=== PATIENT | female | born 1950 | race Caucasian/White ===

== ENCOUNTER → 2018-06-03 10:04 | Outpatient (CLI) | payer OTHER, SELFPAY ==
--- NOTE | 2018-06-03 10:11 | XR_ITS ---
DEXA SCAN.-BONE DENSITY STUDY HIPS AND LUMBAR SPINE HISTORY: Postmenopausal female 68-year-old female. HISTORY of fracture as an adult. Hypothyroidism. Low calcium intake. Smoker. Takes levothyroxine. TECHNIQUE: DEXA scan hip and lumbar spine The most complete data summary and color graphic presentation of the today's ( and any prior ) DEXA findings are available in PACS. Definition and treatment guidelines included. COMPARISON: None listed LUMBAR SPINE: Normal bone density overall and at all vertebral body levels L2 vertebral body demonstrates the lowest T score 0.0 with BMD1.195 g/cm sq Overall mean lumbar L1-L4 T score 0.8 with BMD1.28 g/cm sq . . HIPS: Femoral neck density is best predictor of hip fracture risk . Left femoral neck demonstrates the lowest T score = -0.6 with BMD0.961 g/cm sq . Normal bone density Right femoral neck T score = -0.9 Averaging all regions yields today's today's Hip Mean T score 0.1 with BMD1.02 g/cm sq . . IMPRESSION 1. LUMBAR SPINE: Normal bone density overall , as well as at each all vertebral body levels 2. HIPS: Normal bone density at hips overall. Overall hip T score = -0.1. Also normal density at right and left femoral neck WHO criteria for post-menopausal, Women: Normal: T-score at or above -1 SD Osteopenia: T-score between -1 and -2.5 SD Osteoporosis: T-score at or below -2.5 SD
--- NOTE | 2018-06-03 10:11 | MM_ITS ---
MM Dig screening mamm BI w/CAD ORDERING PHYSICIAN : Malvin Blackman PATIENT AGE: 68 years GENDER: Female COMPARISON: August 2013, July 2012 screening mammogram digital INDICATION: ITS.REASON: SCREENING no hormones. No new complaints. Noncontributory family history. TECHNIQUE: Standard CC and MLO images were obtained. R2 CAD reviewed. FINDINGS: Low-density breast. Generalized fatty replacement. No dominant mass nor suspicious calcifications in either breast. No significant new areas of concern in either breast. Bilateral follow-up in one year adequate CAD computer review highlights no areas of concern either. IMPRESSION: Stable bilateral mammogram. Low-density breast with no areas of concern. Bilateral follow-up in one year recommended BI-RADS Category: 1 Negative RECOMMENDED FOLLOW-UP: 1YR 1 YEAR FOLLOW-UP (A letter has been sent to the patient regarding results of the study.)
== END ==
PROVIDERS: Family Provider Internal Medicine; PCP Internal Medicine; Visit Provider Internal Medicine
DX: Z12.31 Encounter for screening mammogram for malignant neoplasm of breast (principal); Z13.820 Encounter for screening for osteoporosis; Z78.0 Asymptomatic menopausal state
CPT/HCPCS: 77067; 77080

== ENCOUNTER → 2018-06-20 14:03 | Outpatient (POV) | payer OTHER, SELFPAY | PROVIDERS: Family Provider Internal Medicine; PCP Internal Medicine; Visit Provider Dermatology | DX: Z00.00 Encounter for general adult medical examination without abnormal findings (principal) ==

== ENCOUNTER 2020-08-06 13:31 | Emergency (ER) | payer OTHER, MEDICARE, SELFPAY ==
[2020-08-06 13:32] VITALS: BP 142/63; PULSE 97; RESP 18; TEMP 38.2; O2SAT 99; BMI 30.9
--- NOTE | 2020-08-06 13:51 | XR_ITS ---
PROCEDURE: XR CHEST PORTABLE CLINICAL HISTORY: cough cough with fever and chills COMPARISON: CR CXR CHEST(2 VIEWS-NOT PORTABLE) from 04/15/2017 FINDINGS: The cardiomediastinal silhouette and pulmonary vascularity are within normal limits. There is patchy density overlying the left lower lobe suspicious for an area of atelectasis or infiltrate. The remaining lungs are clear. No acute bony abnormalities. IMPRESSION: Left lower lobe atelectasis or infiltrate Dictated by: Jason Duran MD 08/06/2020 14:34 Jason Duran MD in [place] 08/06/2020 14:34
[2020-08-06 13:59] VITALS: BP 142/63; PULSE 93; O2SAT 98
--- NOTE | 2020-08-06 14:06 | HMH.EDGENADL ---
ED Disposition Clinical Impression: Gastroenteritis Left lower lobe pneumonia Qualifiers: Pneumonia type: due to unspecified organism Qualified Code(s): J18.9 - Pneumonia, unspecified organism Disposition: Home, Self-Care Condition on Discharge: Good Instructions: DI for Diarrhea and Traveler's Diarrhea -- Adult, DI for Pneumonia -- Adult Prescriptions: Doxycycline Hyclate [Doxycycline 100mg Capsule] 100 mg PO Q12 #20 cap [id number] Ondansetron [Zofran 4mg ODT] 4 mg PO BIDP PRN #6 tab PRN Reason: Nausea And Vomiting Transmission Status[facility] Referrals: Malvin Blackman [Primary Care Provider] - - Critical Care Critical Care Time: No Attestation: On 08/06/20, the high probability of a clinically significant, sudden or life threatening deterioration of the following system(s) required my full and direct attention, intervention and personal management. The time I documented below is in addition to time spent performing reported procedures but includes the following listed in this critical care notation. Medical Decision Making - Medical Records Medical records reviewed: Yes: I reviewed the patient's medical records. - Terrance Inquiry Pt receiving controlled substance: No Vital Signs: 08/06/20 13:32 08/06/20 13:59 08/06/20 14:33 Temperature 100.8 F H Temperature Source Oral Pulse Rate [Right] 97 H 93 H 90 Respiratory Rate 18 20 Blood Pressure [Right Arm] 142/63 H 142/63 H 142/64 H Blood Pressure Mean [Right Arm] 89 89 90 Blood Pressure Source [Right Arm] Automatic Cuff Automatic Cuff Automatic Cuff Blood Pressure Position [Right Arm] Sitting Sitting Sitting 02 Sat by Pulse Oximetry 99 98 92 L Oxygen Delivery Method Room Air Nasal Cannula Room Air Oxygen Flow Rate (LPM) 2 08/06/20 15:20 Temperature Temperature Source Pulse Rate [Right] 101 H Respiratory Rate 20 Blood Pressure [Right Arm] 149/59 H Blood Pressure Mean [Right Arm] 89 Blood Pressure Source [Right Arm] Automatic Cuff Blood Pressure Position [Right Arm] Sitting 02 Sat by Pulse Oximetry 98 Oxygen Delivery Method Room Air Oxygen Flow Rate (LPM) - Lab Data Lab Results 08/06/20 13:55: WBC 12.0 H, RBC 5.18, Hgb 15.9, Hct 47.6 H, MCV 91.9, MCH 30.7, MCHC 33.4, RDW 13.7, Plt Count 263, MPV 9.3, Neut % (Auto) 77.9, Lymph % (Auto) 17.7, [place] % (Auto) 1.5 L, Eos % (Auto) 2.3, Baso % (Auto) 0.7, Neut # (Auto) 9.3 H, Lymph # (Auto) 2.1, [place] # (Auto) 0.2, Eos # (Auto) 0.3, Baso # (Auto) 0.1 08/06/20 13:55: Sodium 143, Potassium 3.8, Chloride 106, Carbon Dioxide 28, Anion Gap 12.8, BUN 19 H, Creatinine 0.60, Estimated Creat Clear 69, Estimated GFR 99, Est GFR ( Amer) 120, Glucose 95, Calcium 9.5, Total Bilirubin 0.6, AST 28, ALT 25, Alkaline Phosphatase 75, Troponin I < 0.01, Total Protein 7.0, Albumin 4.3, Globulin 2.7, Albumin/Globulin Ratio 1.6, Lipase 97 08/06/20 13:55: Lactate 1.8 08/06/20 14:30: Influenza Type A Ag Negative, Influenza Type B Ag Negative Result diagrams: 08/06/20 13:55 08/06/20 13:55 Orders (Tests/Meds): ED MEDICATIONS Generic Name Dose Route Start Last Admin Trade Name Freq PRN Reason Stop Dose Admin Sodium Chloride 8 ml 08/06/20 13:51 Sodium Chloride 0.9% 10ml Vial IV 09/05/20 13:50 NEEDED PRN dilute pepcid Discontinued Medications Generic Name Dose Route Start Last Admin Trade Name Freq PRN Reason Stop Dose Admin Acetaminophen 1,000 mg 08/06/20 14:26 08/06/20 15:26 Acetaminophen 500mg Tab PO 08/06/20 14:27 1,000 mg ONCE ONE Administration Famotidine 20 mg 08/06/20 13:51 08/06/20 14:32 Famotidine 20mg/2ml Vial IV 08/06/20 13:52 20 mg ONCE ONE Administration Sodium Chloride 1,000 mls @ 999 mls/hr 08/06/20 14:00 08/06/20 14:05 Sod Chlor 0.9% 1000ml Bag IV 08/06/20 15:00 999 mls/hr .Q1H1M CYNTHIA Administration Ondansetron HCl 4 mg 08/06/20 13:51 08/06/20 14:07
[2020-08-06 14:08] LABS: Basophils # 0.1 K/mm3 (0-0.2); Basophils % 0.7 % (0.1-2.0); Eosinophils # 0.3 K/mm3 (0.0-0.4); Eosinophils % 2.3 % (0.1-12.0); Hematocrit 47.6 % (37.0-47.0); Hemoglobin 15.9 g/dL (12.2-16.2); Lymphocytes # 2.1 K/mm3 (0.7-4.5); Lymphocytes % 17.7 % (10-50); Mean Corpuscular HGB Conc 33.4 g/dL (31.8-35.4); Mean Corpuscular Hemoglobin 30.7 pg (27.0-31.2); Mean Corpuscular Volume 91.9 fl (81-99); Mean Platelet Volume 9.3 fl (7.4-10.4); Monocytes # 0.2 K/mm3 (0.1-1.0); Monocytes % 1.5 % (1.7-9.3); Neutrophils # 9.3 K/mm3 (1.8-7.8); Neutrophils % 77.9 % (37.0-80.0); Platelet Count 263 K/mm3 (142-424); Red Blood Count 5.18 M/mm3 (4.20-5.40); Red Cell Distribution Width 13.7 % (11.5-17.5)
[2020-08-06 14:12] LABS: Chloride 106 mmol/L (98-107); Potassium 3.8 mmoL/L (3.5-5.1); Sodium 143 mmol/L (136-145)
[2020-08-06 14:14] LABS: Alanine Aminotransferase 25 U/L (12-78); Blood Urea Nitrogen 19 mg/dl (7-17); Creatinine Clearance Estimated 69 mL/min (50-200); Estimated Glomerular Filt Rate 99 ml/min (>60); GFR (African American) 120 ML/MIN (>60)
[2020-08-06 14:15] LABS: Albumin Level 4.3 g/dl (3.5-5.0); Albumin/Globulin Ratio 1.6 (1.1-1.8); Alkaline Phosphatase 75 U/L (38-126); Anion Gap 12.8 mEq/L (5-15); Aspartate Amino Transferase 28 U/L (14-36); Bilirubin,Total 0.6 mg/dl (0.2-1.3); Calcium 9.5 mg/dl (8.4-10.2); Carbon Dioxide 28 mmol/L (22.0-30.0); Globulin 2.7 g/dL (1.3-3.2); Glucose 95 mg/dl (74-100); Lipase 97 U/L (23-300)
[2020-08-06 14:16] LABS: Lactic Acid 1.8 mmol/L (0.7-2.1)
[2020-08-06 14:30] LABS: Troponin I < 0.01 ng/ml (0.00-0.034)
[2020-08-06 14:33] VITALS: BP 142/64; PULSE 90; RESP 20; O2SAT 92
--- NOTE | 2020-08-06 14:33 | PC.NURSE ---
Pt states that she is unable to urinate at this time
[2020-08-06 15:20] VITALS: BP 149/59; PULSE 101; RESP 20; O2SAT 98
[2020-08-06 15:49] VITALS: BP 146/65; PULSE 97; RESP 20; TEMP 38.2; O2SAT 100
== END 2020-08-06 15:51 | disposition home or self-care (01) ==
PROVIDERS: Emergency Provider Emergency Medicine; PCP Internal Medicine
DX: K52.9 Noninfective gastroenteritis and colitis, unspecified (principal); J18.9 Pneumonia, unspecified organism; Z20.828 Contact with and (suspected) exposure to other viral communicable diseases; E03.9 Hypothyroidism, unspecified; F17.210 Nicotine dependence, cigarettes, uncomplicated; Z79.899 Other long term (current) drug therapy
CPT/HCPCS: 71045; 80053; 83605; 83690; 84484; 85025; 87275; 87276; 96365; 96375; 99284; J2405; U0003

== ENCOUNTER 2021-02-10 10:02 | Emergency (ER) | payer BC, MEDICARE, SELFPAY ==
[2021-02-10 10:11] VITALS: BP 123/87; PULSE 83; RESP 18; TEMP 37; O2SAT 98; BMI 34.3
--- NOTE | 2021-02-10 10:29 | HMH.EDUTC ---
[facility] [place]ression: Diverticulitis Disposition: Home, Self-Care Condition on Discharge: Good Instructions: Diverticulitis Additional Instructions: Turn to the emergency department for worsening abdominal pain nausea vomiting or any other concerns within the next 8 hours otherwise take antibiotics head was instructed and follow-up with primary care physician Prescriptions: Ciprofloxacin [Ciprofloxacin 500mg/5ml Oral Susp] 500 mg PO BID 10 Days ml Prescription Printed Ciprofloxacin HCl 500 mg PO BID 10 Days #20 tab [facility]: [email or web address] metroNIDAZOLE [metroNIDAZOLE 500mg Tablet] 500 mg PO TID 10 Days #30 tab Transmission Status: Re[facility] by [email or web address] Ondansetron [Zofran 4mg ODT] 4 mg PO TIDP PRN #15 tab PRN Reason: Nausea Transmission Status: [email or web address] Referrals: Malvin Blackman [Primary Care Provider] - Medical Decision Making - Medical Records Medical records reviewed: No: I reviewed the patient's medical records. - Terrance Inquiry Pt receiving controlled substance: No Vital Signs: 02/10/21 10:11 02/10/21 11:04 02/10/21 11:34 Temperature 98.6 F 98.6 F Temperature Source Oral Oral Pulse Rate Pulse Rate [Right] 83 81 94 H Respiratory Rate 18 16 20 Blood Pressure Blood Pressure [Right Arm] 123/87 133/71 107/44 L Blood Pressure Mean [Right Arm] 99 91 65 Blood Pressure Source [Right Arm] Automatic Cuff 02 Sat by Pulse Oximetry 98 97 98 Oxygen Delivery Method Room Air Room Air 02/10/21 12:52 Temperature 98.2 F Temperature Source Oral Pulse Rate 91 H Pulse Rate [Right] Respiratory Rate 16 Blood Pressure 123/54 L Blood Pressure [Right Arm] Blood Pressure Mean [Right Arm] Blood Pressure Source [Right Arm] 02 Sat by Pulse Oximetry Oxygen Delivery Method - Lab Data Lab results reviewed: Yes: I reviewed the patient's lab results. Lab Results 02/10/21 10:50: WBC 12.4 H, RBC 5.21, Hgb 15.9, Hct 49.2 H, MCV 94.3, MCH 30.5, MCHC 32.4, RDW 13.6, Plt Count 192, MPV 8.4, Neut % (Auto) 82.5 H, Lymph % (Auto) 14.6, [facility] % (Auto) 1.7, Eos % (Auto) 0.7, Baso % (Auto) 0.5, Neut # (Auto) 10.2 H, Lymph # (Auto) 1.8, [facility] # (Auto) 0.2, Eos # (Auto) 0.1, Baso # (Auto) 0.1 02/10/21 10:50: Sodium 141, Potassium 3.9, Chloride 101, Carbon Dioxide 24, Anion Gap 19.9 H, BUN 27 H, Creatinine 0.90, Estimated Creat Clear 77, Estimated GFR 62, Est GFR ( Amer) 75, Glucose 129 H, Calcium 9.6, Total Bilirubin 1.5 H, AST 41 H, ALT 33, Alkaline Phosphatase 84, Total Protein 7.7, Albumin 4.8, Globulin 2.9, Albumin/Globulin Ratio 1.7 02/10/21 10:50: Magnesium 1.8, Lipase 47 02/10/21 10:59: Stl Aeromonas (PCR) Not detected, Stl C. cayetanensis PCR Not detected, Stool Rotavirus (PCR) Not detected, Stl Adenov F 40/41 PCR Not detected, Stool Astrovirus (PCR) Not detected, Stool Campylobacter PCR Not detected, Stl C.difficile Tox PCR Not detected, Stool Cryptosporidium PCR Not detected, Stl E.coli Shiga Tox PCR Not detected, Stool E coli O157 PCR Not detected, Stl Enterotoxigenic E PCR Not detected, Stool EPEC (PCR) Not detected, Stool EAEC (PCR) Not detected, Stl E. histolytica PCR Not detected, Stool Giardia Lamblia PCR Not detected, Stool Salmonella PCR Not detected, Stool Sapovirus (PCR) Not detected, Stl P. shigelloides PCR Not detected, Stl Shigella/EIEC PCR Not detected, St Y.enterocolitica PCR Not detected, Stool Vibrio (PCR) Not detected, Stl Vibrio cholerae PCR Not detected, Stl Norovirus GI/GII PCR Not detected 02/10/21 11:15: Lactate 3.6 H Result diagrams: 02/10/21 10:50 02/10/21 10:50 Orders (Tests/Meds): ED MEDICATIONS Discontinued Medications Generic Name Dose Route Start Last Admin Trade Name Freq PRN Reason Stop Dose Admin Acetaminophen 650 mg 02/10/21 10:31 02/10/21 11:09 Acetaminophen 325mg Tab PO 02/10/21 10:32 650 mg ONCE ONE Administration Sodium Chloride 1,000 mls @ 999 mls/hr
--- NOTE | 2021-02-10 10:54 | PC.NURSE ---
SPOKE WITH LIBRA CHINO GIVING REPORT. PT TAKEN TO ROOM EIGHT BY WHEELCHAIR.
[2021-02-10 10:56] LABS: Basophils # 0.1 K/mm3 (0-0.2); Basophils % 0.5 % (0.1-2.0); Eosinophils # 0.1 K/mm3 (0.0-0.4); Eosinophils % 0.7 % (0.1-12.0); Hematocrit 49.2 % (37.0-47.0); Hemoglobin 15.9 g/dL (12.2-16.2); Lymphocytes # 1.8 K/mm3 (0.7-4.5); Lymphocytes % 14.6 % (10-50); Mean Corpuscular HGB Conc 32.4 g/dL (31.8-35.4); Mean Corpuscular Hemoglobin 30.5 pg (27.0-31.2); Mean Corpuscular Volume 94.3 fl (81-99); Mean Platelet Volume 8.4 fl (7.4-10.4); Monocytes # 0.2 K/mm3 (0.1-1.0); Monocytes % 1.7 % (1.7-9.3); Neutrophils # 10.2 K/mm3 (1.8-7.8); Neutrophils % 82.5 % (37.0-80.0); Platelet Count 192 K/mm3 (142-424); Red Blood Count 5.21 M/mm3 (4.20-5.40); Red Cell Distribution Width 13.6 % (11.5-17.5); White Blood Count 12.4 K/mm3 (4.8-10.8)
--- NOTE | 2021-02-10 11:01 | CT_ITS ---
PROCEDURE: CT ABDOMEN PELVIS W CON CLINICAL INDICATION: abdominal pain COMPARISON: No exams were available for comparison TECHNIQUE: IV Contrast: 75ML Isovue 370 Oral Contrast None Axial images obtained with sagittal and coronal reformats. All CT scans at the facility use one or more dose reduction, viz: automated exposure control, ma/kV adjustment per patient size (including targeted exams where dose is matched to indication, i.e. head), or iterative reconstruction technique. FINDINGS: LOWER THORAX: Mild atelectatic or fibrotic changes are present in the lingula ABDOMEN & PELVIS: Hepatic steatosis. No focal liver lesion is evident. The spleen, adrenal glands, and pancreas have an unremarkable appearance. No renal calculi or renal mass or hydronephrosis. There is mild somewhat diffuse thickening of the sigmoid colon with some minimal stranding of the pericolic fat suspicious for diverticulitis. No abscess or free air is apparent. There is mild diffuse thickening of the cecum ascending colon transverse and descending colon with multiple colonic diverticula noted. There is mild diffuse thickening also of the sigmoid colon. There are some some air-fluid levels in the sigmoid colon and ascending colon. The small bowel has an unremarkable appearance. Status post hysterectomy. Small amount fluid is present in the pelvis and adjacent to the left aspect of the sigmoid colon No acute bony anomalies. IMPRESSION: 1. Mild diffuse thickening of the colon with a few scattered air-fluid levels consistent with colitis. 2. There is colonic diverticulosis with slight increase in thickening of the sigmoid colon compared to the remaining colon with some stranding of the pericolic fat and a small amount of fluid along the left aspect of the sigmoid colon suggesting associated diverticulitis. No abscess or free air. Dictated by: Jason Duran MD 02/10/2021 11:58 Jason Duran MD in [place] 02/10/2021 11:58
[2021-02-10 11:04] VITALS: BP 133/71; PULSE 81; RESP 16; TEMP 37; O2SAT 97; BMI 34.3
[2021-02-10 11:05] LABS: Chloride 101 mmol/L (98-107); Potassium 3.9 mmoL/L (3.5-5.1); Sodium 141 mmol/L (136-145)
[2021-02-10 11:08] LABS: Alanine Aminotransferase 33 U/L (12-78); Albumin Level 4.8 g/dl (3.5-5.0); Albumin/Globulin Ratio 1.7 (1.1-1.8); Alkaline Phosphatase 84 U/L (38-126); Anion Gap 19.9 mEq/L (5-15); Aspartate Amino Transferase 41 U/L (14-36); Bilirubin,Total 1.5 mg/dl (0.2-1.3); Blood Urea Nitrogen 27 mg/dl (7-17); Calcium 9.6 mg/dl (8.4-10.2); Carbon Dioxide 24 mmol/L (22.0-30.0); Creatinine Clearance Estimated 77 mL/min (50-200); Estimated Glomerular Filt Rate 62 ml/min (>60); GFR (African American) 75 ML/MIN (>60); Globulin 2.9 g/dL (1.3-3.2); Glucose 129 mg/dl (74-100); Total Protein,Serum 7.7 g/dl (6.3-8.2)
--- NOTE | 2021-02-10 11:13 | HMH.EDABDPAI ---
ED Disposition Clinical Impression: Diverticulitis Disposition: Home, Self-Care Condition on Discharge: Good Instructions: Diverticulitis Additional Instructions: Turn to the emergency department for worsening abdominal pain nausea vomiting or any other concerns within the next 8 hours otherwise take antibiotics head was instructed and follow-up with primary care physician Prescriptions: Ciprofloxacin [Ciprofloxacin 500mg/5ml Oral Susp] 500 mg PO BID 10 Days ml Prescription Printed Ciprofloxacin HCl 500 mg PO BID 10 Days #20 tab Transmission Status: Pending to [facility] metroNIDAZOLE [metroNIDAZOLE 500mg Tablet] 500 mg PO TID 10 Days #30 tab Transmission Status: Pending to [facility] Ondansetron [Zofran 4mg ODT] 4 mg PO TIDP PRN #15 tab PRN Reason: Nausea Transmission Status: Pending to [facility] Referrals: Malvin Blackman [Primary Care Provider] - - Critical Care Critical Care Time: No Attestation: On 02/10/21, the high probability of a clinically significant, sudden or life threatening deterioration of the following system(s) required my full and direct attention, intervention and personal management. The time I documented below is in addition to time spent performing reported procedures but includes the following listed in this critical care notation. Medical Decision Making - Medical Records Medical records reviewed: Yes: I reviewed the patient's medical records. - Terrance Inquiry Pt receiving controlled substance: No Vital Signs: 02/10/21 10:11 02/10/21 11:04 02/10/21 11:34 Temperature 98.6 F 98.6 F Temperature Source Oral Oral Pulse Rate [Right] 83 81 94 H Respiratory Rate 18 16 20 Blood Pressure [Right Arm] 123/87 133/71 107/44 L Blood Pressure Mean [Right Arm] 99 91 65 Blood Pressure Source [Right Arm] Automatic Cuff 02 Sat by Pulse Oximetry 98 97 98 Oxygen Delivery Method Room Air Room Air - Lab Data Lab Results 02/10/21 10:50: WBC 12.4 H, RBC 5.21, Hgb 15.9, Hct 49.2 H, MCV 94.3, MCH 30.5, MCHC 32.4, RDW 13.6, Plt Count 192, MPV 8.4, Neut % (Auto) 82.5 H, Lymph % (Auto) 14.6, [place] % (Auto) 1.7, Eos % (Auto) 0.7, Baso % (Auto) 0.5, Neut # (Auto) 10.2 H, Lymph # (Auto) 1.8, [place] # (Auto) 0.2, Eos # (Auto) 0.1, Baso # (Auto) 0.1 02/10/21 10:50: Sodium 141, Potassium 3.9, Chloride 101, Carbon Dioxide 24, Anion Gap 19.9 H, BUN 27 H, Creatinine 0.90, Estimated Creat Clear 77, Estimated GFR 62, Est GFR ( Amer) 75, Glucose 129 H, Calcium 9.6, Total Bilirubin 1.5 H, AST 41 H, ALT 33, Alkaline Phosphatase 84, Total Protein 7.7, Albumin 4.8, Globulin 2.9, Albumin/Globulin Ratio 1.7 02/10/21 10:50: Magnesium 1.8, Lipase 47 02/10/21 11:15: Lactate 3.6 H Result diagrams: 02/10/21 10:50 02/10/21 10:50 Orders (Tests/Meds): ED MEDICATIONS Discontinued Medications Generic Name Dose Route Start Last Admin Trade Name Ajitq PRN Reason Stop Dose Admin Acetaminophen 650 mg 02/10/21 10:31 02/10/21 11:09 Acetaminophen 325mg Tab PO 02/10/21 10:32 650 mg ONCE ONE Administration Sodium Chloride 1,000 mls @ 999 mls/hr 02/10/21 11:15 02/10/21 11:19 Sod Chlor 0.9% 1000ml Bag IV 02/10/21 12:15 999 mls/hr .Q1H1M CYNTHIA Administration Iopamidol 75 ml 02/10/21 11:42 02/10/21 11:44 Iopamidol-370 (76%);100ml Bottle IV 02/10/21 11:43 75 ml ONCE ONE Administration Morphine Sulfate 4 mg 02/10/21 11:02 02/10/21 11:18 Morphine 4mg/Ml Syringe IV 02/10/21 11:03 4 mg ONCE ONE Administration Ondansetron HCl 4 mg 02/10/21 11:02 02/10/21 11:18 Ondansetron 4mg Odt SL 02/10/21 11:03 4 mg ONCE ONE Administration Sodium Chloride 10 ml 02/10/21 11:42 02/10/21 11:44 Sodium Chloride 0.9% 10ml Syr (Rad Only) IV 02/10/21 11:43 10 ml ONCE ONE Administration ORDERS Category Date Time Status Diarrhea 23 Panel, PCR Stat Lab 02/10/21 10:59 Received Urinalysis and Microscopic Stat Lab 02/10/21 11:01 Ord
[2021-02-10 11:23] LABS: Lipase 47 U/L (23-300)
[2021-02-10 11:24] LABS: Magnesium 1.8 mg/dl (1.6-2.3)
[2021-02-10 11:34] VITALS: BP 107/44; PULSE 94; RESP 20; O2SAT 98
--- NOTE | 2021-02-10 11:34 | PC.NURSE ---
PT going for CT
[2021-02-10 11:49] LABS: Lactic Acid 3.6 mmol/L (0.7-2.1)
[2021-02-10 12:00] LABS: Adenovirus F 40/41, stool Not Detected (NotDetected); Astrovirus Not Detected (NotDetected); Campylobacter Not Detected (NotDetected); Clostridium Difficile A/B, PCR Not Detected (NotDetected); Cryptosporidium Not Detected (NotDetected); Cyclospora Cayetanesis Not Detected (NotDetected); Entamoeba histolytica Not Detected (NotDetected); Enteroaggregative E coli Not Detected (NotDetected); Enteropathogenic E coli Not Detected (NotDetected); Enterotoxigenic E coli Not Detected (NotDetected); Giardia lamblia Not Detected (NotDetected); Norovirus Not Detected (NotDetected); Plesimonas Shigalloides, PCR Not Detected (NotDetected); Rotavirus A Not Detected (NotDetected); Salmonella, PCR Not Detected (NotDetected); Sapovirus Not Detected (NotDetected); Shiga-like toxin E coli Not Detected (NotDetected); Shigella Enterovasive E coli Not Detected (NotDetected); Vibrio Cholerae Not Detected (NotDetected); Vibrio, PCR Not Detected (NotDetected); Yersinia Entercolitica, PCR Not Detected (NotDetected)
[2021-02-10 12:52] VITALS: BP 123/54; PULSE 91; RESP 16; TEMP 36.8; O2SAT 97
[2021-02-10 15:20] LABS: Reflex Lactic Add Lactic Reflex
== END 2021-02-10 12:50 | disposition home or self-care (01) ==
LOC: UTC 10:08 → ER 10:52
PROVIDERS: Nurse Practitioner Family; Emergency Provider Emergency Medicine; PCP Internal Medicine
DX: K57.92 Diverticulitis of intestine, part unspecified, without perforation or abscess without bleeding (principal); E03.9 Hypothyroidism, unspecified; F17.210 Nicotine dependence, cigarettes, uncomplicated
CPT/HCPCS: 74177; 80053; 83605; 83690; 83735; 85025; 87507; 99283; Q9967

== ENCOUNTER 2021-02-12 09:39 | Inpatient (IN) | payer BC, MEDICARE, SELFPAY ==
[2021-02-12] VITALS (15 sets, daily range): BP systolic 102–132; BP diastolic 51–69; PULSE 67–84; RESP 16–18; TEMP 36.5–36.7; O2SAT 91–98; BMI 34.3; BMI 33.1
--- NOTE | 2021-02-12 09:47 | HMH.EDGENADL ---
ED Disposition Clinical Impression: Diverticulitis, Colitis, Hypokalemia Disposition: Admitted as Observation Condition on Discharge: Fair Referrals: Malvin Blackman [Primary Care Provider] - - Critical Care Critical Care Time: No Attestation: On 02/12/21, the high probability of a clinically significant, sudden or life threatening deterioration of the following system(s) required my full and direct attention, intervention and personal management. The time I documented below is in addition to time spent performing reported procedures but includes the following listed in this critical care notation. Medical Decision Making - Medical Records Medical records reviewed: Yes: I reviewed the patient's medical records. MR Comment: See department visit 02/10/2021. See CT scan result below. Diarrhea panel negative. - Terrance Inquiry Pt receiving controlled substance: Yes Terrance was queried for this patient: Yes Risks and benefits of using a controlled substance: were not discussed with pt by me Vital Signs: 02/12/21 09:40 02/12/21 09:48 02/12/21 10:00 Temperature 97.7 F Temperature Source Oral Pulse Rate Pulse Rate [Left Radial] 74 Respiratory Rate 18 Blood Pressure 111/51 L 120/58 L Blood Pressure [Right Arm] 111/51 L Blood Pressure Mean 66 76 Blood Pressure Mean [Right Arm] 71 Blood Pressure Source [Right Arm] Automatic Cuff Blood Pressure Position [Right Arm] Sitting 02 Sat by Pulse Oximetry 95 95 94 L Oxygen Delivery Method Room Air 02/12/21 10:15 02/12/21 10:19 02/12/21 10:53 Temperature Temperature Source Pulse Rate 78 78 84 Pulse Rate [Left Radial] Respiratory Rate Blood Pressure 120/58 L 102/51 L 119/59 L Blood Pressure [Right Arm] Blood Pressure Mean Blood Pressure Mean [Right Arm] Blood Pressure Source [Right Arm] Blood Pressure Position [Right Arm] 02 Sat by Pulse Oximetry 95 94 L 96 Oxygen Delivery Method Room Air 02/12/21 11:01 Temperature Temperature Source Pulse Rate 78 Pulse Rate [Left Radial] Respiratory Rate Blood Pressure 130/52 L Blood Pressure [Right Arm] Blood Pressure Mean Blood Pressure Mean [Right Arm] Blood Pressure Source [Right Arm] Blood Pressure Position [Right Arm] 02 Sat by Pulse Oximetry 96 Oxygen Delivery Method - Lab Data Lab Results 02/12/21 10:01: WBC 12.8 H, RBC 4.78, Hgb 14.5, Hct 42.0, MCV 87.8, MCH 30.4, MCHC 34.6, RDW 13.5, Plt Count 153, MPV 9.5, Neut % (Auto) 80.0, Lymph % (Auto) 14.7, [place] % (Auto) 4.6, Eos % (Auto) 0.2, Baso % (Auto) 0.4, Neut # (Auto) 10.2 H, Lymph # (Auto) 1.9, [place] # (Auto) 0.6, Eos # (Auto) 0.0, Baso # (Auto) 0.1, ESR 8 02/12/21 10:01: Sodium 137, Potassium 3.2 L, Chloride 103, Carbon Dioxide 23, Anion Gap 14.2, BUN 27 H, Creatinine 0.80, Estimated Creat Clear 77, Estimated GFR 71, Est GFR ( Amer) 86, Glucose 123 H, Calcium 9.2, Total Bilirubin 1.0, AST 42 H, ALT 26, Alkaline Phosphatase 86, C-Reactive Protein 247.3 H, Total Protein 7.1, Albumin 4.2, Globulin 2.9, Albumin/Globulin Ratio 1.4 02/12/21 10:01: Lactate 1.2 02/12/21 10:01: Procalcitonin 10.7 H Result diagrams: 02/12/21 10:01 02/12/21 10:01 Orders (Tests/Meds): ED MEDICATIONS Generic Name Dose Route Start Last Admin Trade Name Freq PRN Reason Stop Dose Admin Metronidazole 500 mg in 100 mls @ 100 mls/hr 02/12/21 11:45 Flagyl 500mg/100ml Ivpb IV 02/26/21 11:44 Q8H CYNTHIA Protocol Levofloxacin/Dextrose 750 mg in 150 mls @ 100 mls/hr 02/12/21 11:45 Levofloxacin 750mg/150ml Premix IV 02/26/21 11:44 Q24H CYNTHIA Protocol Discontinued Medications Generic Name Dose Route Start Last Admin Trade Name Freq PRN Reason Stop Dose Admin Iopamidol 75 ml 02/12/21 10:55 02/12/21 10:56 Iopamidol-370 (76%);100ml Bottle IV 02/12/21 10:56 75 ml ONCE ONE Administration Morphine Sulfate 4 mg 02/12/21 10:00 02/12/21 10:10 Morphine 4mg/Ml Syringe IV 02/12/21 10:0
--- NOTE | 2021-02-12 09:52 | CT_ITS ---
PROCEDURE INFORMATION: Exam: CT Abdomen And Pelvis With Contrast Exam date and time: 02/12/2021 9:52 AM Age: 70 years old Clinical indication: Abdominal pain TECHNIQUE: Imaging protocol: Computed tomography of the abdomen and pelvis with contrast. Radiation optimization: All CT scans at this facility use at least one of these dose optimization techniques: automated exposure control; mA and/or kV adjustment per patient size (includes targeted exams where dose is matched to clinical indication); or iterative reconstruction. Contrast material: ISOVUE; Contrast volume: 75 ml; Contrast route: IV; COMPARISON: CT ABDOMEN PELVIS W CON 02/10/2021 11:38 AM FINDINGS: Liver: Normal. No mass. Gallbladder and bile ducts: Normal. No calcified stones. No ductal dilation. Pancreas: Normal. No ductal dilation. Spleen: Normal. No splenomegaly. Adrenal glands: Normal. No mass. Kidneys and ureters: Normal. No hydronephrosis. Stomach and bowel: Diverticulosis and Bowel wall thickening along the rectosigmoid colon. Mild pericolonic inflammatory changes. No evidence of perforation or abscess formation or bleeding. Findings consistent with acute diverticulitis. Bowel wall thickening in descending colon may represent colitis versus decompressed bowel. A few loops of dilated small bowel may represent ileus. No aurelia obstruction.. Appendix: No evidence of appendicitis. Intraperitoneal space: Unremarkable. No free air. No significant fluid collection. Vasculature: Unremarkable. No abdominal aortic aneurysm. Lymph nodes: Small retroperitoneal nodes. Small nodes nodes anterior to the left common iliac artery and vein. Peripancreatic and periportal nodes. Largest node 18 x 11 mm Urinary bladder: Unremarkable as visualized. Reproductive: Surgical resection of the uterus Bones/joints: Unremarkable. No acute fracture. Soft tissues: Unremarkable. IMPRESSION: 1. Diverticulosis and Bowel wall thickening along the rectosigmoid colon. Mild pericolonic inflammatory changes. No evidence of perforation or abscess formation or bleeding. Findings consistent with acute diverticulitis. 2. As an underlying malignancy cannot be entirely excluded, a follow-up examination after a course of treatment is recommended if clinically warranted. 3. Bowel wall thickening in descending colon may represent colitis versus decompressed bowel. 4. A few loops of dilated small bowel may represent ileus. No aurelia obstruction..
[2021-02-12 10:19] LABS: Basophils # 0.1 K/mm3 (0-0.2); Basophils % 0.4 % (0.1-2.0); Eosinophils % 0.2 % (0.1-12.0); Hemoglobin 14.5 g/dL (12.2-16.2); Lymphocytes # 1.9 K/mm3 (0.7-4.5); Lymphocytes % 14.7 % (10-50); Mean Corpuscular HGB Conc 34.6 g/dL (31.8-35.4); Mean Corpuscular Hemoglobin 30.4 pg (27.0-31.2); Mean Corpuscular Volume 87.8 fl (81-99); Mean Platelet Volume 9.5 fl (7.4-10.4); Monocytes # 0.6 K/mm3 (0.1-1.0); Monocytes % 4.6 % (1.7-9.3); Neutrophils # 10.2 K/mm3 (1.8-7.8); Platelet Count 153 K/mm3 (142-424); Red Blood Count 4.78 M/mm3 (4.20-5.40); Red Cell Distribution Width 13.5 % (11.5-17.5); White Blood Count 12.8 K/mm3 (4.8-10.8)
[2021-02-12 10:27] LABS: Alanine Aminotransferase 26 U/L (12-78); Albumin Level 4.2 g/dl (3.5-5.0); Albumin/Globulin Ratio 1.4 (1.1-1.8); Alkaline Phosphatase 86 U/L (38-126); Anion Gap 14.2 mEq/L (5-15); Aspartate Amino Transferase 42 U/L (14-36); Blood Urea Nitrogen 27 mg/dl (7-17); Calcium 9.2 mg/dl (8.4-10.2); Carbon Dioxide 23 mmol/L (22.0-30.0); Chloride 103 mmol/L (98-107); Creatinine Clearance Estimated 77 mL/min (50-200); Estimated Glomerular Filt Rate 71 ml/min (>60); GFR (African American) 86 ML/MIN (>60); Globulin 2.9 g/dL (1.3-3.2); Glucose 123 mg/dl (74-100); Lactic Acid 1.2 mmol/L (0.7-2.1); Potassium 3.2 mmoL/L (3.5-5.1); Sodium 137 mmol/L (136-145); Total Protein,Serum 7.1 g/dl (6.3-8.2)
[2021-02-12 10:32] LABS: C-Reactive Protein 247.3 mg/L (0-4)
--- NOTE | 2021-02-12 10:38 | PC.NURSE ---
pt to rad.
[2021-02-12 10:39] LABS: Erythrocyte Sedimentation Rate 8 mm/hr (0-30)
[2021-02-12 10:46] LABS: Procalcitonin 10.7 ng/mL (0.0-2.0)
[2021-02-12 11:03] LABS: Adenovirus,PCR Not Detected (NotDetected); Bordetella Pertussis Not Detected (NotDetected); Chlamydophila Pneumoniae, PCR Not Detected (NotDetected); Coronavirus 19, PCR Not Detected (NotDetected); Coronavirus 229E Not Detected (NotDetected); Coronavirus NL63 Not Detected (NotDetected); Coronavirus OC43 Not Detected (NotDetected); Coronovirus HKU1,PCR Not Detected (NotDetected); Human Metapneumovirus Not Detected (NotDetected); Influenza A, PCR Not Detected (NotDetected); Influenza AH1, 2009 Not Detected (NotDetected); Influenza AH1, PCR Not Detected (NotDetected); Influenza AH3,PCR Not Detected (NotDetected); Influenza B, PCR Not Detected (NotDetected); Mycoplasma Pneumoniae, PCR Not Detected (NotDetected); Parainfluenza 1, PCR Not Detected (NotDetected); Parainfluenza 2, PCR Not Detected (NotDetected); Parainfluenza 3, PCR Not Detected (NotDetected); Parainfluenza 4, PCR Not Detected (NotDetected); Respiratory Syncytial Virus Not Detected (NotDetected); Rhinovirus/Enterovirus Not Detected (NotDetected)
--- NOTE | 2021-02-12 11:05 | PC.NURSE ---
Pt returned from rad
--- NOTE | 2021-02-12 12:41 | PC.NURSE ---
Report given to Chloé CHINO
--- NOTE | 2021-02-12 12:55 | PC.NURSE ---
Pt transporting to her room on the floor
--- NOTE | 2021-02-12 13:05 | P.CONPHA_ITS ---
[facility] Pharmacy VTE Monitoring - Patient Demographics Admission date: 02/12/21 Report Date: 02/12/21 Time: 13:05 Allergies/Adverse Reactions: Patient Allergies No Known Allergies Allergy (Verified 02/10/21 10:21) Height: 1.63 m Weight: 90.718 kg Patient Problems: Current Active Problems Diverticulitis (Acute) Colitis (Acute) Hypokalemia (Acute) - VTE Risk Labs: VTE Related Lab Results Hgb 14.5 g/dL (12.2-16.2) 02/12/21 10:01 Hct 42.0 % (37.0-47.0) 02/12/21 10:01 Plt Count 153 K/mm3 (142-424) 02/12/21 10:01 BUN 27 mg/dl (7-17) H 02/12/21 10:01 Creatinine 0.80 mg/dl (0.52-1.04) 02/12/21 10:01 Estimated Creat Clear 77 mL/min (50-200) 02/12/21 10:01 - Prophylaxis VTE Prophylaxis Ordered?: Yes Types of VTE Prophylaxis: TEDS Knee High Location of Applied Device: Bilateral Lower Extremeties
--- NOTE | 2021-02-12 13:05 | HMH.PHAINT ---
MEDICATION RECONCILIATION COMPLETED ON PATIENT USING EXTERNAL FILL HISTORY FROM PHARMACY. -MILLICENT RANDOLPH, DONTED
[2021-02-12 15:10] LABS: Microscopic, Urine URINE MICROSCOPIC (MICROSCOPIC)
[2021-02-12 15:17] LABS: Appearance,Urine CLEAR (Clear); Blood, Urine Negative (Negative); Color,Urine DK YELLOW (Yellow); Glucose,Urine (UA) TRACE (Negative); Ketones,Urine 1+ (Negative); Leukocyte Esterase,Urine TRACE (Negative); Nitrate,Urine POSITIVE (Negative); PH,Urine 6.5 (5.0-8.5); Protein,Urine 1+ (Negative); Specific Gravity, Urine >= 1.030 (1.005-1.030)
[2021-02-12 15:21] LABS: Bilirubin,Urine 1+ (Negative)
[2021-02-12 15:23] LABS: WBC,Urine Occasional #/hpf (0-3)
[2021-02-12 15:24] LABS: Amorphous Sediment,Urine 1+ /lpf; Mucus,Urine 1+ /lpf
--- NOTE | 2021-02-12 20:08 | HMH.HP ---
*Admission Date: 02/12/21 *Chief complaint: abd pain *History of present illness: this patient presented to the ed with progressive abd pain and chills - pt with recent dx of diverticulitis and on po abx but has continued to have sx - dec po intake -With a history of abdominal pain, vomiting, dry heaves, diarrhea, fever, chills. Seen in this emergency department on , 2 days ago. Diagnosed with diverticulitis. She has been on Cipro and Flagyl. Fever and chills have resolved, but other symptoms have not improved. Not eating well.pt had ct of abd -Mild diffuse thickening of the colon with a few scattered air-fluid levels consistent with colitis. 2. There is colonic diverticulosis with slight increase in thickening of the sigmoid colon compared to the remaining colon with some stranding of the pericolic fat and a small amount of fluid along the left aspect of the sigmoid colon suggesting associated diverticulitis. No abscess or free air. pt was admitted for ivf and abx with pain meds [facility] History I have reviewed the patient's past medical history: Yes Medical History: Denies:: Cancer, Diabetes Mellitus Type 1, Diabetes Mellitus Type 2 *Have you ever received a pneumonia vaccine?: Yes *Have you received a flu vaccine this season?: Yes Other Medical History: Reports: Hypothyroidism Laterality Cases: Left: Arthroscopy Knee Other Surgeries: Yes: Hysterectomy-Total Amputation: No Fractures: No - *Social History Smoking Status: Current every day smoker Tobacco Type: cigarettes # Packs/Day (cigarettes): 1 #Yrs smoked (if former smoker): 40 Alcohol Intake: current Alcohol Intake Frequency:: holidays/special occasions only Substance Use Type: denies use *Occupational Status:: employed Housing: house Household Members: family *Travel in the last 8 weeks: None Family Hx:: Coronary Artery Disease, Diabetes, Hyperlipidemia, Hypertension, Thyroid Disorder, Substance abuse, Alcoholism Review of Systems - Review of Systems Review of systems:: pertinent systems reviewed and negative unless documented below - Constitutional Reports chills, Reports fever(s) - Eyes Denies change in vision - ENT Denies sore throat - *Cardiovascular Denies chest pain - *Respiratory Denies cough - *Gastrointestinal Reports abdominal pain, Reports cramping, Reports nausea - *Genitourinary Denies blood in urine - *Musculoskeletal Denies joint pain - Integumentary/Breasts Denies rash - *Neurologic Denies localized weakness, Denies headache(s), Denies seizure-like activity - Psychiatric Denies anxiety Meds Home Medications Medication Instructions Recorded Confirmed Type levothyroxine 100 mcg tablet 100 mcg PO DAILY 90 Days #90 tab 12/28/17 02/12/21 History Ondansetron [Zofran 4mg ODT] 4 mg PO TIDP PRN #15 tab 02/10/21 02/12/21 Rx Ciprofloxacin HCl 500 mg PO BID 02/12/21 02/12/21 History metroNIDAZOLE [metroNIDAZOLE 500mg 500 mg PO TID 02/12/21 02/12/21 History Tablet] Allergies Allergy/AdvReac Type Severity Reaction Status Date / Time No Known Allergies Allergy Verified 02/10/21 10:21 Exam Vital signs and Labs for Last 24 Hours: Temp Pulse Resp BP Pulse Ox 98.1 F 77 16 122/62 97 02/12/21 16:00 02/12/21 16:00 02/12/21 16:00 02/12/21 16:00 02/12/21 16:00 Laboratory Results - last 24 hr 02/12/21 09:42: Urine Color Dk yellow, Urine Appearance Clear, Urine pH 6.5, Ur Specific [place] >= 1.030, Urine Protein 1+, Urine Glucose (UA) Trace, Urine Ketones 1+, Urine Blood Negative, Urine Nitrate Positive, Urine Bilirubin 1+ A, Urine Urobilinogen 1.0, Ur Leukocyte Esterase Trace, Urine RBC None, Urine WBC Occasional, Ur Squamous Epith Cells 10-20, Amorphous Sediment 1+, Urine Bacteria None, Urine Mucus 1+ 02/12/21 10:01: WBC 12.8 H, RBC 4.78, Hgb 14.5, Hct 42.0, MCV 87.8, MCH 30.4, MCHC 34.6, RDW 13.5, Plt Count 153, MPV 9.5, Neut % (Auto) 80.0, Lymph % (Auto) 14.7, [place] % (Auto) 4.6,
--- NOTE | 2021-02-13 03:55 | PC.NURSE ---
Patient admitted for Diverticultis/Colitis. Patient currently on Abx, adminstered Flagyl 500 mg IV X 2 this shift. Patient required Pain Rx X1 and was effective. Patient incontinent of bowel X 1, which patient stated was very unusual. Patient oriented X 4 and ambulates to bathroom with no assistance. Will continue to monitor for any acute changes.
[2021-02-13 03:59] VITALS: BP 94/59; PULSE 74; RESP 17; TEMP 36.6; O2SAT 92
[2021-02-13 05:33] VITALS: BMI 33.3
[2021-02-13 08:00] VITALS: BP 115/55; PULSE 73; RESP 16; TEMP 36.9; O2SAT 97
--- NOTE | 2021-02-13 09:43 | HMH.ACPN2 ---
Internal Medicine - PN: Subj *Date: 02/13/21 *Time: 09:43 Interval history: Patient relays a fairly uneventful night. She does have a nagging discomfort in her left lower quadrant. Was diagnosed with diverticulitis as an outpatient in the [facility], placed on appropriate antibiotics but continued to clinically worsen. On IV Levaquin and Flagyl. Has been having some stool, loose and mucousy but not melanotic. Exam Vital signs and Labs for Last 24 Hours: Temp Pulse Resp BP Pulse Ox 98.4 F 73 16 115/55 L 97 02/13/21 08:00 02/13/21 08:00 02/13/21 08:00 02/13/21 08:00 02/13/21 08:00 Laboratory Results - last 24 hr 02/12/21 09:42: Urine Color Dk yellow, Urine Appearance Clear, Urine pH 6.5, Ur Specific [place] >= 1.030, Urine Protein 1+, Urine Glucose (UA) Trace, Urine Ketones 1+, Urine Blood Negative, Urine Nitrate Positive, Urine Bilirubin 1+ A, Urine Urobilinogen 1.0, Ur Leukocyte Esterase Trace, Urine RBC None, Urine WBC Occasional, Ur Squamous Epith Cells 10-20, Amorphous Sediment 1+, Urine Bacteria None, Urine Mucus 1+ 02/12/21 10:01: WBC 12.8 H, RBC 4.78, Hgb 14.5, Hct 42.0, MCV 87.8, MCH 30.4, MCHC 34.6, RDW 13.5, Plt Count 153, MPV 9.5, Neut % (Auto) 80.0, Lymph % (Auto) 14.7, [place] % (Auto) 4.6, Eos % (Auto) 0.2, Baso % (Auto) 0.4, Neut # (Auto) 10.2 H, Lymph # (Auto) 1.9, [place] # (Auto) 0.6, Eos # (Auto) 0.0, Baso # (Auto) 0.1, ESR 8 02/12/21 10:01: Sodium 137, Potassium 3.2 L, Chloride 103, Carbon Dioxide 23, Anion Gap 14.2, BUN 27 H, Creatinine 0.80, Estimated Creat Clear 77, Estimated GFR 71, Est GFR ( Amer) 86, Glucose 123 H, Calcium 9.2, Total Bilirubin 1.0, AST 42 H, ALT 26, Alkaline Phosphatase 86, C-Reactive Protein 247.3 H, Total Protein 7.1, Albumin 4.2, Globulin 2.9, Albumin/Globulin Ratio 1.4 02/12/21 10:01: Lactate 1.2 02/12/21 10:01: Procalcitonin 10.7 H 02/12/21 11:00: Chlamy pneumoniae PCR Not detected, Adenovirus (PCR) Not detected, B. pertussis DNA (PCR) Not detected, Coronavirus OC43 (PCR) Not detected, Coronavirus HKU1 (PCR) Not detected, Coronavirus 229E (PCR) Not detected, SARS-CoV-2 (PCR) Not detected, Coronavirus NL63 (PCR) Not detected, Human Metapneumovir PCR Not detected, Influenza A (H1) PCR Not detected, Influ A (H1N1/09) PCR Not detected, Influenza A (H3) PCR Not detected, Influenza Type A (PCR) Not detected, Influenza Type B (PCR) Not detected, M. pneumoniae (PCR) Not detected, Parainfluenza 1 (PCR) Not detected, Parainfluenza 2 (PCR) Not detected, Parainfluenza 3 (PCR) Not detected, Parainfluenza 4 (PCR) Not detected, RSV (PCR) Not detected, Entero/Rhino (PCR) Not detected I & O for Last 24 hours: Intake & Output 02/10/21 02/11/21 02/12/21 02/13/21 23:59 23:59 23:59 23:59 Intake Total 1340 / 1340 480 / 480 Balance 1340 / 1340 480 / 480 Weight 193 lb 1 oz 195 lb 9 oz - Constitutional no acute distress - *Routine HEENT Exam Head: Present: normocephalic Eye: Present: EOMI, PERRL ENT: Present: mucous membranes moist - *Routine Neck Exam Present: supple. Absent: lymphadenopathy - *Routine Respiratory Exam Present: CTA bilaterally - *Routine Cardiovascular Exam Present: RRR - *Routine Abdominal Exam Present: soft, tenderness, obese. Absent: distended, rebound, wound - *Routine Extremities Exam Absent: cyanosis, clubbing, edema - *Routine Skin Exam Present: warm. Absent: rash - *Routine Neurological Exam Present: alert, oriented X3 Assessment and Plan (1) Obesity (BMI 30.0-34.9) Status: Acute Category: Medical Code(s): E66.9 - Obesity, unspecified (2) Colitis Status: Acute Category: Medical Code(s): K52.9 - Noninfective gastroenteritis and colitis, unspecified (3) Diverticulitis Status: Acute Category: Medical Code(s): K57.92 - Diverticulitis of intestine, part unspecified, without perforation or abscess without bleeding (4) Hypothyroidism (acquired) Status: Acute Category: Medical Code(s): E03.9 - Hypothyroidism, unspeci
[2021-02-13 16:00] VITALS: BP 109/54; PULSE 77; RESP 18; TEMP 36.8; O2SAT 96
--- NOTE | 2021-02-13 16:21 | PC.NURSE ---
PT IS RESTING IN BED. TOLERATING CLEAR LIQUIDS WELL. MEDICATED FOR PAIN/NAUSEA NEEDED. AMBULATES TO THE BATHROOM INDEPENDENTLY. LUNG SOUNDS CLEAR. ABDOMEN SOFT/TENDER WITH ACTIVE BOWEL SOUNDS. VSS. NO SWELLING NOTED TO BLE. SHOWER AND BED CHANGE THIS SHIFT. WILL CONTINUE TO MONITOR.
[2021-02-13 20:00] VITALS: BP 113/49; PULSE 73; RESP 16; TEMP 36.9; O2SAT 97
--- NOTE | 2021-02-14 03:33 | PC.NURSE ---
No acute changes overnight. Pt slept well through the night. C/o pain in abd x1, pain meds given per dec wiht desired effects. Pt ambulating independently to the BR. Tolerating clear liquid diet well. IV patent, NS @ 100. VSS, call light in reach, no concerns at this time.
[2021-02-14 03:39] VITALS: BP 141/48; PULSE 91; RESP 19; TEMP 36.4; O2SAT 93
[2021-02-14 05:11] VITALS: BMI 34.0
[2021-02-14 07:52] LABS: Alanine Aminotransferase 16 U/L (12-78); Albumin Level 2.9 g/dl (3.5-5.0); Albumin/Globulin Ratio 1.1 (1.1-1.8); Alkaline Phosphatase 58 U/L (38-126); Anion Gap 7.4 mEq/L (5-15); Aspartate Amino Transferase 28 U/L (14-36); Basophils # 0.1 K/mm3 (0-0.2); Basophils % 0.7 % (0.1-2.0); Bilirubin,Total 0.5 mg/dl (0.2-1.3); Blood Urea Nitrogen 14 mg/dl (7-17); Calcium 8.3 mg/dl (8.4-10.2); Carbon Dioxide 24 mmol/L (22.0-30.0); Chloride 110 mmol/L (98-107); Creatinine Clearance Estimated 77 mL/min (50-200); Eosinophils # 0.1 K/mm3 (0.0-0.4); Eosinophils % 0.9 % (0.1-12.0); Estimated Glomerular Filt Rate 123 ml/min (>60); GFR (African American) 148 ML/MIN (>60); Globulin 2.6 g/dL (1.3-3.2); Glucose 96 mg/dl (74-100); Hemoglobin 11.7 g/dL (12.2-16.2); Lymphocytes # 2.5 K/mm3 (0.7-4.5); Mean Corpuscular HGB Conc 34.3 g/dL (31.8-35.4); Mean Corpuscular Hemoglobin 30.1 pg (27.0-31.2); Mean Corpuscular Volume 87.9 fl (81-99); Mean Platelet Volume 10.7 fl (7.4-10.4); Monocytes # 0.8 K/mm3 (0.1-1.0); Monocytes % 7.5 % (1.7-9.3); Neutrophils # 7.2 K/mm3 (1.8-7.8); Neutrophils % 67.8 % (37.0-80.0); Platelet Count 199 K/mm3 (142-424); Potassium 3.4 mmoL/L (3.5-5.1); Red Blood Count 3.87 M/mm3 (4.20-5.40); Red Cell Distribution Width 13.7 % (11.5-17.5); Sodium 138 mmol/L (136-145); Total Protein,Serum 5.5 g/dl (6.3-8.2); White Blood Count 10.7 K/mm3 (4.8-10.8)
[2021-02-14 08:00] VITALS: BP 146/63; PULSE 84; RESP 18; TEMP 37.2; O2SAT 96
[2021-02-14 08:23] LABS: Thyroid Stimulating Hormone 4.78 uIU/mL (0.465-4.68)
--- NOTE | 2021-02-14 11:43 | P.PN_ITS ---
Internal Medicine - PN: Subj *Date: 02/14/21 *Time: 08:10 Interval history: pt sitting up in bed, states pain has let up a small amount but still does not think she will be able to eat anything. pt states she still is having cramping and tenderness with occ pain in left lower quad. Exam Vital signs and Labs for Last 24 Hours: Temp Pulse Resp BP Pulse Ox 99.0 F 84 18 146/63 H 96 02/14/21 08:00 02/14/21 08:00 02/14/21 08:00 02/14/21 08:00 02/14/21 08:00 Laboratory Results - last 24 hr 02/14/21 07:04: WBC 10.7, RBC 3.87 L, Hgb 11.7 L, Hct 34.0 L, MCV 87.9, MCH 30.1, MCHC 34.3, RDW 13.7, Plt Count 199 D, MPV 10.7 H, Neut % (Auto) 67.8, Lymph % (Auto) 23.0, [place] % (Auto) 7.5, Eos % (Auto) 0.9, Baso % (Auto) 0.7, Neut # (Auto) 7.2, Lymph # (Auto) 2.5, [place] # (Auto) 0.8, Eos # (Auto) 0.1, Baso # (Auto) 0.1 02/14/21 07:04: Sodium 138, Potassium 3.4 L, Chloride 110 H, Carbon Dioxide 24, Anion Gap 7.4, BUN 14 D, Creatinine 0.50 L D, Estimated Creat Clear 77, Estimated GFR 123, Est GFR ( Amer) 148 D, Glucose 96, Calcium 8.3 L, Total Bilirubin 0.5, AST 28 D, ALT 16 D, Alkaline Phosphatase 58, Total Protein 5.5 L, Albumin 2.9 L, Globulin 2.6, Albumin/Globulin Ratio 1.1, TSH 4.78 H I & O for Last 24 hours: Intake & Output 02/11/21 02/12/21 02/13/21 02/14/21 11:59 11:59 11:59 11:59 Intake Total 1820 / 1820 2617 / 2617 Balance 1820 / 1820 2617 / 2617 Weight 200 lb 195 lb 9 oz 199 lb 4 oz Microbiology Reports for the Last 24 Hours: Microbiology 02/12/21 10:16 Blood Blood Culture - Preliminary NO GROWTH AFTER 48 HOURS 02/12/21 10:01 Blood Blood Culture - Preliminary NO GROWTH AFTER 48 HOURS - Constitutional no acute distress, obese - *Routine HEENT Exam Head: Present: normocephalic Eye: Present: PERRL ENT: Present: mucous membranes moist - *Routine Neck Exam Present: supple. Absent: lymphadenopathy - *Routine Respiratory Exam Present: CTA bilaterally - *Routine Cardiovascular Exam Present: RRR - *Routine Abdominal Exam Present: soft, normoactive bowel sounds, tenderness - *Routine Extremities Exam Present: normal capillary refill. Absent: cyanosis, clubbing, edema - *Routine Skin Exam Present: warm. Absent: rash - *Routine Neurological Exam Present: alert, oriented X3 - Routine Psychiatric Exam Present: normal affect Assessment and Plan (1) Obesity (BMI 30.0-34.9) Status: Acute Category: Medical Code(s): E66.9 - Obesity, unspecified (2) Colitis Status: Acute Category: Medical Code(s): K52.9 - Noninfective gastroente ritis and colitis, unspecified (3) Diverticulitis Status: Acute Category: Medical Code(s): K57.92 - Diverticulitis of intestine, part unspecified, without perforation or abscess without bleeding (4) Hypothyroidism (acquired) Status: Acute Category: Medical Code(s): E03.9 - Hypothyroidism, unspecified - Assessment and plan all Dx Assessment and Plan for all problems:: rounded with dr singleton all orders per dr singleton
[2021-02-14 16:00] VITALS: BP 126/92; PULSE 59; RESP 18; TEMP 36.5; O2SAT 100
[2021-02-14 16:59] VITALS: BMI 33.8
[2021-02-14 20:00] VITALS: BP 116/58; PULSE 70; RESP 18; TEMP 36.6; O2SAT 95
--- NOTE | 2021-02-14 20:08 | PC.NURSE ---
PT IS RESTING IN BED. PT STATES SHE HAS FELT BETTER TODAY THAN SHE HAS IN OVER A WEEK. PT STATES SHE REALLY THINKS THE IV STEROIDS HAS HELPED WITH THE DISCOMFORT SHE WAS HAVING IN HER ABDOMEN. DIET HAS BEEN ADVANCED TO LOW FIBER AND PT HAS TOLERATED DIET WELL. LUNG SOUNDS CLEAR. ABDOMEN SOFT/TENDER WITH ACTIVE BOWEL SOUNDS. VSS. AMBULATES TO THE BATHROOM. WILL CONTINUE TO MONITOR.
[2021-02-15 04:00] VITALS: BP 145/70; PULSE 56; RESP 18; TEMP 36.3; O2SAT 97
[2021-02-15 05:00] VITALS: BMI 34.7
[2021-02-15 07:41] LABS: Basophils % 0.2 % (0.1-2.0); Eosinophils % 0.1 % (0.1-12.0); Hematocrit 35.5 % (37.0-47.0); Hemoglobin 12.1 g/dL (12.2-16.2); Lymphocytes # 1.7 K/mm3 (0.7-4.5); Lymphocytes % 13.4 % (10-50); Mean Corpuscular HGB Conc 33.9 g/dL (31.8-35.4); Mean Corpuscular Hemoglobin 30.4 pg (27.0-31.2); Mean Corpuscular Volume 89.6 fl (81-99); Mean Platelet Volume 8.8 fl (7.4-10.4); Monocytes # 0.4 K/mm3 (0.1-1.0); Monocytes % 3.3 % (1.7-9.3); Neutrophils # 10.4 K/mm3 (1.8-7.8); Platelet Count 260 K/mm3 (142-424); Red Blood Count 3.97 M/mm3 (4.20-5.40); Red Cell Distribution Width 13.7 % (11.5-17.5); White Blood Count 12.6 K/mm3 (4.8-10.8)
[2021-02-15 07:55] LABS: Anion Gap 8.5 mEq/L (5-15); Blood Urea Nitrogen 15 mg/dl (7-17); Calcium 8.6 mg/dl (8.4-10.2); Carbon Dioxide 24 mmol/L (22.0-30.0); Chloride 111 mmol/L (98-107); Creatinine Clearance Estimated 78 mL/min (50-200); Estimated Glomerular Filt Rate 123 ml/min (>60); GFR (African American) 148 ML/MIN (>60); Glucose 164 mg/dl (74-100); Potassium 3.5 mmoL/L (3.5-5.1); Sodium 140 mmol/L (136-145)
[2021-02-15 08:00] VITALS: BP 126/89; PULSE 92; RESP 22; TEMP 36.9; O2SAT 96
--- NOTE | 2021-02-15 09:21 | HMH.DCSUM ---
General - General Admission date:: 02/12/21 Discharge date: 02/15/21 HPI HPI: this patient presented to the ed with progressive abd pain and chills - pt with recent dx of diverticulitis and on po abx but has continued to have sx - dec po intake -With a history of abdominal pain, vomiting, dry heaves, diarrhea, fever, chills. Seen in this emergency department on , 2 days ago. Diagnosed with diverticulitis. She has been on Cipro and Flagyl. Fever and chills have resolved, but other symptoms have not improved. Not eating well.pt had ct of abd -Mild diffuse thickening of the colon with a few scattered air-fluid levels consistent with colitis. 2. There is colonic diverticulosis with slight increase in thickening of the sigmoid colon compared to the remaining colon with some stranding of the pericolic fat and a small amount of fluid along the left aspect of the sigmoid colon suggesting associated diverticulitis. No abscess or free air. pt was admitted for ivf and abx with pain meds Hospital Course Hospital Course: 70-year-old female patient presented to the ed with progressive abd pain and chills - pt with recent dx of diverticulitis and on po abx but has continued to have sx - dec po intake -With a history of abdominal pain, vomiting, dry heaves, diarrhea, fever, chills. Seen in this emergency department on , 2 days ago. Diagnosed with diverticulitis. She has been on Cipro and Flagyl. Fever and chills have resolved, but other symptoms have not improved. Not eating well.pt had ct of abd -Mild diffuse thickening of the colon with a few scattered air-fluid levels consistent with colitis. 02/12/2021 abdomen/pelvis CT: FINDINGS: Liver: Normal. No mass. Gallbladder and bile ducts: Normal. No calcified stones. No ductal dilation. Pancreas: Normal. No ductal dilation. Spleen: Normal. No splenomegaly. Adrenal glands: Normal. No mass. Kidneys and ureters: Normal. No hydronephrosis. Stomach and bowel: Diverticulosis and Bowel wall thickening along the rectosigmoid colon. Mild pericolonic inflammatory changes. No evidence of perforation or abscess formation or bleeding. Findings consistent with acute diverticulitis. Bowel wall thickening in descending colon may represent colitis versus decompressed bowel. A few loops of dilated small bowel may represent ileus. No aurelia obstruction.. Appendix: No evidence of appendicitis. Intraperitoneal space: Unremarkable. No free air. No significant fluid collection. Vasculature: Unremarkable. No abdominal aortic aneurysm. Lymph nodes: Small retroperitoneal nodes. Small nodes nodes anterior to the left common iliac artery and vein. Peripancreatic and periportal nodes. Largest node 18 x 11 mm Urinary bladder: Unremarkable as visualized. Reproductive: Surgical resection of the uterus Bones/joints: Unremarkable. No acute fracture. Soft tissues: Unremarkable. IMPRESSION: 1. Diverticulosis and Bowel wall thickening along the rectosigmoid colon. Mild pericolonic inflammatory changes. No evidence of perforation or abscess formation or bleeding. Findings consistent with acute diverticulitis. 2. As an underlying malignancy cannot be entirely excluded, a follow-up examination after a course of treatment is recommended if clinically warranted. 3. Bowel wall thickening in descending colon may represent colitis versus decompressed bowel. 4. A few loops of dilated small bowel may represent ileus. No aurelia obstruction.. Electronically signed by Claudine Strickland MD White blood cell count 12.6, H/H 12.1/35.5 Chemistries unremarkable Urine culture no growth at 24 hours Blood cultures no growth at 48 hours 70-year-old female patient sitting up in bed, reports she is feeling better, denies any abdominal pain, nausea, vomiting and is tolerating a regular diet. Discussed discharge home today she is agreeable to this she
== END 2021-02-15 11:01 | disposition home or self-care (01) | DRG 392 ==
LOC: ER 11:45 → 2ND 02-13 07:24
PROVIDERS: Family Medicine; Nurse Practitioner Family; Admitting Provider Emergency Medicine; Emergency Provider Emergency Medicine; PCP Internal Medicine; Visit Provider Emergency Medicine
DX: K57.32 Diverticulitis of large intestine without perforation or abscess without bleeding (principal); F17.210 Nicotine dependence, cigarettes, uncomplicated; E03.9 Hypothyroidism, unspecified; Z20.822 Contact with and (suspected) exposure to COVID-19; E66.9 Obesity, unspecified; K52.9 Noninfective gastroenteritis and colitis, unspecified; Z68.34 Body mass index [BMI] 34.0-34.9, adult
CPT/HCPCS: 74177; 80048; 80053; 81001; 83605; 84145; 84443; 85025; 85651; 86140; 87040; 87086; 87581; 87633; 87798; 96365; 96367; 96375; 99284; J1956; J2405; Q9967

== ENCOUNTER → 2021-02-24 10:30 | Outpatient (CLI) | payer BC, SELFPAY | PROVIDERS: Visit Provider Internal Medicine Gastroenterology | DX: Z01.812 Encounter for preprocedural laboratory examination (principal); Z20.822 Contact with and (suspected) exposure to COVID-19; Z13.810 Encounter for screening for upper gastrointestinal disorder; Z12.11 Encounter for screening for malignant neoplasm of colon | CPT/HCPCS: U0003 ==

== ENCOUNTER 2021-02-25 10:54 | Day surgery (SDC) | payer BC, SELFPAY ==
[2021-02-24 09:38] VITALS: BMI 34.1
[2021-02-25 11:32] VITALS: BP 132/70; PULSE 78; RESP 18; TEMP 36.3; O2SAT 97
--- NOTE | 2021-02-25 12:25 | HMH.ANESCL ---
[facility] Anesthesia Checklist - Structural Data Admitted From: Home Planned Operative Procedure/s: egd,colonoscopy Consent for Planned Operative Procedure(s) Verified: Yes - Airway Assessment C-Spine Mobility Assessed: Yes TMJ Mobility Assessed: Yes Dentition: Good Dentition - Neurological Assessment Level of Consciousness: Awake, Alert, Appropriate - Anesthesia Plan Anesthesia Risk discussed: Yes Anesthesia Plan: Verified ASA Class: II Anesthesia Type: MAC [facility] History I have reviewed the patient's past medical history: Yes Medical History: Denies:: Cancer, Diabetes Mellitus Type 1, Diabetes Mellitus Type 2, Internal Pacemaker, MRSA, Seizures *Have you ever received a pneumonia vaccine?: Yes *Have you received a flu vaccine this season?: No Other Medical History: Reports: Hypothyroidism Anesthesia experience/problems:: none Laterality Cases: Left: Arthroscopy Knee, Bilateral: Tonsillectomy Other Surgeries: Yes: Cardiac Catheterization, Colonoscopy, Hysterectomy-Total. No: Pacemaker Amputation: No Fractures: No - *Social History Last grade of school completed: Some college Smoking Status: Current every day smoker Tobacco Type: cigarettes # Packs/Day (cigarettes): 1 #Yrs smoked (if former smoker): 40 Alcohol Intake: current Alcohol Intake Frequency:: holidays/special occasions only Substance Use Type: denies use *Occupational Status:: employed Housing: house Household Members: family *Travel in the last 8 weeks: None Family Hx:: Coronary Artery Disease, Diabetes, Hyperlipidemia, Hypertension, Thyroid Disorder, Substance abuse, Alcoholism
[2021-02-25 12:47] VITALS: O2SAT 98
--- NOTE | 2021-02-25 12:55 | P.PCN_ITS ---
[facility] Procedure Note Procedure Note:: Upper Endoscopy Procedure Report: Esophagogastroduodenoscopy with cold biopsies Endoscopost: Pk Stark II, MD Referring Physician: CARLOS Davis Date of Procedure: February 25, 2021 Equipment: Olympus GIF 190 standard upper endoscope Sedation: MAC sedation Indications: Mrs. Pugh is a 70-year-old female with abdominal pain especially in the lower abdomen. She was recently admitted on February 12, 2021. She did have fever and chills. Her white blood cell count was 12.6. She did have a CT scan of the abdomen and pelvis on February 12, 2021 showing diverticulosis with bowel wall thickening along the rectosigmoid with mild pericolonic inflammatory change. She was placed on antibiotics (Cipro and Flagyl). The patient does have loose bowel movements and has had some dark stools ( black chocolate ). The patient does report some bloating, nausea and belching. She has had some early satiety. Her abdominal pain is improved. Procedure: Prior to the procedure, a history and physical exam was performed, and patient's medications and allergies were reviewed. The risks, benefits and alternatives of the sedation and procedure were discussed with the patient. All questions were answered and informed consent was obtained. The patient was brought to the procedure room. Patient identification and proposed procedure were verified by the physician and the nurse. The patient was placed in a left lateral decubitus position and the scope was passed under direct vision. Throughout the procedur e, the patient's blood pressure, pulse, and oxygen saturations were monitored continuously. The upper GI endoscopy was accomplished without difficulty. The patient tolerated the procedure well. Findings: The scope was passed directly into the upper esophagus and advanced to the third portion of the duodenum. The post bulbar duodenum and duodenal bulb were normal with normal mucosa and conniventes. Cold biopsies were taken from the post bulbar duodenum to rule out celiac disease. The scope was withdrawn through a normal duodenal bulb and pylorus into the stomach. There was moderate bile reflux with linear reactive gastropathy of the antrum and body of the stomach. The remainder of the fundus of the stomach was grossly normal. Upon retroflexion there was no hiatal hernia. 2 biopsies were taken in the antrum and along the lesser curvature for histology to rule out gastritis and/or H pylori. The scope was then withdrawn into the esophagus. There was no evidence of reflux esophagitis or Bradshaw's. The remainder of the esophageal mucosa was normal. Impression: 1. Nonerosive GERD 2. Mild to moderate linear reactive gastropathy Plan: I will follow-up the biopsies. I will proceed with diagnostic colonoscopy.
--- NOTE | 2021-02-25 13:14 | P.PCN_ITS ---
[facility] Procedure Note Procedure Note:: Colonoscopy Procedure Report: Colonoscopy with cold snare polypectomy and cold biopsies Endoscopist: Pk Stark II, MD Referring physician: CARLOS Davis Date of Procedure: February 25, 2021 Equipment: Olympus 190 variable stiffness pediatric colonoscope Sedation: MAC sedation Indication: Mrs. Pugh is a 70-year-old female who is here for diagnostic evaluation of her lower abdominal pain and diverticulitis. She was admitted on February 12, 2021 with fever, chills and leukocytosis. Her CAT scan showed bowel wall thickening of the rectosigmoid with pericolonic inflammatory changes. She was placed on antibiotics with Cipro and Flagyl. She was borderline anemic with hemoglobin 12.1 and hematocrit 35.5. She does have loose bowel movements. She reports no rectal bleeding or weight loss. The patient does have bloating and some nausea. She does state that her aunt and first cousin had colon cancer. The patient's last colonoscopy was 20 to 30 years ago (Dr. Tony Peck/colorectal surgery). Procedure: Prior to the procedure, a history and physical exam was performed, and patient's medications and allergies were reviewed. The risks, benefits and alternatives of the sedation and procedure were discussed with the patient. All questions were answered and informed consent was obtained. The patient was brought to the procedure room. Patient identification and proposed procedure were verified by the physician and the nurse. The patient was placed in a left lateral decubitus position and the scope was passed under direct vision. Throughout the procedure, the patient's blood pressure, pulse, and oxygen saturations were monitored continuously. The colonoscopy was accomplished without difficulty. The patient tolerated the procedure well. Findings: On digital rectal examination there was normal rectal tone. There were no external hemorrhoids. The colonoscope was introduced through the anal canal to the rectum and advanced to the cecum. The ileocecal valve and appendiceal orifice were identified. The scope was advanced a short distance into the ileum which appeared grossly normal. The scope was then withdrawn into the colon. There were a total of 10 colon polyps (ascending x4 (4,5,5 and 7 mm), transverse x3 (3, 5 and 8 mm) and sigmoid x3 (4, 4 and 5 mm)) which were all removed via cold snare polypectomy. The remaining cecum, ascending and transverse colon and mucosa were grossly normal and cold biopsies were taken x4 from the right colon to rule out microscopic colitis. There were scattered extensive diverticuli throughout the descending and sigmoid colon (LEFT colon). There was also marked haustral edema and inflammatory change within the sigmoid colon consistent with resolving acute sigmoid diverticulitis. The rectum itself was normal. Upon retroflexion within the rectum there were grade 1-2 internal hemorrhoids. The preparation was excellent throughout with [place] Preparation Score of nine. The cecal time was 17 minutes. Impression: 1. Colonic polyps x10 2. Extensive left-sided diverticulosis with evidence of acute resolving sigmoid diverticulitis 3. Grade 1-2 internal hemorrhoids Plan: I will discuss dietary measures and bulk fiber supplementation on a long-term daily maintenance basis. I will follow up the polyp pathology and recommend repeat screening/surveillance colonoscopy again in 1 to 2 years based upon the number, size and adenomatous polyp histology.
[2021-02-25 13:16] VITALS: BP 101/54; PULSE 75; RESP 18; TEMP 36.1; O2SAT 94
[2021-02-25 13:26] VITALS: BP 104/57; PULSE 63; RESP 18; O2SAT 98
[2021-02-25 13:36] VITALS: BP 132/52; PULSE 63; RESP 18; O2SAT 98
[2021-02-25 13:55] VITALS: BP 142/65; PULSE 63; RESP 18; O2SAT 98
== END 2021-02-25 14:00 | disposition home or self-care (01) ==
PROVIDERS: PCP Nurse Practitioner Family; Visit Provider Internal Medicine Gastroenterology
PROC: 0DJ08ZZ Inspection of Upper Intestinal Tract, Via Natural or Artificial Opening Endoscopic (ICD-10-PCS; CPT 43235; principal; 2021-02-25 12:00)
DX: K63.5 Polyp of colon (principal); K21.9 Gastro-esophageal reflux disease without esophagitis; K31.9 Disease of stomach and duodenum, unspecified; K57.30 Diverticulosis of large intestine without perforation or abscess without bleeding; K57.32 Diverticulitis of large intestine without perforation or abscess without bleeding; K64.0 First degree hemorrhoids; E03.9 Hypothyroidism, unspecified; Z72.0 Tobacco use; Z83.3 Family history of diabetes mellitus; Z82.49 Family history of ischemic heart disease and other diseases of the circulatory system; Z83.438 Family history of other disorder of lipoprotein metabolism and other lipidemia; Z81.1 Family history of alcohol abuse and dependence
CPT/HCPCS: 43239; 45385; 45380

== ENCOUNTER → 2021-03-01 09:51 | Outpatient (CLI) | payer BC, SELFPAY ==
--- NOTE | 2021-03-01 09:51 | MM_ITS ---
PROCEDURE INFORMATION: Exam: MG Screening 3D Mammography Exam date and time: 03/01/2021 9:51 AM Age: 71 years old Clinical indication: screening mammogram TECHNIQUE: Imaging protocol: Screening tomosynthesis and 2D mammography including computer-aided detection (CAD) when performed. COMPARISON: [facility] MM Dig screening mamm BI w/CAD 06/03/2018 10:32 AM FINDINGS: MAMMOGRAPHY: Breast composition: There are scattered areas of fibroglandular density. Mass: None. Architectural distortion: No new or suspicious architectural distortion. Calcifications: No new or suspicious calcifications are present Asymmetric density: No new or suspicious asymmetric density is present Skin thickening: None. Axillary adenopathy: None. IMPRESSION: No mammographic evidence of malignancy. Recommend annual screening mammography unless otherwise clinically indicated. ASSESSMENT: BI-RADS category 1: Negative
== END ==
PROVIDERS: PCP Nurse Practitioner Family; Visit Provider Nurse Practitioner Family
DX: Z12.31 Encounter for screening mammogram for malignant neoplasm of breast (principal)
CPT/HCPCS: 77063; 77067

== ENCOUNTER → 2021-09-15 19:56 | Outpatient (CLI) | payer BC, SELFPAY ==
[2021-09-15 19:57] LABS: Adenovirus,PCR Not Detected (NotDetected); Bordetella Pertussis Not Detected (NotDetected); Chlamydophila Pneumoniae, PCR Not Detected (NotDetected); Coronavirus 19, PCR Not Detected (NotDetected); Coronavirus 229E Not Detected (NotDetected); Coronavirus NL63 Not Detected (NotDetected); Coronavirus OC43 Not Detected (NotDetected); Coronovirus HKU1,PCR Not Detected (NotDetected); Human Metapneumovirus Not Detected (NotDetected); Influenza A, PCR Not Detected (NotDetected); Influenza AH1, 2009 Not Detected (NotDetected); Influenza AH1, PCR Not Detected (NotDetected); Influenza AH3,PCR Not Detected (NotDetected); Influenza B, PCR Not Detected (NotDetected); Mycoplasma Pneumoniae, PCR Not Detected (NotDetected); Parainfluenza 1, PCR Not Detected (NotDetected); Parainfluenza 2, PCR Not Detected (NotDetected); Parainfluenza 3, PCR Not Detected (NotDetected); Respiratory Syncytial Virus Not Detected (NotDetected); Rhinovirus/Enterovirus Not Detected (NotDetected)
[2021-09-15 22:51] LABS: Parainfluenza 4, PCR Detected (NotDetected)
== END ==
LOC: LAB.DROPOF 19:56
PROVIDERS: Visit Provider Nurse Practitioner Family
DX: Z20.822 Contact with and (suspected) exposure to COVID-19 (principal); J11.1 Influenza due to unidentified influenza virus with other respiratory manifestations
CPT/HCPCS: 87581; 87632; 87798; C9803; U0003; U0005

== ENCOUNTER → 2022-01-09 16:00 | Outpatient (CLI) | payer BC, SELFPAY ==
[2022-01-09 18:42] LABS: Basophils # 0.2 K/mm3 (0-0.2); Chloride 107 mmol/L (98-107); Eosinophils # 0.1 K/mm3 (0.0-0.4); Eosinophils % 1.4 % (0.1-12.0); Hematocrit 49.3 % (37.0-47.0); Hemoglobin 16.5 g/dL (12.2-16.2); Lymphocytes # 3.4 K/mm3 (0.7-4.5); Lymphocytes % 41.6 % (10-50); Mean Corpuscular HGB Conc 33.5 g/dL (31.8-35.4); Mean Corpuscular Hemoglobin 31.7 pg (27.0-31.2); Mean Corpuscular Volume 94.5 fl (81-99); Mean Platelet Volume 10.2 fl (7.4-10.4); Monocytes # 0.4 K/mm3 (0.1-1.0); Neutrophils # 4.1 K/mm3 (1.8-7.8); Neutrophils % 50.1 % (37.0-80.0); Platelet Count 301 K/mm3 (142-424); Potassium 4.1 mmoL/L (3.5-5.1); Red Blood Count 5.21 M/mm3 (4.20-5.40); Red Cell Distribution Width 13.6 % (11.5-17.5); Sodium 139 mmol/L (136-145); White Blood Count 8.3 K/mm3 (4.8-10.8)
[2022-01-09 18:45] LABS: Alanine Aminotransferase 28 U/L (12-78); Albumin Level 4.2 g/dl (3.5-5.0); Albumin/Globulin Ratio 1.9 (1.1-1.8); Alkaline Phosphatase 94 U/L (38-126); Anion Gap 11.1 mEq/L (5-15); Aspartate Amino Transferase 32 U/L (14-36); Bilirubin,Total 0.7 mg/dl (0.2-1.3); Blood Urea Nitrogen 18 mg/dl (7-17); Carbon Dioxide 25 mmol/L (22.0-30.0); Cholesterol 198 mg/dl (140-200); Estimated Glomerular Filt Rate 122 ml/min (>60); GFR (African American) 148 ML/MIN (>60); Globulin 2.2 g/dL (1.3-3.2); Total Protein,Serum 6.4 g/dl (6.3-8.2); Triglycerides 145 mg/dl (30-150); VLDL Cholesterol 29 mg/dL (0-40)
[2022-01-09 18:46] LABS: Calcium 9.1 mg/dl (8.4-10.2); Chol/HDL Ratio 4.3 (1-3.5); Glucose 105 mg/dl (74-100); HDL Cholesterol 46 mg/dl (40-60)
[2022-01-09 18:57] LABS: Direct LDL Cholesterol 131.63 mg/dL (100-129)
[2022-01-09 19:04] LABS: T4 (Thyroxine) 17.8 ug/dl (5.53-11.0)
[2022-01-09 19:13] LABS: 25-OH Vitamin D, Total < 12.8 ng/mL (30-100)
[2022-01-09 19:17] LABS: Thyroid Stimulating Hormone 2.07 uIU/mL (0.465-4.68)
== END ==
LOC: LAB.DROPOF 01-10 23:53
PROVIDERS: Visit Provider Nurse Practitioner Family
DX: Z00.00 Encounter for general adult medical examination without abnormal findings (principal); E55.9 Vitamin D deficiency, unspecified; Z79.899 Other long term (current) drug therapy
CPT/HCPCS: 80053; 80061; 82306; 84436; 84443; 85025

== ENCOUNTER → 2022-01-13 09:39 | Outpatient (CLI) | payer BC, SELFPAY ==
--- NOTE | 2022-01-13 10:30 | PC.NURSE ---
PFT and 6 Minute walk test completed without incident. Albuterol 0.083% given HHN, per written protocol, Pt tolerated well.
== END ==
LOC: RT 09:40
PROVIDERS: PCP Nurse Practitioner Family; Visit Provider Nurse Practitioner Family
DX: R06.02 Shortness of breath (principal)
CPT/HCPCS: 94060; 94618; 94726; 94729

== ENCOUNTER → 2022-04-21 09:57 | Outpatient (CLI) | payer BC, SELFPAY ==
--- NOTE | 2022-04-21 09:57 | CT_ITS ---
FINAL REPORT TECHNIQUE: Axial images were obtained from the lung apex to the mid abdomen by computed tomography. Low-dose protocol was utilized. CLINICAL HISTORY: CURRENT SMOKER, LUNG CANCER SCREENING FINDINGS: CHEST CT LOW DOSE CTDI vol (mGy): 2.90 DLP (mGy-cm): 108.90 There is no axillary adenopathy. There is no hilar or mediastinal adenopathy. The heart is normal in size. There is no pericardial or pleural effusion. There is mild scarring and mild emphysema. There are several calcified granulomas. There is a 3 mm nodule in the lateral left lower lobe both seen on image 58. Limited images of the upper abdomen are unremarkable. IMPRESSION: Lower lobe nodule measures 3 mm. Lung RADS category 2. Recommend 12 month follow-up low-dose chest CT. Reviewed, Interpreted and Dictated by Manoj Mesa III, MD Transcribed by Nydia Ramirez Authenticated and [facility]
== END ==
PROVIDERS: PCP Nurse Practitioner Family; Visit Provider Internal Medicine Pulmonary Disease
DX: Z87.891 Personal history of nicotine dependence (principal); Z12.2 Encounter for screening for malignant neoplasm of respiratory organs
CPT/HCPCS: 71271

== ENCOUNTER 2022-07-13 12:51 | Emergency (ER) | payer BC, SELFPAY ==
[2022-07-13 12:52] VITALS: BP 130/53; PULSE 86; RESP 18; TEMP 37.2; O2SAT 95; BMI 34.7
--- NOTE | 2022-07-13 14:03 | EXP.UTC ---
Discharge Plan Disposition Patient Disposition: Home, Self-Care Condition: Good Prescriptions Prescriptions: New azithromycin [Zithromax] 250 mg tablet 250 mg PO UD DOSE PK Qty: 6 0RF Rx Instructions: Take two (2) tablets today, then one (1) tablet days #2 thru #5 benzonatate [benzonatate] 100 mg capsule 100 mg PO TIDP PRN (Reason: Cough) Qty: 30 0RF methylprednisolone 4 mg Tablets,Dose Pack 4 mg PO DIRECTED Qty: 21 0RF ondansetron 4 mg Tablet,Disintegrating 4 mg PO Q8H PRN (Reason: Nausea) Qty: 20 0RF No Action Anoro Ellipta 62.5-25 mcg/actuation blister with device 1 inh IH DAILY 90 Days Qty: 180 3RF fluticasone propionate 50 mcg/actuation spray,suspension 1 spray INTRANASAL DAILY 90 Days Qty: 15.8 3RF Rx Instructions: administer into each nostril albuterol sulfate 90 mcg/actuation HFA aerosol inhaler 2 inh INHALATION Q6H PRN (Reason: shortness of breath or wheezing) 90 Days Qty: 8.5 3RF levothyroxine 125 mcg tablet See Rx Instructions .ROUTE .COMPLEX Qty: 90 0RF Dose Instruction: Take 1 tablet by mouth once daily Rx Instructions: Take 1 tablet by mouth once daily Referrals Follow up/Referrals: Mich Dodge MD [Primary Care Provider] - See instructions Clinical Impressions Clinical Impression: COPD with acute exacerbation, Viral syndrome Instructions Patient Instructions: DI for Chronic Obstructive Pulmonary Disease, COPD: When to Call for Help, Coronavirus Disease 2019, Preventing the Spread of Coronavirus Discharge Instructions Discharge ED Provider: Jose Carlos Otriz [facility] General Stated complaint: SOA, Cough, vomitting, chills Mode of Arrival: Ambulatory Source of Information: Patient Limitations: No Limitations Time Seen by Provider: 07/13/22 14:03 Description of Symptoms (Recalled from Triage Doc. by RN): HEADACHE, CHILLS, VOMITING HEENT Symptoms (Recalled from RN notes): Yes Resp Symptoms (Recalled from RN notes): Yes Skin Symptoms (Recalled from RN notes): No MS Symptoms (Recalled from RN notes): No Functional Status (Recalled from RN notes): NA History of Present Illness Provider Complaint: She states that for the past 3 days she has had a worsening cough and chest congestion. Related Data Previous Rx's Medication Instructions Recorded albuterol sulfate 90 mcg/actuation 2 inh inhalation Q6H PRN shortness 04/24/22 aerosol inhaler of breath or wheezing 90 days #8.5 grams fluticasone propionate 50 1 spray intranasal DAILY 90 days 04/24/22 mcg/actuation nasal #15.8 mL spray,suspension umeclidinium 62.5 mcg-vilanterol 1 inh inhalation DAILY 90 days 04/24/22 25 mcg/actuation powdr for #180 ea inhalation (Anoro Ellipta) levothyroxine 125 mcg tablet See Rx Instructions .Route 05/11/22 .COMPLEX #90 tabs azithromycin 250 mg tablet 250 mg PO UD DOSE PK #6 tabs 07/13/22 (Zithromax) benzonatate 100 mg capsule 100 mg PO TIDP PRN Cough #30 caps 07/13/22 methylprednisolone 4 mg tablets in 4 mg PO DIRECTED #21 tabs 07/13/22 a dose pack ondansetron 4 mg disintegrating 4 mg PO Q8H PRN Nausea #20 tabs 07/13/22 tablet Allergies Allergy/AdvReac Type Severity Reaction Status Date / Time No Known Allergies Allergy Verified 04/24/22 13:35 Worker's Comp Is this a Worker's Comp case?: No [facility] Medical History Hypothyroidism (acquired) Social History Smoking Status: Current every day smoker tobacco type: cigarettes packs per day: 1 second hand exposure: Yes alcohol intake: current substance use type: denies use current occupational status: employed Travel in the last 8 weeks: None household members: family housing: house 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
[2022-07-13 14:26] VITALS: BP 130/53; PULSE 86; RESP 20; TEMP 37.2; O2SAT 95
== END 2022-07-13 14:28 | disposition home or self-care (01) ==
PROVIDERS: Emergency Provider Nurse Practitioner Family; PCP Emergency Medicine
DX: J44.1 Chronic obstructive pulmonary disease with (acute) exacerbation (principal); B34.9 Viral infection, unspecified
CPT/HCPCS: 99212; C9803; G0463; U0003; U0005

== ENCOUNTER 2022-08-29 16:26 | Emergency (ER) | payer BC, SELFPAY ==
--- NOTE | 2022-08-29 17:05 | XR_ITS ---
PROCEDURE INFORMATION: Exam: XR Chest Exam date and time: 08/29/2022 5:08 PM Age: 72 years old Clinical indication: Cough TECHNIQUE: Imaging protocol: Radiologic exam of the chest. Views: 2 views. COMPARISON: CR XR CHEST PORTABLE 08/06/2020 2:00 PM FINDINGS: Lungs: There is a small discoid shaped density left mid lung zone that has developed likely secondary to subsegmental atelectasis. There is hazy granular opacification lower lung zones with peribronchial cuffing difficult to assess due to prominent breast attenuation artifact. Findings may indicate ongoing airway disease (bronchitis/bronchiolitis). Upper lung zones are clear. Pleural spaces: Unremarkable. No pleural effusion. No pneumothorax. Heart/Mediastinum: Unremarkable. No cardiomegaly. Bones/joints: Unremarkable. IMPRESSION: 1. Interval development oasis subsegmental atelectasis left mid lung zone. 2. Findings inconclusive for active airway disease lower lobes as discussed above. If further evaluation is felt clinically warranted CT chest recommended.
--- NOTE | 2022-08-29 17:05 | EXP.UTC ---
Discharge Plan Disposition Patient Disposition: Home, Self-Care Condition: Good Prescriptions Prescriptions: New prednisone 10 mg tablet 10 mg PO DIRECTED 9 Days Qty: 21 0RF Rx Instructions: Take 4 tablets daily for 3 days, then take 2 tablets daily for 3 days, then take 1 tablet daily for 3 days, then stop. benzonatate [benzonatate] 100 mg capsule 100 mg PO TIDP PRN (Reason: Cough) Qty: 30 0RF amoxicillin-pot clavulanate 500-125 mg tablet 1 tab PO BID Qty: 20 0RF promethazine-DM 6.25-15 mg/5 mL Syrup 5 ml PO Q6H PRN (Reason: Cough) Qty: 240 0RF No Action fluticasone propionate 50 mcg/actuation spray,suspension 1 spray INTRANASAL DAILY 90 Days Qty: 15.8 3RF Rx Instructions: administer into each nostril albuterol sulfate 90 mcg/actuation HFA aerosol inhaler 2 inh INHALATION Q6H PRN (Reason: shortness of breath or wheezing) 90 Days Qty: 8.5 3RF levothyroxine 125 mcg tablet See Rx Instructions .ROUTE .COMPLEX Qty: 90 0RF Dose Instruction: Take 1 tablet by mouth once daily Rx Instructions: Take 1 tablet by mouth once daily Stiolto Respimat 2.5-2.5 mcg/actuation mist 2 puff inhalation DAILY 90 Days Qty: 4 3RF azithromycin [Zithromax] 250 mg tablet 250 mg PO UD DOSE PK Qty: 6 0RF Rx Instructions: Take two (2) tablets today, then one (1) tablet days #2 thru #5 benzonatate [benzonatate] 100 mg capsule 100 mg PO TIDP PRN (Reason: Cough) Qty: 30 0RF methylprednisolone 4 mg Tablets,Dose Pack 4 mg PO DIRECTED Qty: 21 0RF ondansetron 4 mg Tablet,Disintegrating 4 mg PO Q8H PRN (Reason: Nausea) Qty: 20 0RF Referrals Follow up/Referrals: Mich Dodge MD [Primary Care Provider] - See instructions Activity Restrictions/Add. Instructions Additional Instructions/Restrictions: Drink plenty of fluids. Take tylenol or ibuprofen for pain or fever. Take the medications as directed. Follow up with your regular doctor. GO TO THE ER FOR ANY WORSENING SYMPTOMS Don't start the oral steroids until tomorrow, since you had the shot here today. The cough medication (promethazine dm) will make you drowsy, so don't drive or operate heavy machinery after taking it. Clinical Impressions Clinical Impression: Acute bronchitis Instructions Patient Instructions: Acute Bronchitis, DI for Acute Bronchitis Discharge ED Provider: Jose Carlos Ortiz [facility] HPI General Stated complaint: soa, cough, congestion, fever/chills, sore throat Time Seen by Provider: 08/29/22 17:05 History of Present Illness Provider Complaint: She states that for the past 3 weeks she has been having worsening chest and sinus congestion. She denies fever. Related Data Previous Rx's Medication Instructions Recorded albuterol sulfate 90 mcg/actuation 2 inh inhalation Q6H PRN shortness 04/24/22 aerosol inhaler of breath or wheezing 90 days #8.5 grams fluticasone propionate 50 1 spray intranasal DAILY 90 days 04/24/22 mcg/actuation nasal #15.8 mL spray,suspension levothyroxine 125 mcg tablet See Rx Instructions .Route 05/11/22 .COMPLEX #90 tabs azithromycin 250 mg tablet 250 mg PO UD DOSE PK #6 tabs 07/13/22 (Zithromax) benzonatate 100 mg capsule 100 mg PO TIDP PRN Cough #30 caps 07/13/22 methylprednisolone 4 mg tablets in 4 mg PO DIRECTED #21 tabs 07/13/22 a dose pack ondansetron 4 mg disintegrating 4 mg PO Q8H PRN Nausea #20 tabs 07/13/22 tablet tiotropium 2.5 mcg-olodaterol 2.5 2 puff inhalation DAILY 90 days #4 08/09/22 mcg/actuation mist for inhalation grams (Stiolto Respimat) amoxicillin 500 mg-potassium 1 tab PO BID #20 tabs 08/29/22 clavulanate 125 mg tablet benzonatate 100 mg capsule 100 mg PO TIDP PRN Cough #30 caps 08/29/22 prednisone 10 mg tablet 10 mg PO DIRECTED 9 days #21 08/29/22 tabs promethazine-DM 6.25 mg-15 mg/5 mL 5 ml PO Q6H PRN Cough #240 mL 08/29/22 oral syrup Allergies Allergy/AdvReac Typ
[2022-08-29 17:10] VITALS: BP 133/88; PULSE 86; RESP 18; TEMP 36.8; O2SAT 99; BMI 34.7
[2022-08-29 18:00] VITALS: BP 133/88; PULSE 86; RESP 18; TEMP 36.8
[2022-08-29 18:10] LABS: Adenovirus,PCR Not Detected (NotDetected); Bordetella Pertussis Not Detected (NotDetected); Chlamydophila Pneumoniae, PCR Not Detected (NotDetected); Coronavirus 19, PCR Not Detected (NotDetected); Coronavirus 229E Not Detected (NotDetected); Coronavirus NL63 Not Detected (NotDetected); Coronavirus OC43 Not Detected (NotDetected); Coronovirus HKU1,PCR Not Detected (NotDetected); Human Metapneumovirus Not Detected (NotDetected); Influenza A, PCR Not Detected (NotDetected); Influenza AH1, 2009 Not Detected (NotDetected); Influenza AH1, PCR Not Detected (NotDetected); Influenza AH3,PCR Not Detected (NotDetected); Influenza B, PCR Not Detected (NotDetected); Mycoplasma Pneumoniae, PCR Not Detected (NotDetected); Parainfluenza 1, PCR Not Detected (NotDetected); Parainfluenza 2, PCR Not Detected (NotDetected); Parainfluenza 3, PCR Not Detected (NotDetected); Parainfluenza 4, PCR Not Detected (NotDetected); Respiratory Syncytial Virus Not Detected (NotDetected); Rhinovirus/Enterovirus Not Detected (NotDetected)
== END 2022-08-29 18:07 | disposition home or self-care (01) ==
PROVIDERS: Emergency Provider Nurse Practitioner Family; PCP Emergency Medicine
DX: J20.9 Acute bronchitis, unspecified (principal)
CPT/HCPCS: 71046; 87581; 87632; 87798; 99212; C9803; G0463; J0696; U0003; U0005

== ENCOUNTER 2022-08-30 14:34 | Emergency (ER) | payer BC, SELFPAY ==
--- NOTE | 2022-08-30 14:26 | ECG_ITS ---
APPROVED REPORT Exam: Resting ECG HR:99 bpm ECG Measurements Heart Rate 99 AXES WV 156 P 72 QRSd 104 QRS 81 QT 350 T 74 QTc 407 Conclusion SINUS RHYTHM MODERATE ST DEPRESSION [0.05+ mV ST DEPRESSION] ABNORMAL ECG UNCONFIRMED REPORT Electronically signed by : Amilcar Tripathi MD 08/31/2022 21:17:12
[2022-08-30 14:34] VITALS: BP 133/64; PULSE 100; RESP 18; TEMP 36.7; O2SAT 96; BMI 34.7
--- NOTE | 2022-08-30 14:41 | HMH.EDGENADL ---
Discharge Plan Disposition Patient Disposition: Home, Self-Care Condition: Good Prescriptions Prescriptions: New doxycycline hyclate [Vibramycin] 100 mg capsule 100 mg PO BID Qty: 20 0RF No Action fluticasone propionate 50 mcg/actuation spray,suspension 1 spray INTRANASAL DAILY 90 Days Qty: 15.8 3RF Rx Instructions: administer into each nostril albuterol sulfate 90 mcg/actuation HFA aerosol inhaler 2 inh INHALATION Q6H PRN (Reason: shortness of breath or wheezing) 90 Days Qty: 8.5 3RF levothyroxine 125 mcg tablet See Rx Instructions .ROUTE .COMPLEX Qty: 90 0RF Dose Instruction: Take 1 tablet by mouth once daily Rx Instructions: Take 1 tablet by mouth once daily Stiolto Respimat 2.5-2.5 mcg/actuation mist 2 puff inhalation DAILY 90 Days Qty: 4 3RF azithromycin [Zithromax] 250 mg tablet 250 mg PO UD DOSE PK Qty: 6 0RF Rx Instructions: Take two (2) tablets today, then one (1) tablet days #2 thru #5 benzonatate [benzonatate] 100 mg capsule 100 mg PO TIDP PRN (Reason: Cough) Qty: 30 0RF methylprednisolone 4 mg Tablets,Dose Pack 4 mg PO DIRECTED Qty: 21 0RF ondansetron 4 mg Tablet,Disintegrating 4 mg PO Q8H PRN (Reason: Nausea) Qty: 20 0RF prednisone 10 mg tablet 10 mg PO DIRECTED 9 Days Qty: 21 0RF Rx Instructions: Take 4 tablets daily for 3 days, then take 2 tablets daily for 3 days, then take 1 tablet daily for 3 days, then stop. benzonatate [benzonatate] 100 mg capsule 100 mg PO TIDP PRN (Reason: Cough) Qty: 30 0RF amoxicillin-pot clavulanate 500-125 mg tablet 1 tab PO BID Qty: 20 0RF promethazine-DM 6.25-15 mg/5 mL Syrup 5 ml PO Q6H PRN (Reason: Cough) Qty: 240 0RF Referrals Follow up/Referrals: Mich Dodge MD [Primary Care Provider] - See instructions Activity Restrictions/Add. Instructions Additional Instructions/Restrictions: Stop taking Augmentin. Do not take Augmentin, amoxicillin, or any other penicillins in the future. Start taking doxycycline. You may continue taking prednisone. Follow-up with your primary care provider, call for appointment. Clinical Impressions Clinical Impression: Acute allergic reaction Discharge ED Provider: Mansoor Romero General Adult HPI General Chief complaint: Shortness of Breath/Dyspnea Stated complaint: allergic reation Time Seen by Provider: 08/30/22 15:15 Mode of Arrival: EMS Limitations: No Limitations Description of Symptoms (Recalled from ER Triage Doc. by RN): PT REPORTS SHORTNESS OF BREATH AND CHEST HEAVINESS AFTER TAKING AUGMENTIN AND PREDNISONE. PT BROUGHTIN VIA EMS History of Present Illness HPI narrative: Patient is brought in by ambulance. She says that she took new prescriptions for Augmentin and prednisone and afterwards began feeling like she was having some sort of allergic reaction. She got a headache first. Then her body felt like it was burning up all over. She did not see any specific rash or hives. She had shortness of breath and heaviness in her chest. She was given Benadryl during transport. States that she feels 100% better now than she did. She says that she was seen in the urgent treatment center yesterday for respiratory infection symptoms. She had a chest x-ray done. She says that they did a nasal swab as well but does not know any test results from that. No prior history of allergic reactions. She has had penicillin in the past. Related Data Previous Rx's Medication Instructions Recorded albuterol sulfate 90 mcg/actuation 2 inh inhalation Q6H PRN shortness 04/24/22 aerosol inhaler of breath or wheezing 90 days #8.5 grams fluticasone propionate 50 1 spray intranasal DAILY 90 days 04/24/22 mcg/actuation nasal #15.8 mL spray,suspension levothyroxine 125 mcg tablet See Rx Instructions .Route 05/11/22 .COMPLEX #90 tabs azithromycin 250 mg tablet 250 mg PO UD DOSE PK #6 tabs 07/13/22 (Zithromax) benzonatate
[2022-08-30 15:00] VITALS: BP 141/70; PULSE 89; O2SAT 94
--- NOTE | 2022-08-30 15:03 | XR_ITS ---
FINAL REPORT CLINICAL HISTORY: SHORTNESS OF BREATH FINDINGS: PORTABLE CHEST The heart is normal in size. The mediastinum is unremarkable. There are some mild chronic changes at the lung bases. There is no pneumothorax. IMPRESSION: No acute process. Reviewed, Interpreted and Dictated by Joaquim Peres MD Transcribed by Tatum Saravia Authenticated and . [facility]
--- NOTE | 2022-08-30 15:09 | PC.NURSE ---
XR AT BEDSIDE
[2022-08-30 15:16] LABS: Chloride 104 mmol/L (98-107); Potassium 3.7 mmoL/L (3.5-5.1); Sodium 145 mmol/L (136-145)
--- NOTE | 2022-08-30 15:17 | PC.NURSE ---
DR. BOLIVAR AT BEDSIDE
[2022-08-30 15:19] LABS: Anion Gap 15.7 mEq/L (5-15); Blood Urea Nitrogen 20 mg/dl (7-17); Calcium 10.1 mg/dl (8.4-10.2); Carbon Dioxide 29 mmol/L (22.0-30.0); Creatinine Clearance Estimated 76 mL/min (50-200); Estimated Glomerular Filt Rate 99 ml/min (>60); GFR (African American) 120 ML/MIN (>60); Glucose 209 mg/dl (74-100)
[2022-08-30 15:27] LABS: Basophils % 0.2 % (0.1-2.0); Eosinophils # 0.1 K/mm3 (0.0-0.4); Eosinophils % 0.4 % (0.1-12.0); Hematocrit 45.8 % (37.0-47.0); Hemoglobin 14.9 g/dL (12.2-16.2); Lymphocytes # 1.8 K/mm3 (0.7-4.5); Lymphocytes % 11.6 % (10-50); Mean Corpuscular HGB Conc 32.6 g/dL (31.8-35.4); Mean Corpuscular Hemoglobin 30.5 pg (27.0-31.2); Mean Corpuscular Volume 93.4 fl (81-99); Mean Platelet Volume 10.8 fl (7.4-10.4); Monocytes # 0.6 K/mm3 (0.1-1.0); Monocytes % 3.8 % (1.7-9.3); Neutrophils # 12.7 K/mm3 (1.8-7.8); Neutrophils % 83.9 % (37.0-80.0); Platelet Count 423 K/mm3 (142-424); Red Cell Distribution Width 14.1 % (11.5-17.5); White Blood Count 15.1 K/mm3 (4.8-10.8)
[2022-08-30 15:29] LABS: MANUAL DIFFERENTIAL MANUAL DIFFERENTIAL (MANUAL DIFF)
[2022-08-30 15:38] LABS: Troponin I 0.01 ng/ml (0.00-0.034)
[2022-08-30 15:45] VITALS: BP 141/70; PULSE 86; O2SAT 92
[2022-08-30 15:52] LABS: Lymphocytes % 16 % (10-50); Monocytes % 1 % (2-9); Neutrophils % 83 % (42-76); Platelet Estimate Normal; RBC Morphology Normal; Total Cells Counted 100
--- NOTE | 2022-08-30 16:25 | PC.NURSE ---
rounded on pt at this time, at bedside. no needs voiced
[2022-08-30 16:30] VITALS: BP 135/72; PULSE 78; O2SAT 93
[2022-08-30 16:58] VITALS: BP 110/55; PULSE 72; O2SAT 96
--- NOTE | 2022-08-30 17:15 | PC.NURSE ---
Pt came to door asking to have his IV taken out and he wants to go home, states that he feels better and that he s just sleepy. Pt thanks us and states he is fine at this time. Pt is A&O x4 at this time. Denies any issues at this time. at for reassessment. PT wanting to sit in the chair and able to get out of bed without assistance into the chair. Pt is on the phone with his sister to let her know he is ready to go home.
[2022-08-30 19:31] LABS: Troponin I 0.02 ng/ml (0.00-0.034)
--- NOTE | 2022-08-30 19:56 | PC.NURSE ---
MD speaking with pt at this time
[2022-08-30 20:19] VITALS: BP 135/79; PULSE 76; RESP 17; TEMP 36.8; O2SAT 97
== END 2022-08-30 20:28 | disposition home or self-care (01) ==
PROVIDERS: Emergency Provider Emergency Medicine; PCP Emergency Medicine
DX: T78.40XA Allergy, unspecified, initial encounter (principal); R07.9 Chest pain, unspecified; J06.9 Acute upper respiratory infection, unspecified; R05.9 Cough, unspecified; R11.0 Nausea; R51.9 Headache, unspecified; E03.9 Hypothyroidism, unspecified; F17.210 Nicotine dependence, cigarettes, uncomplicated; Z79.51 Long term (current) use of inhaled steroids; Z79.52 Long term (current) use of systemic steroids; Z79.899 Other long term (current) drug therapy
CPT/HCPCS: 36415; 71045; 80048; 84484; 85007; 85025; 93005; 99284

== ENCOUNTER → 2022-12-19 09:05 | Outpatient (CLI) | payer BC, SELFPAY ==
[2022-12-19 10:26] LABS: Free T4 (Free Thyroxine) 1.97 ng/dl (0.78-2.19)
== END ==
LOC: LAB 09:06
PROVIDERS: PCP Emergency Medicine; Visit Provider Emergency Medicine
DX: E03.9 Hypothyroidism, unspecified (principal)
CPT/HCPCS: 36415; 84439; 84443

== ENCOUNTER 2023-01-12 15:53 | Emergency (ER) | payer BC, SELFPAY ==
[2023-01-12 15:55] VITALS: BP 121/70; PULSE 93; RESP 21; TEMP 36.9; O2SAT 96; BMI 28.6
--- NOTE | 2023-01-12 16:13 | EXP.UTC ---
Discharge Plan Disposition Patient Disposition: Home, Self-Care Condition: Good Prescriptions Prescriptions: New prednisone 10 mg tablet 10 mg PO BID 5 Days Qty: 10 0RF azithromycin [Zithromax Z-José] 250 mg tablet See Rx Instructions .ROUTE .COMPLEX 5 Days Qty: 6 0RF Rx Instructions: For 250 mg dose pack: take 500 mg today (day 1), then 250 mg for 4 days (days 2-5) benzonatate 100 mg capsule 100 mg PO TID PRN (Reason: cough) Qty: 30 0RF No Action levothyroxine 125 mcg tablet 125 mcg PO DAILY Referrals Follow up/Referrals: Mich Dodge MD [Primary Care Provider] - See instructions Activity Restrictions/Add. Instructions Additional Instructions/Restrictions: *Monitor Temp, Over the counter Motrin or Tylenol as directed/as needed Tylenol every 4 hours and Motrin every 6 hours (as long as your family doctor has told you that you can take it) for fever or pain. and straight to ER if unable to lower temp less than 101.0 after medication given *Warm salt water gargles may help to soothe the throat *Throat Lozenges? *Warm fluids like tea with honey may help to soothe the throat? *Sleep elevated *Humidifier/Vaporizer Take medication as prescribed Your throat swab was sent for culture. Those results are typically sent to your primary care. Be sure to follow up in 2-3 days with your family doctor/primary care physician if no improvement so they can review those result and treat if necessary. If you don?t have a primary care doctor, I recommend you get one but in the mean time, you will have to return to a walk in clinic Follow up IMMEDIATELY for new or worsening symptoms or no Noticeable improvement over the next 48-72 hours. 911 for difficulty breathing or swallowing Clinical Impressions Clinical Impression: URI (upper respiratory infection) Qualifiers: URI type: unspecified URI Qualified Code(s): J06.9 - Acute upper respiratory infection, unspecified Instructions Patient Instructions: Sore Throat, Cough, DI for Strep Throat Discharge ED Provider: Kath Rosen [facility] HPI General Stated complaint: chills,SOB,ORTIZ Congestion cough Mode of Arrival: Ambulatory Source of Information: Patient Limitations: No Limitations Time Seen by Provider: 01/12/23 16:13 Description of Symptoms (Recalled from Triage Doc. by RN): PATIENT C/O COUGH, SOA, BODY ACHES, CHILLS, CONGESTION, AND RUNNY NOSE THAT STARTED LAST NIGHT HEENT Symptoms (Recalled from RN notes): Yes Resp Symptoms (Recalled from RN notes): Yes Skin Symptoms (Recalled from RN notes): No MS Symptoms (Recalled from RN notes): No Functional Status (Recalled from RN notes): WNL History of Present Illness Provider Complaint: Patient states that last night she started feeling bad States that she started with bad cough that at times made a whooping sound , cough, body aches, chills, nasal congestion and runny nose States that she has continued to feel worse today and cough was getting worse so she came in Related Data Home Medications Medication Instructions Recorded Confirmed levothyroxine 125 mcg tablet 125 mcg PO DAILY THYROID 01/12/23 01/12/23 Previous Rx's Medication Instructions Recorded azithromycin 250 mg tablet See Rx Instructions PO .COMPLEX 5 01/12/23 (Zithromax Z-José) days #6 tabs benzonatate 100 mg capsule 100 mg PO TID PRN cough #30 caps 01/12/23 prednisone 10 mg tablet 10 mg PO BID 5 days #10 tabs 01/12/23 Allergies Allergy/AdvReac Type Severity Reaction Status Date / Time Penicillins Allergy Verified 01/12/23 16:14 Worker's Comp Is this a Worker's Comp case?: No [facility] Disclaimer: The information contained in this section may have been updated after the patient was seen, as this information can be updated by other users. Medical History (Updated 01/12/23 @ 16:29 by Kath Rosen APRN) COPD (chronic obstructive pulmonary disease) Dyspnea on exertion Family history of asth
[2023-01-12 16:37] VITALS: BP 121/70; PULSE 93; RESP 21; TEMP 36.9; O2SAT 96
[2023-01-12 16:39] LABS: UTC Strep Screen (Rapid) Negative (Negative)
[2023-01-12 16:40] LABS: UTC Influenza A Antigen Negative (Negative); UTC Influenza B Antigen Negative (Negative)
[2023-01-12 16:40] LABS: Adenovirus,PCR Not Detected (NotDetected); Bordetella Pertussis Not Detected (NotDetected); Chlamydophila Pneumoniae, PCR Not Detected (NotDetected); Coronavirus 229E Not Detected (NotDetected); Coronavirus NL63 Not Detected (NotDetected); Coronavirus OC43 Not Detected (NotDetected); Coronovirus HKU1,PCR Not Detected (NotDetected); Human Metapneumovirus Not Detected (NotDetected); Influenza A, PCR Not Detected (NotDetected); Influenza AH1, 2009 Not Detected (NotDetected); Influenza AH1, PCR Not Detected (NotDetected); Influenza AH3,PCR Not Detected (NotDetected); Influenza B, PCR Not Detected (NotDetected); Mycoplasma Pneumoniae, PCR Not Detected (NotDetected); Parainfluenza 1, PCR Not Detected (NotDetected); Parainfluenza 2, PCR Not Detected (NotDetected); Parainfluenza 3, PCR Not Detected (NotDetected); Parainfluenza 4, PCR Not Detected (NotDetected); Respiratory Syncytial Virus Not Detected (NotDetected); Rhinovirus/Enterovirus Not Detected (NotDetected)
[2023-01-12 18:50] LABS: Coronavirus 19, PCR Detected (NotDetected)
== END 2023-01-12 16:43 | disposition home or self-care (01) ==
PROVIDERS: Emergency Provider Nurse Practitioner; PCP Emergency Medicine
DX: J06.9 Acute upper respiratory infection, unspecified; R51.9 Headache, unspecified; R50.9 Fever, unspecified; U07.1 COVID-19; F17.210 Nicotine dependence, cigarettes, uncomplicated
CPT/HCPCS: 87581; 87632; 87798; 87804; 87880; 99212; 99214; C9803; G0463; U0003; U0005

== ENCOUNTER 2023-01-25 15:30 | Emergency (ER) | payer BC, SELFPAY ==
[2023-01-25 15:44] VITALS: BP 115/73; PULSE 91; RESP 18; TEMP 36.6; O2SAT 97; BMI 34.3
--- NOTE | 2023-01-25 16:29 | CT_ITS ---
PROCEDURE INFORMATION: Exam: CT Head Without Contrast Exam date and time: 01/25/2023 4:39 PM Age: 72 years old Clinical indication: Pain; Headache; Additional info: Right sided headache TECHNIQUE: Imaging protocol: Computed tomography of the head without contrast. Radiation optimization: All CT scans at this facility use at least one of these dose optimization techniques: automated exposure control; mA and/or kV adjustment per patient size (includes targeted exams where dose is matched to clinical indication); or iterative reconstruction. REPORTING DATA: Count of CT and Cardiac NM exams in prior 12 months: This patient has received [address] and 0 known cardiac nuclear medicine studies in the 12 months prior to the current study. COMPARISON: HDWO CT HEAD W/O CONTRAST 06/12/2017 3:04 PM FINDINGS: Brain: No evidence of acute parenchymal hemorrhage, extra-axial collection or local regional mass effect. Cerebral ventricles: The ventricles, sulci and cisterns are normal in size and configuration. No hydrocephalus or midline structure shift Pituitary gland and sella: Sellar/parasellar structures, orbits and craniocervical junction are unremarkable Paranasal sinuses: Visualized sinuses are unremarkable. No fluid levels. Mastoid air cells: Visualized mastoid air cells are well aerated. Bones/joints: No calvarial fracture Soft tissues: Unremarkable. IMPRESSION: No acute intracranial abnormality. No calvarial fracture.
--- NOTE | 2023-01-25 16:32 | HMH.EDGENADL ---
Discharge Plan Disposition Patient Disposition: Home, Self-Care Condition: Fair Prescriptions Prescriptions: No Action levothyroxine 125 mcg tablet 125 mcg PO DAILY benzonatate 100 mg capsule 100 mg PO TID PRN (Reason: cough) Qty: 30 0RF Referrals Follow up/Referrals: Mich Dodge MD [Primary Care Provider] - See instructions Activity Restrictions/Add. Instructions Additional Instructions/Restrictions: Follow-up with your family doctor regarding this visit to the emergency department for neuralgia. Discuss the use of gabapentin versus neuralgia medications (such as carbamazepine, among others) to control the shooting pains on the side of your scalp. Clinical Impressions Clinical Impression: Neuralgia involving scalp Discharge ED Provider: Sebastian Estrella General Adult HPI General Chief complaint: Headache Stated complaint: ORTIZ Time Seen by Provider: 01/25/23 15:39 Mode of Arrival: Ambulatory Source of Information: Patient Limitations: No Limitations Description of Symptoms (Recalled from ER Triage Doc. by RN): Presents from PCP d/t severe r-sided h/a with intermitten vision changes to right eye. Pt reports intermittent H/A x 2 mon, however while at work today, the pain had progressed. Pt saw PCP, who then referred to ED for further evaluation. +nausea. Denies blood thinners. History of Present Illness HPI narrative: This is a 72-year-old female with history of hypertension, COPD presenting with headache. Patient states that she has had headache for about 2 months. Is gotten worse over the past couple of weeks. She saw her primary care doctor a couple of times, but no resolution was found. Because of this, patient was told to come to the ER. Patient states that her pain is constantly like a toothache in the side of my head. Intermittently, it shoots up to an 8 out of 10, feels like stabbing in the side of my head. Nothing in particular makes it worse, nothing in particular makes it better. She has no jaw claudication, tenderness of scalp, fevers, nausea, vomiting, vision changes, or any other neurologic complaints. She has tried ibuprofen with mild relief, but would like to further investigate. Related Data Home Medications Medication Instructions Recorded Confirmed levothyroxine 125 mcg tablet 125 mcg PO DAILY THYROID 01/12/23 01/25/23 Previous Rx's Medication Instructions Recorded benzonatate 100 mg capsule 100 mg PO TID PRN cough #30 caps 01/12/23 Allergies Allergy/AdvReac Type Severity Reaction Status Date / Time Penicillins Allergy Verified 01/25/23 14:39 [facility] Disclaimer: The information contained in this section may have been updated after the patient was seen, as this information can be updated by other users. Medical History COPD (chronic obstructive pulmonary disease) Dyspnea on exertion Family history of asthma Hypothyroidism (acquired) Pulmonary emphysema Screening for lung cancer Seasonal allergic rhinitis Smoking greater than 30 pack years Tobacco abuse counseling Tobacco abuse disorder Surgical History History of arthroscopic knee surgery History of tonsillectomy Family History Other Alcoholism Coronary artery disease Diabetes Hyperlipidemia Hypertension Substance abuse Thyroid disorder Social History Smoking Status: Unknown if ever smoked second hand exposure: Yes alcohol intake: current substance use type: denies use current occupational status: employed Travel in the last 8 weeks: None household members: family housing: house 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
[2023-01-25 16:40] LABS: Basophils # 0.1 K/mm3 (0-0.2); Basophils % 1.1 % (0.1-2.0); Eosinophils # 0.2 K/mm3 (0.0-0.4); Eosinophils % 1.7 % (0.1-12.0); Hematocrit 47.9 % (37.0-47.0); Lymphocytes # 3.5 K/mm3 (0.7-4.5); Lymphocytes % 30.5 % (10-50); Mean Corpuscular HGB Conc 33.3 g/dL (31.8-35.4); Mean Platelet Volume 9.2 fl (7.4-10.4); Monocytes # 0.6 K/mm3 (0.1-1.0); Monocytes % 5.3 % (1.7-9.3); Neutrophils # 6.9 K/mm3 (1.8-7.8); Neutrophils % 61.3 % (37.0-80.0); Platelet Count 283 K/mm3 (142-424); Red Blood Count 5.33 M/mm3 (4.20-5.40); Red Cell Distribution Width 14.1 % (11.5-17.5); White Blood Count 11.3 K/mm3 (4.8-10.8)
[2023-01-25 16:41] LABS: Chloride 105 mmol/L (98-107); Sodium 140 mmol/L (136-145)
[2023-01-25 16:42] LABS: Potassium 3.8 mmoL/L (3.5-5.1)
[2023-01-25 16:45] LABS: Anion Gap 12.8 mEq/L (5-15); Blood Urea Nitrogen 20 mg/dl (7-17); Calcium 9.2 mg/dl (8.4-10.2); Carbon Dioxide 26 mmol/L (22.0-30.0); Creatinine Clearance Estimated 75 mL/min (50-200); Estimated Glomerular Filt Rate 122 ml/min (>60); GFR (African American) 148 ML/MIN (>60); Glucose 148 mg/dl (74-100)
[2023-01-25 16:50] LABS: C-Reactive Protein 4.5 mg/L (0-4)
[2023-01-25 17:01] VITALS: BP 133/59; PULSE 68; O2SAT 95
--- NOTE | 2023-01-25 17:11 | PC.NURSE ---
Meds given. Pt updated on plan of care.
[2023-01-25 17:28] LABS: Erythrocyte Sedimentation Rate 15 mm/hr (0-30)
--- NOTE | 2023-01-25 17:28 | PC.NURSE ---
Pt updated on plan of care. Warm blanket provided. improvement noted with medications.
[2023-01-25 17:31] VITALS: BP 107/46; PULSE 78; O2SAT 94
[2023-01-25 18:01] VITALS: BP 109/60; PULSE 75; O2SAT 94
[2023-01-25 18:14] VITALS: BP 109/60; PULSE 75; RESP 18; TEMP 36.6; O2SAT 95
== END 2023-01-25 18:18 | disposition home or self-care (01) ==
PROVIDERS: Emergency Provider Emergency Medicine; PCP Emergency Medicine
DX: R51.9 Headache, unspecified (principal); H53.8 Other visual disturbances
CPT/HCPCS: 70450; 80048; 85025; 85651; 86140; 96360; 96365; 96374; 96375; 99285; J3475

== ENCOUNTER → 2023-01-31 06:52 | Outpatient (CLI) | payer BC, SELFPAY ==
[2023-01-31 09:18] LABS: Hemoglobin A1C 5.4 % (4.0-6.0)
[2023-01-31 09:19] LABS: Chloride 106 mmol/L (98-107); Potassium 4.5 mmoL/L (3.5-5.1); Sodium 140 mmol/L (136-145)
[2023-01-31 09:21] LABS: Blood Urea Nitrogen 16 mg/dl (7-17); Estimated Glomerular Filt Rate 99 ml/min (>60); GFR (African American) 120 ML/MIN (>60)
[2023-01-31 09:22] LABS: Alanine Aminotransferase 20 U/L (12-78); Albumin Level 3.9 g/dl (3.5-5.0); Albumin/Globulin Ratio 1.8 (1.1-1.8); Alkaline Phosphatase 83 U/L (38-126); Anion Gap 9.5 mEq/L (5-15); Aspartate Amino Transferase 22 U/L (14-36); Bilirubin,Total 0.6 mg/dl (0.2-1.3); Calcium 9.4 mg/dl (8.4-10.2); Carbon Dioxide 29 mmol/L (22.0-30.0); Chol/HDL Ratio 3.1 (1-3.5); Cholesterol 159 mg/dl (140-200); Globulin 2.2 g/dL (1.3-3.2); Glucose 104 mg/dl (74-100); HDL Cholesterol 51 mg/dl (40-60); Total Protein,Serum 6.1 g/dl (6.3-8.2); Triglycerides 102 mg/dl (30-150); VLDL Cholesterol 20 mg/dL (0-40)
[2023-01-31 09:33] LABS: Direct LDL Cholesterol 88.54 mg/dL (100-129)
== END ==
LOC: LAB 06:52
PROVIDERS: PCP Emergency Medicine; Visit Provider Nurse Practitioner Family
DX: E03.9 Hypothyroidism, unspecified (principal); E78.5 Hyperlipidemia, unspecified; R73.09 Other abnormal glucose; N28.9 Disorder of kidney and ureter, unspecified
CPT/HCPCS: 36415; 80053; 80061; 83036

== ENCOUNTER 2023-03-09 22:36 | Inpatient (IN) | payer BC, MEDICARE, SELFPAY ==
[2023-03-09 22:37] VITALS: BP 123/71; PULSE 89; RESP 26; TEMP 36.9; O2SAT 92; BMI 34.3
--- NOTE | 2023-03-09 23:54 | PC.NURSE ---
RT at to obtain ABG
--- NOTE | 2023-03-09 23:57 | ECG_ITS ---
APPROVED REPORT Exam: Resting ECG HR:93 bpm ECG Measurements Heart Rate 93 AXES AK 162 P 79 QRSd 92 QRS 83 QT 351 T 84 QTc 402 Conclusion SINUS RHYTHM MODERATE ST DEPRESSION [0.05+ mV ST DEPRESSION] ABNORMAL ECG UNCONFIRMED REPORT Electronically signed by : Amilcar Tripathi MD 03/10/2023 07:10:58
[2023-03-10] VITALS (19 sets, daily range): BP systolic 117–179; BP diastolic 63–98; PULSE 73–109; RESP 14–24; TEMP 36.6–36.9; O2SAT 90–96; BMI 34.9
--- NOTE | 2023-03-10 | XR_ITS ---
PROCEDURE INFORMATION: Exam: XR Chest Exam date and time: 03/10/2023 12:03 AM Age: 73 years old Clinical indication: Shortness of breath; Additional info: SOA TECHNIQUE: Imaging protocol: Radiologic exam of the chest. Views: 2 views. COMPARISON: CR XR CHEST PORTABLE 08/30/2022 3:20 PM FINDINGS: Lungs: Chronic underlying interstitial lung markings. Chronic hyperinflation of lungs. Pleural spaces: Unremarkable. No pleural effusion. No pneumothorax. Heart/Mediastinum: Unremarkable. No cardiomegaly. Bones/joints: Unremarkable. IMPRESSION: No acute findings.
[2023-03-10 00:01] LABS: ABG Base Excess -0.7 mmol/L (-2.4-2.3); ABG HCO3 24.2 mmhg (22.0-26.0); ABG Oxygen Saturation 92 % (90-100); ABG PCO2 40.2 mmhg (35.0-45.0); ABG PO2 57.9 mmhg (80-100); ABG TCO2 25.4 mmhg (23-27)
[2023-03-10 00:03] LABS: Allen's Test Acceptable; Oxygen ROOM AIR %; Source Right Radial
[2023-03-10 00:08] LABS: Basophils # 0.1 K/mm3 (0-0.2); Basophils % 0.9 % (0.1-2.0); Eosinophils # 0.7 K/mm3 (0.0-0.4); Eosinophils % 6.6 % (0.1-12.0); Hematocrit 44.5 % (37.0-47.0); Hemoglobin 14.6 g/dL (12.2-16.2); Lymphocytes # 3.6 K/mm3 (0.7-4.5); Lymphocytes % 32.5 % (10-50); Mean Corpuscular HGB Conc 32.8 g/dL (31.8-35.4); Mean Corpuscular Hemoglobin 29.8 pg (27.0-31.2); Mean Corpuscular Volume 90.6 fl (81-99); Mean Platelet Volume 9.6 fl (7.4-10.4); Monocytes # 0.5 K/mm3 (0.1-1.0); Monocytes % 4.6 % (1.7-9.3); Neutrophils # 6.2 K/mm3 (1.8-7.8); Neutrophils % 55.5 % (37.0-80.0); Platelet Count 272 K/mm3 (142-424); Red Blood Count 4.91 M/mm3 (4.20-5.40); Red Cell Distribution Width 14.1 % (11.5-17.5); White Blood Count 11.2 K/mm3 (4.8-10.8)
[2023-03-10 00:11] LABS: Chloride 104 mmol/L (98-107); Potassium 3.8 mmoL/L (3.5-5.1); Sodium 140 mmol/L (136-145)
[2023-03-10 00:13] LABS: Alanine Aminotransferase 32 U/L (12-78); Aspartate Amino Transferase 37 U/L (14-36); Blood Urea Nitrogen 19 mg/dl (7-17); Creatinine Clearance Estimated 74 mL/min (50-200); Estimated Glomerular Filt Rate 99 ml/min (>60); GFR (African American) 119 ML/MIN (>60)
[2023-03-10 00:14] LABS: Albumin Level 4.3 g/dl (3.5-5.0); Albumin/Globulin Ratio 1.5 (1.1-1.8); Alkaline Phosphatase 88 U/L (38-126); Anion Gap 11.8 mEq/L (5-15); Bilirubin,Total 0.5 mg/dl (0.2-1.3); Calcium 9.2 mg/dl (8.4-10.2); Carbon Dioxide 28 mmol/L (22.0-30.0); Globulin 2.8 g/dL (1.3-3.2); Glucose 110 mg/dl (74-100); Total Protein,Serum 7.1 g/dl (6.3-8.2)
[2023-03-10 00:23] LABS: NT Pro Brain Natriuretic Pep. < 20.0 pg/mL (0-125)
[2023-03-10 00:29] LABS: Troponin I < 0.01 ng/ml (0.00-0.034)
--- NOTE | 2023-03-10 01:02 | HMH.EDSOB ---
Discharge Plan Disposition Patient Disposition: Admitted Chief Complaint: Shortness of Breath/Dyspnea Prescriptions Prescriptions: No Action gabapentin 100 mg capsule 100 mg PO BID Qty: 60 0RF albuterol sulfate 0.63 mg/3 mL solution for nebulization 0.63 mg inhalation Q6H Qty: 90 2RF levothyroxine 125 mcg tablet 125 mcg PO DAILY Discharge ED Provider: Dar (ED)Mich Resp/SOB HPI General Chief Complaint: Shortness of Breath/Dyspnea Stated Complaint: SOB,Cough.Weakness, Cant walk long distian Time Seen by Provider: 03/10/23 01:02 Mode of Arrival: Ambulatory Source of Information: Patient Limitations: No Limitations Description of Symptoms (Recalled from ER Triage Doc. by RN): Pt from home with recent dx of COPD from her pulmonary dr. Pt states she has had a cough for 2 months and started to feel SOA yesterday which got worse tonight. Pt takes Albuterol nebulizer tx at home, does not wear O2 at home. Pt denies any pain at this besides soreness in ribs from coughing. History of Present Illness hx of copd and has increased sob - no home o2 - MD Complaint: shortness of breath and cough Onset (ago): hour(s) Severity: moderate Consistency/Duration: constant Known history of: COPD Treatment prior to arrival: bronchodilator Related Data Home oxygen amount: none Home Medications Medication Instructions Recorded Confirmed levothyroxine 125 mcg tablet 125 mcg PO DAILY THYROID 01/12/23 01/30/23 Previous Rx's Medication Instructions Recorded gabapentin 100 mg capsule 100 mg PO BID #60 caps 01/30/23 albuterol sulfate 0.63 mg/3 mL 0.63 mg (3 mL) inhalation Q6H 02/27/23 solution for nebulization shortness of breath #90 mL Allergies Allergy/AdvReac Type Severity Reaction Status Date / Time Penicillins Allergy Verified 01/30/23 14:55 [facility] Disclaimer: The information contained in this section may have been updated after the patient was seen, as this information can be updated by other users. Medical History COPD (chronic obstructive pulmonary disease) Dyspnea on exertion Family history of asthma Hypothyroidism (acquired) Pulmonary emphysema Screening for lung cancer Seasonal allergic rhinitis Smoking greater than 30 pack years Tobacco abuse counseling Tobacco abuse disorder Surgical History History of arthroscopic knee surgery History of tonsillectomy Family History Other Alcoholism Coronary artery disease Diabetes Hyperlipidemia Hypertension Substance abuse Thyroid disorder Social History Smoking Status: Current every day smoker tobacco type: cigarettes packs per day: 1 second hand exposure: Yes alcohol intake: current substance use type: denies use current occupational status: employed Travel in the last 8 weeks: None household members: family housing: house 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 ROS Obtained: Yes All systems reviewed & no additional complaints except as documented Physical Exam General General appearance: alert, obese and other (tripod position ) Head Head exam: normocephalic Eye Eye exam: Present PERRL and EOMI ENT ENT exam: Present mucous membranes moist Neck Neck exam: Absent trachea midline Respiratory Respiratory exam: Present wheezes and other Cardiovascular Cardiovascular exam: Present regular rate, systolic murmur and +S4 Abdominal Exam Abdominal exam: Present soft Extremities Exam Extremities exam: Absent calf tenderness Neurological Exam Neurological exam: Present alert, oriented X3 and CN II-XII intact; Absent motor sensory deficit Psychiatric Psychiatric exam: Present anxious Skin Skin exam: Absent rash Medical Decision Making Medical Records Medical records reviewed: Yes I reviewed the pat
--- NOTE | 2023-03-10 02:01 | PC.NURSE ---
Hospitalist at bedside speaking with patient.
[2023-03-10 02:03] LABS: Coronavirus 19, PCR Not Detected (NotDetected); Influenza A, PCR Not Detected (NotDetected); Influenza B, PCR Not Detected (NotDetected)
--- NOTE | 2023-03-10 02:56 | PC.NURSE ---
Gave report to Adele Bolden RN
--- NOTE | 2023-03-10 03:30 | PC.NURSE ---
Patient arrived to the floor via wheelchair @ [phone]
[2023-03-10 04:31] LABS: Troponin I < 0.01 ng/ml (0.00-0.034)
--- NOTE | 2023-03-10 04:34 | EXP.HP ---
History of Present Illness *Admission Date: 03/10/23 *Reason for visit:: copd e PFSH [facility] Disclaimer: The information contained in this section may have been updated after the patient was seen, as this information can be updated by other users. Medical History COPD (chronic obstructive pulmonary disease) Dyspnea on exertion Family history of asthma Hypothyroidism (acquired) Pulmonary emphysema Screening for lung cancer Seasonal allergic rhinitis Smoking greater than 30 pack years Tobacco abuse counseling Tobacco abuse disorder Surgical History History of arthroscopic knee surgery History of tonsillectomy Family History Other Alcoholism Coronary artery disease Diabetes Hyperlipidemia Hypertension Substance abuse Thyroid disorder Social History (Updated 03/10/23 @ 03:56 by Lynda Tobias RN) Smoking Status: Current every day smoker tobacco type: cigarettes packs per day: 1 second hand exposure: Yes alcohol intake: current substance use type: denies use current occupational status: employed Travel in the last 8 weeks: None household members: family housing: house 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 Meds Home Medications and Allergies Home Medications Medication Instructions Recorded Confirmed Type levothyroxine 125 mcg tablet 125 mcg PO DAILY THYROID 01/12/23 03/10/23 History albuterol sulfate 0.63 mg/3 mL 0.63 mg (3 mL) inhalation Q6H 02/27/23 03/10/23 Rx solution for nebulization shortness of breath #90 mL New Prescriptions to Start Prescriptions: Allergies Allergy/AdvReac Type Severity Reaction Status Date / Time Penicillins Allergy Verified 01/30/23 14:55 Exam Data for Last 24 hours Vital signs and Labs for Last 24 Hours: Temp Pulse Resp BP Pulse Ox 98.0 F 80 22 148/80 H 93 L 03/10/23 04:00 03/10/23 04:00 03/10/23 04:03 03/10/23 04:00 03/10/23 04:03 Laboratory Results - last 24 hr 03/09/23 22:55: WBC 11.2 H, RBC 4.91, Hgb 14.6, Hct 44.5, MCV 90.6, MCH 29.8, MCHC 32.8, RDW 14.1, Plt Count 272, MPV 9.6, Neut % (Auto) 55.5, Lymph % (Auto) 32.5, Mccormick % (Auto) 4.6, Eos % (Auto) 6.6, Baso % (Auto) 0.9, Neut # (Auto) 6.2, Lymph # (Auto) 3.6, Mccormick # (Auto) 0.5, Eos # (Auto) 0.7 H, Baso # (Auto) 0.1 03/09/23 22:55: Sodium 140, Potassium 3.8, Chloride 104, Carbon Dioxide 28, Anion Gap 11.8, BUN 19 H, Creatinine 0.60, Estimated Creat Clear 74, Estimated GFR 99, Est GFR ( Amer) 119, Glucose 110 H, Calcium 9.2, Magnesium 2.0, Total Bilirubin 0.5, AST 37 H, ALT 32, Alkaline Phosphatase 88, Troponin I < 0.01, Total Protein 7.1, Albumin 4.3, Globulin 2.8, Albumin/Globulin Ratio 1.5 03/09/23 22:55: Lactate 2.0 03/09/23 23:56: Specimen Source Right radial, O2 % Room air, ABG pH 7.40, ABG pCO2 40.2, ABG pO2 57.9 L, ABG HCO3 24.2, ABG Total CO2 25.4, ABG O2 Saturation 92, ABG Base Excess -0.7, Jason Test Acceptable 03/10/23 00:01: NT-Pro-B Natriuret Pep < 20.0 03/10/23 01:58: SARS-CoV-2 (PCR) Not detected, Influenza A Untype (PCR) Not detected, Influenza Type B (PCR) Not detected 03/10/23 03:30: Troponin I < 0.01 I & O for Last 24 hours: Intake & Output 03/07/23 03/08/23 03/09/23 03/10/23 23:59 23:59 23:59 23:59 Intake Total 1300 / 1300 Balance 1300 / 1300 Weight 90.718 kg 92.85 kg
--- NOTE | 2023-03-10 04:35 | EXP.HP ---
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 not able to walk across the room this is a first time event for her [facility] Disclaimer: The information contained in this section may have been updated after the patient was seen, as this information can be updated by other users. Medical History COPD (chronic obstructive pulmonary disease) Dyspnea on exertion Family history of asthma Hypothyroidism (acquired) Pulmonary emphysema Screening for lung cancer Seasonal allergic rhinitis Smoking greater than 30 pack years Tobacco abuse counseling Tobacco abuse disorder Surgical History History of arthroscopic knee surgery History of tonsillectomy Family History Other Alcoholism Coronary artery disease Diabetes Hyperlipidemia Hypertension Substance abuse Thyroid disorder Social History Smoking Status: Current every day smoker tobacco type: cigarettes packs per day: 1 second hand exposure: Yes alcohol intake: current substance use type: denies use current occupational status: employed Travel in the last 8 weeks: None household members: family housing: house 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 Review of Systems Review of Systems Review of systems:: pertinent systems reviewed and negative unless documented below Constitutional Constitutional: Reports lethargy and Reports weakness ENT Ears, Nose, Mouth, and Throat: Reports sore throat (from cough ) *Cardiovascular Cardiovascular: Reports system reviewed and no additional complaints, except as documented, Reports dyspnea and Reports dyspnea on exertion Comments: denies chest pain *Respiratory Respiratory: Reports chest congestion, Reports cough, Reports dyspnea, Reports dyspnea on exertion, Reports pain with cough and Reports wheezing *Gastrointestinal Gastrointestinal: Reports system reviewed and no additional complaints, except as documented *Genitourinary Genitourinary: Reports system reviewed and no additional complaints, except as documented *Musculoskeletal Musculoskeletal: Reports system reviewed and no additional complaints, except as documented *Neurologic Neurologic: Reports system reviewed and no additional complaints, except as documented and Reports weakness Psychiatric Psychiatric: Reports system reviewed and no additional complaints, except as documented Endocrine Endocrine: Reports system reviewed and no additional complaints, except as documented Allergic/Immunologic Allergic/Immunologic: Reports wheezing Meds Home Medications and Allergies Home Medications Medication Instructions Recorded Confirmed Type levothyroxine 125 mcg tablet 125 mcg PO DAILY THYROID 01/12/23 03/10/23 History albuterol sulfate 0.63 mg/3 mL 0.63 mg (3 mL) inhalation Q6H 02/27/23 03/10/23 Rx solution for nebulization shortness of breath #90 mL tiotropium 2.5 mcg-olodaterol 2.5 2 puff inhalation DAILY COPD 03/10/23 03/10/23 History mcg/actuation mist for inhalation (Stiolto Respimat) New Prescriptions to Start Prescriptions: Allergies Allergy/AdvReac Type Severity Reaction Status Date / Time Penicillins Allergy Verified 01/30/23 14:55 Exam Data for Last 24 hours Vital signs and Labs for Last 24 Hours: Temp Pulse Resp BP Pulse Ox 98.0 F 80 22 148/80 H 93 L 03/10/23 04:00 03/10/23 04:00 03/10/23 04:03 03/10/23 04:00 03/10/23 04:03 Laboratory Results - last 24 hr 03/09/23 22:55: WBC 11.2 H, RBC 4.91, Hgb 14.6, Hct 44.5, MCV 90.6, MCH 29.8, MCHC 32.8, RDW 14.1, Plt Count 272, MP
[2023-03-10 07:54] LABS: Troponin I < 0.01 ng/ml (0.00-0.034)
--- NOTE | 2023-03-10 09:10 | HMH.PHAINT1 ---
Pharmacy Intervention Comments: MEDICATION RECONCILIATION COMPLETED ON PATIENT USING EXTERNAL FILL HISTORY FROM PHARMACY. -MILLICENT RANDOLPH, DONTED
--- NOTE | 2023-03-10 13:07 | PC.NURSE ---
late entry: per marek, order mucinex and prednisone.
--- NOTE | 2023-03-10 16:38 | PC.NURSE ---
PT REQUESTING SOMETHING TO HELP SLEEP TONIGHT. NOTIFIED
[2023-03-10 20:23] LABS: Procalcitonin < 0.030 ng/mL (0.0-2.0)
--- NOTE | 2023-03-10 21:42 | PC.NURSE ---
Administered TB skin test per order to patients L forearm on this date 03/10 at 2100, Lot number [id number] exp 07/08.
[2023-03-11] VITALS (10 sets, daily range): BP systolic 120–139; BP diastolic 61–80; PULSE 64–104; RESP 16–22; TEMP 36.4–36.9; O2SAT 95–98; BMI 34.8
--- NOTE | 2023-03-11 10:19 | PC.NURSE ---
per lorena, order chest PT and dc all abx
--- NOTE | 2023-03-11 10:22 | EXP.ACUTE.PN ---
Subjective *Date: 03/11/23 *Time: 10:34 Interval history: No concerns at this time. Not feeling too much better, still having severe cough. Mucinex is helping. Medical Exam Vital signs and Labs for Last 24 Hours: Vital Signs Temp Pulse Pulse Resp BP Pulse Ox FiO2 03/11/23 07:21 97.9 F 88 19 120/73 98 03/11/23 06:20 68 03/11/23 06:20 64 03/11/23 06:20 97 03/11/23 04:00 98.4 F 79 16 129/61 96 03/11/23 00:00 97.6 F 94 H 20 130/62 95 03/10/23 23:05 80 03/10/23 23:04 82 03/10/23 20:00 97.9 F 98 H 24 131/71 94 L 03/10/23 18:39 28 03/10/23 18:39 87 03/10/23 18:38 88 03/10/23 15:10 98.0 F 93 H 19 117/63 93 L 03/10/23 11:55 90 03/10/23 11:55 90 03/10/23 11:55 91 L 03/10/23 11:11 98.2 F 99 H 18 152/66 H 94 L Intake and Output 03/10/23 03/11/23 03/11/23 23:59 07:59 15:59 Intake Total 1562 / 4562 1460 / 1460 Output Total 200 / 200 100 / 100 Balance 1362 / 4362 1360 / 1360 Intake: Intake, Oral Amount 360 / 960 360 / 360 Intake, Total IV Amount 1202 / 2302 1100 / 1100 0.9 % Sodium Chloride 1000ML 1, 1202 / 2302 1100 / 1100 000 ml @ 100 mls/hr IV .Q10H [facility] Rx#:[id number] Output: Output, Urine Amount 200 / 200 100 / 100 Other: Number of Unmeasured Voids 0 1 Weight 92.487 kg Patient Weight 03/11/23 23:59 Weight 92.487 kg Laboratory Results - last 24 hr 03/10/23 07:14: Procalcitonin Cancelled 03/10/23 19:25: Procalcitonin < 0.030 I & O for Labs for Last 24 Hours: Intake & Output 03/08/23 03/09/23 03/10/23/28/23 23:59 23:59 23:59 23:59 Intake Total 3462 / 4562 1460 / 1460 Output Total 200 / 200 100 / 100 Balance 3262 / 4362 1360 / 1360 Weight 90.718 kg 92.85 kg 92.487 kg Microbiology Reports for the Last 24 Hours: Microbiology 03/09/23 03:20 Sputum - Expectorated Sputum Gram Stain - Final Constitutional: Present no acute distress Respiratory: Present normal respiratory effort Cardiac: Present Reg Rate and Rhythm GI: Present normal bowel sounds; Absent tenderness Extremities: Present normal inspection and full ROM Skin: Present intact; Absent erythema Neuro: Present Grossly Intact and moves all extremities Assessment and Plan *Assessment and plan (1) Acute exacerbation of chronic obstructive pulmonary disease (COPD): Status: Acute Category: Medical Code(s): J44.1 - Chronic obstructive pulmonary disease with (acute) exacerbation (2) URI (upper respiratory infection): Status: Acute Qualifiers: URI type: unspecified URI Qualified Code(s): J06.9 - Acute upper respiratory infection, unspecified Category: Medical Code(s): J06.9 - Acute upper respiratory infection, unspecified (3) Smoking greater than 30 pack years: Status: Chronic Category: Social Hx Code(s): F17.210 - Nicotine dependence, cigarettes, uncomplicated (4) Obesity (BMI 30.0-34.9): Status: Acute Category: Medical Code(s): E66.9 - Obesity, unspecified Plan COPD exacerbation procal negative. At this time I suspect it is likely due to a virus and less likely bacterial given her chest x-ray. Even less likely suspect CHF? especially given negative BNP.? Will monitor improvement and keep on differetial. Will doscontinue abx at this time. Conintue steroidsContinue DuoNebs and albuterol, will add Mucinex 1200, continue prednisone 40 daily.? Incentive spirometer.? Chest physiotherapy. Pulm consult. Home rx. Will repeat labs
[2023-03-11 10:37] LABS: Basophils % 0.3 % (0.1-2.0); Eosinophils # 0.2 K/mm3 (0.0-0.4); Eosinophils % 1.7 % (0.1-12.0); Hemoglobin 13.3 g/dL (12.2-16.2); Lymphocytes # 2.8 K/mm3 (0.7-4.5); Lymphocytes % 21.2 % (10-50); Mean Corpuscular HGB Conc 31.6 g/dL (31.8-35.4); Mean Corpuscular Hemoglobin 29.1 pg (27.0-31.2); Mean Platelet Volume 8.8 fl (7.4-10.4); Monocytes # 0.6 K/mm3 (0.1-1.0); Neutrophils # 9.3 K/mm3 (1.8-7.8); Neutrophils % 71.8 % (37.0-80.0); Platelet Count 227 K/mm3 (142-424); Red Blood Count 4.57 M/mm3 (4.20-5.40); Red Cell Distribution Width 14.4 % (11.5-17.5); White Blood Count 12.9 K/mm3 (4.8-10.8)
[2023-03-11 10:46] LABS: Alanine Aminotransferase 28 U/L (12-78); Albumin Level 3.6 g/dl (3.5-5.0); Albumin/Globulin Ratio 1.5 (1.1-1.8); Alkaline Phosphatase 71 U/L (38-126); Anion Gap 14.1 mEq/L (5-15); Aspartate Amino Transferase 33 U/L (14-36); Bilirubin,Total 0.4 mg/dl (0.2-1.3); Blood Urea Nitrogen 17 mg/dl (7-17); Calcium 8.5 mg/dl (8.4-10.2); Carbon Dioxide 22 mmol/L (22.0-30.0); Chloride 111 mmol/L (98-107); Creatinine Clearance Estimated 75 mL/min (50-200); Estimated Glomerular Filt Rate 99 ml/min (>60); GFR (African American) 119 ML/MIN (>60); Globulin 2.4 g/dL (1.3-3.2); Glucose 126 mg/dl (74-100); Potassium 4.1 mmoL/L (3.5-5.1); Sodium 143 mmol/L (136-145)
--- NOTE | 2023-03-11 17:45 | PC.NURSE ---
PT HAS TOLERATED RA WELL WITH SATS AT 97%. PT HAS BEEN UP TP CHAIR FOR A COUPLE OF HRS, PT HAS HAD A DRY HACKING COUGH BUT WITH SLIGHT IMPROVEMENT FROM YESTERDAY. CB ALESSANDRO JUAREZ. NO NEEDS AT THIS TIME. FAMILY AT BS
--- NOTE | 2023-03-11 23:48 | EXP.EVENT.NO ---
sever cough , now sore in rib cage. will try different cough syrups. per history cough for 2 months now worse
[2023-03-12] VITALS (11 sets, daily range): BP systolic 131–143; BP diastolic 62–73; PULSE 62–89; RESP 19–24; TEMP 36.3–36.8; O2SAT 4–98; BMI 37.8
[2023-03-12 07:06] LABS: Basophils % 0.3 % (0.1-2.0); Eosinophils # 0.1 K/mm3 (0.0-0.4); Eosinophils % 0.7 % (0.1-12.0); Hematocrit 41.3 % (37.0-47.0); Hemoglobin 13.1 g/dL (12.2-16.2); Lymphocytes % 30.2 % (10-50); Mean Corpuscular HGB Conc 31.6 g/dL (31.8-35.4); Mean Corpuscular Hemoglobin 29.7 pg (27.0-31.2); Mean Corpuscular Volume 93.9 fl (81-99); Mean Platelet Volume 9.6 fl (7.4-10.4); Monocytes # 0.6 K/mm3 (0.1-1.0); Monocytes % 4.9 % (1.7-9.3); Neutrophils # 8.3 K/mm3 (1.8-7.8); Neutrophils % 63.8 % (37.0-80.0); Platelet Count 232 K/mm3 (142-424); Red Blood Count 4.41 M/mm3 (4.20-5.40); Red Cell Distribution Width 14.4 % (11.5-17.5); White Blood Count 13.1 K/mm3 (4.8-10.8)
[2023-03-12 07:16] LABS: Alanine Aminotransferase 25 U/L (12-78); Albumin Level 3.5 g/dl (3.5-5.0); Albumin/Globulin Ratio 1.5 (1.1-1.8); Alkaline Phosphatase 73 U/L (38-126); Anion Gap 11.1 mEq/L (5-15); Aspartate Amino Transferase 30 U/L (14-36); Bilirubin,Total 0.2 mg/dl (0.2-1.3); Blood Urea Nitrogen 16 mg/dl (7-17); Calcium 8.4 mg/dl (8.4-10.2); Carbon Dioxide 25 mmol/L (22.0-30.0); Chloride 110 mmol/L (98-107); Creatinine Clearance Estimated 82 mL/min (50-200); Estimated Glomerular Filt Rate 122 ml/min (>60); GFR (African American) 147 ML/MIN (>60); Globulin 2.4 g/dL (1.3-3.2); Glucose 104 mg/dl (74-100); Potassium 4.1 mmoL/L (3.5-5.1); Sodium 142 mmol/L (136-145); Total Protein,Serum 5.9 g/dl (6.3-8.2)
--- NOTE | 2023-03-12 07:50 | XR_ITS ---
PROCEDURE INFORMATION: Exam: XR Chest Exam date and time: 03/12/2023 8:49 AM Age: 73 years old Clinical indication: Shortness of breath; Additional info: Increased o2 requirement TECHNIQUE: Imaging protocol: Radiologic exam of the chest. Views: 1 view. COMPARISON: CR XR CHEST 2V 03/10/2023 12:03 AM FINDINGS: Lungs: Opacity in the left base may represent atelectasis or pneumonia.. Pleural spaces: Small left pleural effusion.. Heart/Mediastinum: Unremarkable. No cardiomegaly. Bones/joints: Unremarkable. IMPRESSION: 1. Opacity in the left base may represent atelectasis or pneumonia.. 2. Small left pleural effusion..
[2023-03-12 08:23] LABS: Adenovirus,PCR Not Detected (NotDetected); Bordetella Pertussis Not Detected (NotDetected); Chlamydophila Pneumoniae, PCR Not Detected (NotDetected); Coronavirus 19, PCR Not Detected (NotDetected); Coronavirus 229E Not Detected (NotDetected); Coronavirus NL63 Not Detected (NotDetected); Coronavirus OC43 Not Detected (NotDetected); Coronovirus HKU1,PCR Not Detected (NotDetected); Human Metapneumovirus Not Detected (NotDetected); Influenza A, PCR Not Detected (NotDetected); Influenza AH1, 2009 Not Detected (NotDetected); Influenza AH1, PCR Not Detected (NotDetected); Influenza AH3,PCR Not Detected (NotDetected); Influenza B, PCR Not Detected (NotDetected); Mycoplasma Pneumoniae, PCR Not Detected (NotDetected); Parainfluenza 1, PCR Not Detected (NotDetected); Parainfluenza 2, PCR Not Detected (NotDetected); Parainfluenza 3, PCR Not Detected (NotDetected); Parainfluenza 4, PCR Not Detected (NotDetected); Respiratory Syncytial Virus Not Detected (NotDetected); Rhinovirus/Enterovirus Not Detected (NotDetected)
--- NOTE | 2023-03-12 10:40 | EXP.ACUTE.PN ---
Subjective *Date: 03/12/23 *Time: 12:47 Interval history: The patient is a 73 year old female who presented to the ED on 03/10 w/ c/o cough and SOA. Patient stated she was unable to ambulate due to SOA and this was the first time this occurred. Patient was admitted for medical management of COPD exacerbation. Today the patient states she is feeling the same and still c/o cough and SOA with ambulation. Was given lasix this A.M to reduce fluid overload and was started back on levofloxacin to complete treatment for COPD exacerbation. Medical Exam Vital signs and Labs for Last 24 Hours: Vital Signs Temp Pulse Pulse Resp BP Pulse Ox FiO2 03/12/23 08:00 4 L 03/12/23 06:45 62 03/12/23 06:45 68 03/12/23 06:45 98 03/12/23 07:17 98.2 F 83 19 133/62 96 03/12/23 04:00 97.6 F 74 22 143/66 H 95 03/12/23 00:00 97.7 F 76 24 138/72 96 03/11/23 20:00 97.7 F 104 H 22 139/80 97 03/11/23 18:17 28 03/11/23 18:17 83 03/11/23 18:16 82 03/11/23 15:38 98.0 F 72 19 130/63 97 03/11/23 11:30 97.9 F 74 20 137/63 96 03/11/23 11:18 82 03/11/23 11:18 85 03/11/23 11:18 96 Intake and Output 03/11/23 03/12/23 03/12/23 23:59 07:59 15:59 Intake Total 3858 / 5558 360 / 360 Output Total 100 / 300 400 / 2200 1800 / 2200 Balance 3758 / 5258 -40 / -1840 -1800 / -1840 Intake: Intake, Oral Amount 360 / 960 360 / 360 Intake, Total IV Amount 3498 / 4598 0.9 % Sodium Chloride 1000ML 1, 3498 / 4598 000 ml @ 100 mls/hr IV .Q10H [facility] Rx#:[id number] Output: Output, Urine Amount 100 / 300 400 / 2200 1800 / 2200 Other: Number of Unmeasured Voids 1 1 Weight 100.607 kg Patient Weight 03/12/23 23:59 Weight 100.607 kg Laboratory Results - last 24 hr 03/11/23 05:29: Chlamy pneumoniae PCR Not detected, Adenovirus (PCR) Not detected, B. pertussis DNA (PCR) Not detected, Coronavirus OC43 (PCR) Not detected, Coronavirus HKU1 (PCR) Not detected, Coronavirus 229E (PCR) Not detected, SARS-CoV-2 (PCR) Not detected, Coronavirus NL63 (PCR) Not detected, Human Metapneumovir PCR Not detected, Influenza A (H1) PCR Not detected, Influ A (H1N1/09) PCR Not detected, Influenza A (H3) PCR Not detected, Influenza Type A (PCR) Not detected, Influenza Type B (PCR) Not detected, M. pneumoniae (PCR) Not detected, Parainfluenza 1 (PCR) Not detected, Parainfluenza 2 (PCR) Not detected, Parainfluenza 3 (PCR) Not detected, Parainfluenza 4 (PCR) Not detected, RSV (PCR) Not detected, Entero/Rhino (PCR) Not detected 03/11/23 10:30: Sodium 143, Potassium 4.1, Chloride 111 H, Carbon Dioxide 22, Anion Gap 14.1, BUN 17, Creatinine 0.60, Estimated Creat Clear 75, Estimated GFR 99, Est GFR ( Amer) 119, Glucose 126 H, Calcium 8.5, Total Bilirubin 0.4, AST 33, ALT 28, Alkaline Phosphatase 71, Total Protein 6.0 L, Albumin 3.6 D, Globulin 2.4, Albumin/Globulin Ratio 1.5 03/11/23 10:30: WBC 12.9 H, RBC 4.57, Hgb 13.3, Hct 42.0, MCV 92.0, MCH 29.1, MCHC 31.6 L, RDW 14.4, Plt Count 227, MPV 8.8, Neut % (Auto) 71.8, Lymph % (Auto) 21.2, [place] % (Auto) 5.0, Eos % (Auto) 1.7, Baso % (Auto) 0.3, Neut # (Auto) 9.3 H, Lymph # (Auto) 2.8, [place] # (Auto) 0.6, Eos # (Auto) 0.2, Baso # (Auto) 0.0 03/12/23 06:21: WBC 13.1 H, RBC 4.41, Hgb 13.1, Hct 41.3, MCV 93.9, MCH 29.7, MCHC 31.6 L, RDW 14.4, Plt Count 232, MPV 9.6, Neut % (Auto) 63.8, Lymph % (Auto) 30.2, [place] % (Auto) 4.9, Eos % (Auto) 0.7, Baso % (Auto) 0.3, Neut # (Auto) 8.3 H, Lymph # (Auto) 4.0, [place] # (Auto) 0.6, Eos # (Auto) 0.1, Baso # (Auto) 0.0 03/12/23 06:21: Sodium 142, Potassium 4.1, Chloride 110 H, Carbon Dioxide 25, Anion Gap 11.1, BUN 16, Creatinine 0.50 L, Estimated Creat Clear 82, Estimated GFR 122, Est GFR ( Amer) 147 D, Glucose 104 H, Calcium 8.4, Total Bilirubin 0.2, AST 30, ALT 25, Alkaline Phosphatase 73, Total Protein 5.9 L, Albumin 3.5, Globulin 2.4, Albumin/Globulin Ratio 1.5 I &
[2023-03-12 12:31] LABS: Thyroid Stimulating Hormone 0.41 uIU/mL (0.465-4.68)
--- NOTE | 2023-03-12 16:52 | PC.NURSE ---
A&OX4. PT STARTED OUT SHIFT ON 4LNC, HAS BEEN WEANED TO RA, CURRENTLY 95%. PT DOES HAVE INTERMITTENT COUGHING SPELLS, DRY HACKING COUGH. RESPIRATORY PANEL SWAB COLLECTED THIS MORNING. PT UP TO BEDSIDE COMMODE INDEPENDENTLY IN ROOM, TOLERATES WELL. HAS HAD MORE THAN ADEQUATE U/O SINCE LASIX ADMINISTRATION. NO C/O OR NEEDS NOTED THUS FAR. PT HAS HAD VISITORS THIS SHIFT. VSS.
[2023-03-13] VITALS: BP 129/70; PULSE 79; RESP 20; TEMP 36.6; O2SAT 95
--- NOTE | 2023-03-13 02:00 | PC.NURSE ---
Pt's oxygen desating with sleep, down to 83-84% RA, 1L applied via nasal cannula for sleeping, saturations improved to 93%. Pt remains on continuous oxygen saturation monitoring.
[2023-03-13 04:00] VITALS: BP 136/82; PULSE 84; RESP 20; TEMP 36.3; O2SAT 96; BMI 36.6
[2023-03-13 06:11] VITALS: PULSE 70; PULSE 75; O2SAT 94
[2023-03-13 06:43] LABS: Basophils # 0.1 K/mm3 (0-0.2); Basophils % 0.4 % (0.1-2.0); Eosinophils # 0.1 K/mm3 (0.0-0.4); Eosinophils % 0.6 % (0.1-12.0); Hematocrit 41.4 % (37.0-47.0); Hemoglobin 13.1 g/dL (12.2-16.2); Lymphocytes # 4.6 K/mm3 (0.7-4.5); Lymphocytes % 39.2 % (10-50); Mean Corpuscular HGB Conc 31.6 g/dL (31.8-35.4); Mean Corpuscular Hemoglobin 29.3 pg (27.0-31.2); Mean Corpuscular Volume 92.8 fl (81-99); Monocytes # 0.7 K/mm3 (0.1-1.0); Monocytes % 6.3 % (1.7-9.3); Neutrophils # 6.3 K/mm3 (1.8-7.8); Neutrophils % 53.5 % (37.0-80.0); Platelet Count 218 K/mm3 (142-424); Red Blood Count 4.46 M/mm3 (4.20-5.40); Red Cell Distribution Width 14.4 % (11.5-17.5); White Blood Count 11.9 K/mm3 (4.8-10.8)
[2023-03-13 06:49] LABS: Alanine Aminotransferase 24 U/L (12-78); Albumin Level 3.4 g/dl (3.5-5.0); Albumin/Globulin Ratio 1.5 (1.1-1.8); Alkaline Phosphatase 69 U/L (38-126); Anion Gap 9.6 mEq/L (5-15); Aspartate Amino Transferase 28 U/L (14-36); Bilirubin,Total 0.4 mg/dl (0.2-1.3); Blood Urea Nitrogen 21 mg/dl (7-17); Calcium 8.3 mg/dl (8.4-10.2); Carbon Dioxide 31 mmol/L (22.0-30.0); Chloride 104 mmol/L (98-107); Creatinine Clearance Estimated 79 mL/min (50-200); Estimated Glomerular Filt Rate 122 ml/min (>60); GFR (African American) 147 ML/MIN (>60); Globulin 2.3 g/dL (1.3-3.2); Glucose 92 mg/dl (74-100); Potassium 3.6 mmoL/L (3.5-5.1); Sodium 141 mmol/L (136-145); Total Protein,Serum 5.7 g/dl (6.3-8.2)
[2023-03-13 08:00] VITALS: BP 138/67; PULSE 76; RESP 20; TEMP 36.6; O2SAT 94
--- NOTE | 2023-03-13 09:01 | EXP.DC.SUM ---
General Admission date:: 03/10/23 Discharge date: 03/13/23 HPI HPI HPI: The patient is a 73 year old female who presented to the ED on 03/10 w/ c/o cough and SOA. Patient stated she was unable to ambulate due to SOA and this was the first time this occurred. Patient was admitted for medical management of COPD exacerbation. Today the patient states she is feeling better, the cough has decreased, and is not using oxygen. Was given lasix again this A.M to reduce fluid overload and will continue levofloxacin to complete treatment for COPD exacerbation. Hospital Course Hospital Course Hospital Course: The patient presented to the ED on 03/10 with cough and SOA with ambulation. This was the first time the patient had this occur to her. She recently had COVID two months prior and has c/o cough since. She was admitted medically from the ED to the medical floor for an COPD exacerbation and started on antibiotics, DuoNebs, Mucinex 1200, and prednisone 40mg daily. On 03/11 antibotics were held due to concerns for virus vs. infections. Chest physiotherapy was started and patient was + over 5L. 03/12 Lasix given to decrease fluid overload. Chest Xray shows Opacity in left base and a small left pleural effusion. Levaquin restarted to complete total course of antibotic coverage for COPD exacerbation. Benzonatate 100mg added for assistance with coughing sensation. Lasix pulled off additional fluid overload. Pt's fluid balance now is -1L in the past 24hrs. Patient received an additional Lasix dose this A.M (03/13). The patient will be discharged home with antibiotics, steroids, and pulmonary follow up in two weeks. She will be provided 3 days of oral Levaquin, 1 day of prednisone 40mg once daily, and 3 days of oral Lasix 40mg daily. The patient is comfortable, able to use restroom without help or use of oxygen. Cough has decreased and patient lungs sounds have improved. She agrees with discharge plan and feels safe to leave the hospital. Rounded on patient with nurse practitioner. Personally examined and interviewed patient. Agree with exam findings and care plan as documented. Exam Data for Last 24 hours Vital signs and Labs for Last 24 Hours: Temp Pulse Resp BP Pulse Ox FiO2 97.9 F 76 20 138/67 94 L 28 03/13/23 08:00 03/13/23 08:00 03/13/23 08:00 03/13/23 08:00 03/13/23 08:00 03/11/23 18:17 Laboratory Results - last 24 hr 03/11/23 05:29: Chlamy pneumoniae PCR Not detected, Adenovirus (PCR) Not detected, B. pertussis DNA (PCR) Not detected, Coronavirus OC43 (PCR) Not detected, Coronavirus HKU1 (PCR) Not detected, Coronavirus 229E (PCR) Not detected, SARS-CoV-2 (PCR) Not detected, Coronavirus NL63 (PCR) Not detected, Human Metapneumovir PCR Not detected, Influenza A (H1) PCR Not detected, Influ A (H1N1/09) PCR Not detected, Influenza A (H3) PCR Not detected, Influenza Type A (PCR) Not detected, Influenza Type B (PCR) Not detected, M. pneumoniae (PCR) Not detected, Parainfluenza 1 (PCR) Not detected, Parainfluenza 2 (PCR) Not detected, Parainfluenza 3 (PCR) Not detected, Parainfluenza 4 (PCR) Not detected, RSV (PCR) Not detected, Entero/Rhino (PCR) Not detected 03/12/23 06:21: TSH 0.41 L 03/13/23 05:53: WBC 11.9 H, RBC 4.46, Hgb 13.1, Hct 41.4, MCV 92.8, MCH 29.3, MCHC 31.6 L, RDW 14.4, Plt Count 218, MPV 9.0, Neut % (Auto) 53.5, Lymph % (Auto) 39.2, [place] % (Auto) 6.3, Eos % (Auto) 0.6, Baso % (Auto) 0.4, Neut # (Auto) 6.3, Lymph # (Auto) 4.6 H, [place] # (Auto) 0.7, Eos # (Auto) 0.1, Baso # (Auto) 0.1 03/13/23 05:53: Sodium 141, Potassium 3.6, Chloride 104, Carbon Dioxide 31 H, Anion Gap 9.6, BUN 21 H D, Creatinine 0.50 L, Estimated Creat Clear 79, Estimated GFR 122, Est GFR ( Amer) 147, Glucose 92, Calcium 8.3 L, Total Bilirubin 0.4, AST 28, ALT 24, Alkaline Phosphatase 69, Total Protein 5.7 L, Albumin 3.4 L, Globulin 2.3, Albumin/Globulin Ratio 1.5 I & O for Last 24 hours: Intake & Output 03/10/23 03/11/23 03/12/23 03/13/23 23:59 23:59 23:
--- NOTE | 2023-03-13 09:50 | EXP.PULM.CON ---
History of Present Illness History of present illness: Ms. Pugh is a 73-year-old female greater than [id number] smoking history history of COPD presented to the hospital with worsening respiratory distress new oxygen requirement found to be in COPD exacerbation, Pneumonia with volume overload initiation of nebulization therapies, steroids and levofloxacin pulmonary was called for further evaluation. [facility] Disclaimer: The information contained in this section may have been updated after the patient was seen, as this information can be updated by other users. Medical History (Updated 03/13/23 @ 11:02 by [place] MD) COPD (chronic obstructive pulmonary disease) COPD exacerbation Dyspnea on exertion Family history of asthma Hypothyroidism (acquired) Pneumonia Pulmonary emphysema Screening for lung cancer Seasonal allergic rhinitis Smoking greater than 30 pack years Tobacco abuse counseling Tobacco abuse disorder Surgical History History of arthroscopic knee surgery History of tonsillectomy Family History Other Alcoholism Coronary artery disease Diabetes Hyperlipidemia Hypertension Substance abuse Thyroid disorder Social History Smoking Status: Current every day smoker tobacco type: cigarettes packs per day: 1 second hand exposure: Yes alcohol intake: current substance use type: denies use current occupational status: employed Travel in the last 8 weeks: None household members: family housing: house 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 Review of Systems Constitutional Constitutional: Reports fatigue Eyes Eyes: Denies eye discharge, Denies dry eyes, Denies irritation and Denies itchy eyes ENT Ears, Nose, Mouth, and Throat: Denies epistaxis, Denies facial pain, Denies lip swelling and Denies throat swelling *Cardiovascular Cardiovascular: Reports dyspnea and Reports dyspnea on exertion *Respiratory Respiratory: Reports chest congestion, Reports cough, Reports dyspnea, Reports dyspnea on exertion, Reports excessive phlegm production and Reports wheezing *Gastrointestinal Gastrointestinal: Denies abdominal pain, Denies belching and Denies cramping *Musculoskeletal Musculoskeletal: Reports back pain, Reports myalgias and Reports other (No small joint swelling or Pain) *Neurologic Neurologic: Reports system reviewed and no additional complaints, except as documented Psychiatric Psychiatric: Denies homicidal ideation and Denies suicidal ideation Endocrine Endocrine: Reports fatigue and Denies heat intolerance Hematologic/Lymphatic Hematologic/Lymphatic: Denies easy bleeding and Denies lymphadenopathy Allergic/Immunologic Allergic/Immunologic: Denies itchy eyes, Denies lip swelling, Denies throat swelling and Reports wheezing Pulmonology Exam Inpatient Vital signs and Labs for Last 24 Hours: Temp Pulse Resp BP Pulse Ox FiO2 97.9 F 76 20 138/67 94 L 28 03/13/23 08:00 03/13/23 08:00 03/13/23 08:00 03/13/23 08:00 03/13/23 08:00 03/11/23 18:17 Laboratory Results - last 24 hr 03/11/23 05:29: Chlamy pneumoniae PCR Not detected, Adenovirus (PCR) Not detected, B. pertussis DNA (PCR) Not detected, Coronavirus OC43 (PCR) Not detected, Coronavirus HKU1 (PCR) Not detected, Coronavirus 229E (PCR) Not detected, SARS-CoV-2 (PCR) Not detected, Coronavirus NL63 (PCR) Not detected, Human Metapneumovir PCR Not detected, Influenza A (H1) PCR Not detected, Influ A (H1N1/09) PCR Not detected, Influenza A (H3) PCR Not detected, Influenza Type A (PCR) Not detected, Influenza Type B (PCR) Not detected, M. pneumoniae (PCR) Not detected, Parainfluenza 1 (PCR) Not detected, Parainfluenza 2 (PCR) Not detected, Parainfluenza 3 (PCR) Not detected, Parainfluenza 4 (PCR) Not detected, RSV (PCR) Not detected, Entero/Rhino (PCR) Not detected 05
--- NOTE | 2023-03-13 10:40 | EXP.DC.SUM ---
General Admission date:: 03/10/23 HPI HPI HPI: The patient is a 73 year old female who presented to the ED on 03/10 w/ c/o cough and SOA. Patient stated she was unable to ambulate due to SOA and this was the first time this occurred. Patient was admitted for medical management of COPD exacerbation. Today the patient states she is feeling better, the cough has decreased, and is not using oxygen. Was given lasix again this A.M to reduce fluid overload and will continue levofloxacin to complete treatment for COPD exacerbation. Exam Data for Last 24 hours Vital signs and Labs for Last 24 Hours: Temp Pulse Resp BP Pulse Ox FiO2 97.9 F 76 20 138/67 94 L 28 03/13/23 08:00 03/13/23 08:00 03/13/23 08:00 03/13/23 08:00 03/13/23 08:00 03/11/23 18:17 Laboratory Results - last 24 hr 03/11/23 08:10: RSV Nasal Swab Negative 03/12/23 06:21: TSH 0.41 L 03/13/23 05:53: WBC 11.9 H, RBC 4.46, Hgb 13.1, Hct 41.4, MCV 92.8, MCH 29.3, MCHC 31.6 L, RDW 14.4, Plt Count 218, MPV 9.0, Neut % (Auto) 53.5, Lymph % (Auto) 39.2, [place] % (Auto) 6.3, Eos % (Auto) 0.6, Baso % (Auto) 0.4, Neut # (Auto) 6.3, Lymph # (Auto) 4.6 H, [place] # (Auto) 0.7, Eos # (Auto) 0.1, Baso # (Auto) 0.1 03/13/23 05:53: Sodium 141, Potassium 3.6, Chloride 104, Carbon Dioxide 31 H, Anion Gap 9.6, BUN 21 H D, Creatinine 0.50 L, Estimated Creat Clear 79, Estimated GFR 122, Est GFR ( Amer) 147, Glucose 92, Calcium 8.3 L, Total Bilirubin 0.4, AST 28, ALT 24, Alkaline Phosphatase 69, Total Protein 5.7 L, Albumin 3.4 L, Globulin 2.3, Albumin/Globulin Ratio 1.5 I & O for Last 24 hours: Intake & Output 03/10/23 03/11/23 03/12/23 03/13/23 23:59 23:59 23:59 23:59 Intake Total 3462 / 4562 5558 / 5558 960 / 960 240 / 240 Output Total 200 / 200 200 / 300 2200 / 2200 900 / 900 Balance 3262 / 4362 5358 / 5258 -1240 / -1240 -660 / -660 Weight 92.85 kg 92.487 kg 100.607 kg 97.267 kg Microbiology Reports for the Last 24 Hours: Microbiology 03/09/23 03:20 Sputum - Expectorated Sputum Gram Stain - Final 03/09/23 03:20 Sputum - Expectorated Sputum Sputum Culture - Final Normal Respiratory [place] Results Data Completed and Pending Labs on day of discharge: Labs from last 24 hours 03/13/23 03/13/23 03/12/23 05:53 05:53 06:21 WBC 11.9 H RBC 4.46 Hgb 13.1 Hct 41.4 MCV 92.8 MCH 29.3 MCHC 31.6 L RDW 14.4 Plt Count 218 MPV 9.0 Neut % (Auto) 53.5 Lymph % (Auto) 39.2 [place] % (Auto) 6.3 Eos % (Auto) 0.6 Baso % (Auto) 0.4 Neut # (Auto) 6.3 Lymph # (Auto) 4.6 H [place] # (Auto) 0.7 Eos # (Auto) 0.1 Baso # (Auto) 0.1 Sodium 141 Potassium 3.6 Chloride 104 Carbon Dioxide 31 H Anion Gap 9.6 BUN 21 H D Creatinine 0.50 L Estimated Creat Clear 79 Estimated GFR 122 Est GFR ( Amer) 147 Glucose 92 Calcium 8.3 L Total Bilirubin 0.4 AST 28 ALT 24 Alkaline Phosphatase 69 Total Protein 5.7 L Albumin 3.4 L Globulin 2.3 Albumin/Globulin Ratio 1.5 TSH 0.41 L RSV Nasal Swab 03/11/23 08:10 WBC RBC Hgb Hct MCV MCH MCHC RDW Plt Count MPV Neut % (Auto) Lymph % (Auto) [place] % (Auto) Eos % (Auto) Baso % (Auto) Neut # (Auto) Lymph # (Auto) [place] # (Auto) Eos # (Auto) Baso # (Auto) Sodium Potassium Chloride Carbon Dioxide Anion Gap BUN Creatinine Estimated Creat Clear Estimated GFR Est GFR ( Amer) Glucose Calcium Total Bilirubin AST ALT Alkaline Phosphatase Total Protein Albumin Globulin Albumin/Globulin Ratio TSH RSV Nasal Swab Negative Preliminary micro results at discharge 03/09/23 22:55 Blood Culture - Preliminary Blood NO GROWTH AFTER 48 HOURS 03/09/23 22:55 Blood Culture - Preliminary Blood NO GROWTH AFTER 48 HOURS DS: Diagnosis Discharge Diagnosis (1) COPD with acute exacerbation: Status:
--- NOTE | 2023-03-13 11:28 | HMH.PHAINT1 ---
Pharmacy Intervention Comments: Discharge medication counseling completed. Patient was starting the following new meds: -benzonatate: 100 mg q6h prn. Explained that this was to help stop a cough and only to take it as needed. -levofloxacin: 750mg x 3 days. Told of potential side effects of stomach upset and/or diarrhea and said to take medication with food to help avoid this. -furosemide: 40 mg x 3 days. Told patient to take this in the morning to avoid having to get up to urinate during the night. -prednisone: 20mg x 1 day. Told patient to take this in the morning as well to avoid insomnia and other side effects were unlikely as only one dose was being sent in for her. Patient verbalized understanding and had no questions.
[2023-03-13 11:45] VITALS: PULSE 71; PULSE 73
--- NOTE | 2023-03-14 12:33 | CARE MANAGER ---
Contacted patient related to hospital discharge. She received all her medications. She states she did cough for four hours last night. She is moving more today and feels slightly better. Denies questions or concerns. MATTI Pat
== END 2023-03-13 12:22 | disposition home or self-care (01) | DRG 190 ==
LOC: ER 22:53 → 2ND 03-10 02:06
PROVIDERS: Internal Medicine Adolescent Medicine; Nurse Practitioner Critical Care Medicine; Nurse Practitioner Family; Admitting Provider Student in an Organized Health Care Education/Training Program; Emergency Provider Emergency Medicine; PCP Emergency Medicine; Visit Provider Student in an Organized Health Care Education/Training Program
DX: J43.9 Emphysema, unspecified (principal); J18.9 Pneumonia, unspecified organism; Z86.16 Personal history of COVID-19; F17.210 Nicotine dependence, cigarettes, uncomplicated; Z71.6 Tobacco abuse counseling
CPT/HCPCS: 36415; 71045; 71046; 80053; 82803; 83605; 83735; 83880; 84145; 84443; 84484; 85025; 87040; 87070; 87205; 87581; 87632; 87636; 87798; 87807; 93005; 93306; 94640; 99285; C9803; J0456; J0696; J1956; U0003; U0005

== ENCOUNTER → 2023-05-15 14:13 | Outpatient (CLI) | payer BC, SELFPAY ==
--- NOTE | 2023-05-15 14:17 | CT_ITS ---
FINAL REPORT CLINICAL HISTORY: lung cancer screening SMOKES 1/2 PK PER DAY X 45 YRS COPD COMPARISON: April 21, 2022 FINDINGS: Low-Dose Chest CT CTDI vol (mGy): 2.90 DLP (mGy-cm): 117.50 Axial images were obtained from the lung apex to the mid abdomen by computed tomography. Low-dose protocol was utilized. FINDINGS: CHEST: There are multiple borderline size mediastinal and axillary lymph nodes that are stable from the prior exam. The heart is proper size. There is no pericardial or pleural effusion. Limited images of the upper abdomen are unremarkable. Lung window images demonstrate mild changes of emphysema with mild scarring. There are multiple calcified granulomas. There is a stable 3 mm nodule in the lateral left lower lobe on image 59. There is a stable 4 mm nodule in the posterior right upper lobe on image 32. There is no new mass or pulmonary nodule. IMPRESSION: Lung RADS category 2. Recommend 12 month follow-up low-dose chest CT. Reviewed, Interpreted and Dictated by Manoj Mesa III, MD Transcribed by Scout Francisco Authenticated and [facility]
== END ==
PROVIDERS: PCP Emergency Medicine; Visit Provider Internal Medicine Pulmonary Disease
DX: Z87.891 Personal history of nicotine dependence (principal); Z12.2 Encounter for screening for malignant neoplasm of respiratory organs; R06.02 Shortness of breath
CPT/HCPCS: 71271; 94060

== ENCOUNTER → 2023-06-20 11:06 | Outpatient (CLI) | payer BC, SELFPAY ==
--- NOTE | 2023-06-20 11:11 | XR_ITS ---
FINAL REPORT CLINICAL HISTORY: PNM COMPARISON: None FINDINGS: Two views of the chest were obtained. The heart size and pulmonary vascularity are within normal limits. The mediastinum is normal. There is mild bibasilar atelectasis or pneumonia. There is no pneumothorax. The bony thorax is intact. IMPRESSION: Mild bibasilar atelectasis or pneumonia. Reviewed, Interpreted and Dictated by Manoj Mesa III, MD Transcribed by Bianka Mccallum Authenticated and [facility]
== END ==
PROVIDERS: PCP Emergency Medicine; Visit Provider Internal Medicine Pulmonary Disease
DX: R06.02 Shortness of breath (principal)
CPT/HCPCS: 71046

== ENCOUNTER 2023-07-11 04:52 | Inpatient (IN) | payer BC, MEDICARE, SELFPAY ==
[2023-07-11] VITALS (14 sets, daily range): BP systolic 107–180; BP diastolic 54–90; PULSE 64–94; RESP 16–24; TEMP 36.4–36.8; O2SAT 87–98; BMI 36.0; BMI 35.2
--- NOTE | 2023-07-11 05:02 | ECG_ITS ---
APPROVED REPORT Exam: Resting ECG HR:69 bpm ECG Measurements Heart Rate 69 AXES WA 188 P 83 QRSd 101 QRS 78 QT 374 T 73 QTc 392 Conclusion SINUS RHYTHM WITH MARKED SINUS ARRHYTHMIA BORDERLINE ECG UNCONFIRMED REPORT Electronically signed by : Amilcar Tripathi MD 07/12/2023 17:20:37
--- NOTE | 2023-07-11 05:12 | XR_ITS ---
PROCEDURE INFORMATION: Exam: XR Chest Exam date and time: 07/11/2023 5:33 AM Age: 73 years old Clinical indication: Shortness of breath; Additional info: SOA, HX copd and recent pna TECHNIQUE: Imaging protocol: Radiologic exam of the chest. Views: 1 view. COMPARISON: CR XR CHEST 2V 06/20/2023 11:16 AM FINDINGS: Lungs: Unremarkable. No consolidation. Pleural spaces: Unremarkable. No pleural effusion. No pneumothorax. Heart/Mediastinum: Stable mild cardiomegaly. Bones/joints: Unremarkable. IMPRESSION: No acute findings.
--- NOTE | 2023-07-11 05:36 | HMH.EDGENADL ---
Discharge Plan Disposition Patient Disposition: Admitted Condition: Fair Prescriptions Prescriptions: No Action diphenhydramine HCl [Benadryl] 25 mg capsule 25 mg PO .q12hrs PRN (Reason: allergic reaction) Qty: 45 0RF dextromethorphan HBr 10 mg/5 mL liquid 10 mg PO Q6H PRN (Reason: cough) Qty: 118.3 0RF levalbuterol HCl 0.63 mg/3 mL solution for nebulization 0.63 mg inhalation Q6H PRN (Reason: shortness of breath or wheezing) Qty: 90 3RF albuterol sulfate 90 mcg/actuation HFA aerosol inhaler 2 inh inhalation QID PRN (Reason: shortness of breath or wheezing) 90 Days Qty: 8.5 2RF pantoprazole 40 mg tablet,delayed release (DR/EC) 40 mg PO DAILY levothyroxine 125 mcg tablet See Rx Instructions .ROUTE .COMPLEX Rx Instructions: Take 1 tablet by mouth once daily azelastine 137 mcg (0.1 %) aerosol,spray 1 spray intranasal BID Rx Instructions: administer into each nostril fluticasone propionate [Flonase Allergy Relief] 50 mcg/actuation spray,suspension 2 spray intranasal DAILY Rx Instructions: administer into each nostril Stiolto Respimat 2.5-2.5 mcg/actuation mist 2 puff inhalation DAILY Referrals Follow up/Referrals: Mich Dodge MD [Primary Care Provider] - See instructions Clinical Impressions Clinical Impression: Shortness of breath CHF (congestive heart failure) Qualifiers: Heart failure type: unspecified Heart failure chronicity: acute on chronic Qualified Code(s): I50.9 - Heart failure, unspecified Discharge ED Provider: Lisbet Moreland Adult [facility] General Chief complaint: Shortness of Breath/Dyspnea Stated complaint: SOA Time Seen by Provider: 07/11/23 05:25 Mode of Arrival: Family Vehicle Source of Information: Patient Limitations: No Limitations Description of Symptoms (Recalled from ER Triage Doc. by RN): 73 yo female presents with acute onset of dyspnea that occurred approx 4.5 hours ago. PMH: COPD,HTN,possibly CHF, hypothyroidism. States she took her prn inhaler without relief. Denies chest pain. States she was diagnosed with pneumonia 2 weeks ago and has been managed by the test hole driller here at the hospital. Patient states she has since finished all antibiotics and steroids and this came on all at once . Denies nausea. Continues to have a 'barking cough' History of Present Illness HPI narrative: This 73-year-old female with a history of COPD, hypertension, CHF, hypothyroid presents to the emergency department with concerns of shortness of breath. Patient denies any chest pain. Patient recently was diagnosed with pneumonia by pulmonology and was treated with antibiotics and steroids. Patient states this never improved her symptoms. Over the last 2 to 3 days she has had progressive worsening and around 1230 tonight she woke up with a smothering sensation. Patient does not wear oxygen at baseline but is requiring oxygen in the emergency department. She denies any new swelling in her legs. She does not have any history of blood clot. She has not had any chest pain. Patient states this feels similar to when she was hospitalized back in February and had fluid on the lungs. Related Data Home Medications Medication Instructions Recorded Confirmed azelastine 137 mcg (0.1 %) nasal 1 spray intranasal BID Nasal 07/11/23 07/11/23 spray aerosol Congestion fluticasone propionate 50 2 spray intranasal DAILY Allergy 07/11/23 07/11/23 mcg/actuation nasal Symptoms spray,suspension (Flonase Allergy Relief) levothyroxine 125 mcg tablet See Rx Instructions .Route 07/11/23 07/11/23 .COMPLEX thyroid pantoprazole 40 mg tablet,delayed 40 mg PO DAILY ppi 07/11/23 07/11/23 release tiotropium 2.5 mcg-olodaterol 2.5 2 puff inhalation DAILY Copd 07/11/23 07/11/23 mcg/actuation mist for inhalation (Stiolto Respimat) Previous Rx's Medication Instructions Recorded albuterol sulfate 90 mcg/actuation 2 inh inhalation QID PRN shor
--- NOTE | 2023-07-11 05:42 | PC.NURSE ---
Notified respiratory about VBG order, blood in lab
[2023-07-11 05:52] LABS: Basophils # 0.1 K/mm3 (0-0.2); Basophils % 0.6 % (0.1-2.0); Eosinophils # 0.7 K/mm3 (0.0-0.4); Eosinophils % 9.6 % (0.1-12.0); Hematocrit 48.9 % (37.0-47.0); Lymphocytes # 2.5 K/mm3 (0.7-4.5); Lymphocytes % 34.1 % (10-50); Mean Corpuscular HGB Conc 30.6 g/dL (31.8-35.4); Mean Corpuscular Hemoglobin 28.8 pg (27.0-31.2); Mean Corpuscular Volume 94.2 fl (81-99); Mean Platelet Volume 8.5 fl (7.4-10.4); Monocytes # 0.3 K/mm3 (0.1-1.0); Monocytes % 3.9 % (1.7-9.3); Neutrophils # 3.9 K/mm3 (1.8-7.8); Neutrophils % 51.8 % (37.0-80.0); Platelet Count 260 K/mm3 (142-424); Red Cell Distribution Width 13.7 % (11.5-17.5); White Blood Count 7.4 K/mm3 (4.8-10.8)
[2023-07-11 05:58] LABS: VBG Base Excess -0.2 mmol/L (-2.4-2.3); VBG HCO3 25.5 mmol/L (23-30); VBG Oxygen Saturation 86.1 % (50-70); VBG PH 7.34 mmol/L (7.31-7.41); VBG PO2 47.3 mmol/L (28-40)
[2023-07-11 05:58] LABS: Alanine Aminotransferase 33 U/L (12-78); Albumin Level 4.1 g/dl (3.5-5.0); Albumin/Globulin Ratio 1.5 (1.1-1.8); Alkaline Phosphatase 84 U/L (38-126); Anion Gap 11.4 mEq/L (5-15); Aspartate Amino Transferase 29 U/L (14-36); Bilirubin,Total 0.7 mg/dl (0.2-1.3); Blood Urea Nitrogen 14 mg/dl (7-17); Calcium 9.1 mg/dl (8.4-10.2); Carbon Dioxide 27 mmol/L (22.0-30.0); Chloride 106 mmol/L (98-107); Creatinine Clearance Estimated 78 mL/min (50-200); Estimated Glomerular Filt Rate 82 ml/min (>60); GFR (African American) 100 ML/MIN (>60); Globulin 2.8 g/dL (1.3-3.2); Glucose 130 mg/dl (74-100); Potassium 3.4 mmoL/L (3.5-5.1); Sodium 141 mmol/L (136-145); Total Protein,Serum 6.9 g/dl (6.3-8.2)
[2023-07-11 06:22] LABS: Troponin I < 0.01 ng/ml (0.00-0.034)
--- NOTE | 2023-07-11 07:00 | PC.NURSE ---
report given to marimar goss
--- NOTE | 2023-07-11 07:10 | PC.NURSE ---
report called to marimar rees
--- NOTE | 2023-07-11 07:19 | PC.NURSE ---
tech from [facility] here to get pt via wheelchair
--- NOTE | 2023-07-11 07:41 | EXP.HP ---
History of Present Illness *Admission Date: 07/11/23 *Reason for visit:: Chief complaint: Trouble breathing and croupy cough *History of present illness: This is a 73-year-old female that presents to [facility] ED with concerns of ongoing croupy cough and dyspnea at rest. Her past medical history significant for COPD Gold classification 2 with recent FEV1 58%. She continues with cigarette smoking. She has been evaluated in the outpatient scenario by her agricultural specialist. He has strongly recommended against tobacco dependence, offered therapies and performed a 6-minute walk test identifying no need for home O2. Recent CTA of the chest (May 2023) was consistent with emphysema. She recently completed an antibiotic and prednisone course as an outpatient. She presented to the ED with worsening croupy cough and associated dyspnea over the last few days. She denies associated fever, chills, hemoptysis, confusion or falls. She reports a dry croupy cough with no sputum production. Her [id number] Desirae is concerned with her significant snoring and sleep apnea. The patient reports previous conversations with her providers for a sleep study. In the ED her presenting oxygen saturation was 84% and it improved to 94% on 2 L via nasal cannula. She was afebrile with elevated blood pressures on initial assessment. Her CBC identifies a normal white blood cell count and preserved hemoglobin. Her electrolytes identify potassium 3.4 with normal creatinine and LFTs. An echocardiogram from February 2023 identified an EF of 60%. [facility] Medical History (Updated 07/11/23 @ 08:06 by Edson Cano MD) Allergic rhinitis CHF (congestive heart failure) COPD (chronic obstructive pulmonary disease) COPD exacerbation Diverticulitis Dyspnea on exertion Encounter for screening for malignant neoplasm of lung Family history of asthma Headache Hypothyroidism (acquired) Neuralgia Nodule of left lung Pneumonia Pulmonary emphysema Screening for lung cancer Seasonal allergic rhinitis Smoking greater than 30 pack years Tachycardia Tobacco abuse counseling Tobacco abuse disorder Surgical History History of arthroscopic knee surgery History of tonsillectomy Family History Other Alcoholism Coronary artery disease Diabetes Hyperlipidemia Hypertension Substance abuse Thyroid disorder Social History Smoking Status: Current some day smoker tobacco type: cigarettes packs per day: 1 smoking status stop date: may 2023 second hand exposure: Yes alcohol intake: never substance use type: denies use current occupational status: employed Travel in the last 8 weeks: None household members: family housing: house 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 Review of Systems Review of Systems Review of systems:: pertinent systems reviewed and negative unless documented below Constitutional Constitutional: Denies headache(s) and Denies weakness ENT Ears, Nose, Mouth, and Throat: Denies dizziness and Denies headache(s) Comments: Laryngitis *Respiratory Respiratory: Reports stridor and Reports wheezing Comments: Croupy nonproductive cough *Gastrointestinal Comments: No nausea vomiting or diarrhea *Musculoskeletal Musculoskeletal: Denies numbness and Denies tingling *Neurologic Neurologic: Denies dizziness, Denies headache(s), Denies numbness, Denies tingling and Denies weakness Allergic/Immunologic Allergic/Immunologic: Reports wheezing Meds Home Medications and Allergies Home Medications Medication Instructions Recorded Confirmed Type albuterol sulfate 90 mcg/actuation 2 inh inhalation QID PRN shortness 04/03/23 07/11/23 Rx aerosol inhaler of breath or wheezing 90 days #8.5 grams dextromethorphan HBr 10 mg/5 mL 10 mg (5 mL) PO Q6H PRN cough 07/03/23 07/11/23 Rx oral liquid #118.
[2023-07-11 07:54] LABS: NT Pro Brain Natriuretic Pep. 78.5 pg/mL (0-125)
--- NOTE | 2023-07-11 08:32 | HMH.PHAINT1 ---
Pharmacy Intervention Comments: MEDICATION RECONCILIATION COMPLETED ON PATIENT USING EXTERNAL FILL HISTORY FROM PHARMACY AND LIST FROM PULMONOLOGY OFFICE. -DONTE PRADOD
[2023-07-11 08:59] LABS: Troponin I < 0.01 ng/ml (0.00-0.034)
--- NOTE | 2023-07-11 09:14 | EXP.PULM.CON ---
History of Present Illness History of present illness: Ms. Pugh is a 73-year-old female history of stage II COPD following in pulmonary clinic recent experiencing nonresolving cough status post treatment antibiotics reviewed no review of symptoms completed treatment with CT chest without contrast modest within normal limits presented to the hospital with worsening respiratory distress and increasing oxygen requirements and pulmonary was called for further evaluation and management. [facility] Disclaimer: The information contained in this section may have been updated after the patient was seen, as this information can be updated by other users. Medical History (Updated 07/11/23 @ 12:10 by [place] MD) Acute respiratory failure with hypoxia Allergic rhinitis CHF (congestive heart failure) Chronic cough COPD (chronic obstructive pulmonary disease) COPD exacerbation Diverticulitis Dyspnea on exertion Encounter for screening for malignant neoplasm of lung Family history of asthma Headache Hypothyroidism (acquired) Neuralgia Nodule of left lung Pneumonia Pulmonary emphysema Screening for lung cancer Seasonal allergic rhinitis Smoking greater than 30 pack years Tachycardia Tobacco abuse counseling Tobacco abuse disorder Surgical History History of arthroscopic knee surgery History of tonsillectomy Family History Other Alcoholism Coronary artery disease Diabetes Hyperlipidemia Hypertension Substance abuse Thyroid disorder Social History (Updated 07/11/23 @ 07:43 by Pebbles Ayala, RN) Smoking Status: Current some day smoker tobacco type: cigarettes packs per day: 1 smoking status stop date: may 2023 second hand exposure: Yes alcohol intake: never substance use type: denies use current occupational status: employed Travel in the last 8 weeks: None household members: family housing: house 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 Review of Systems Constitutional Constitutional: Reports fatigue, Denies headache(s) and Denies weakness Eyes Eyes: Denies eye discharge, Denies dry eyes, Denies irritation and Denies itchy eyes ENT Ears, Nose, Mouth, and Throat: Denies dizziness, Denies headache(s), Denies lip swelling and Denies throat swelling *Cardiovascular Cardiovascular: Reports dyspnea and Reports dyspnea on exertion *Respiratory Respiratory: Reports chest congestion, Reports cough, Reports dyspnea, Reports dyspnea on exertion, Denies excessive phlegm production, Denies hemoptysis, Denies pain on inspiration and Denies wheezing *Gastrointestinal Gastrointestinal: Denies abdominal pain, Denies belching and Denies cramping *Musculoskeletal Musculoskeletal: Denies numbness and Denies tingling *Neurologic Neurologic: Denies dizziness, Denies headache(s), Denies numbness, Denies tingling and Denies weakness Psychiatric Psychiatric: Denies homicidal ideation and Denies suicidal ideation Endocrine Endocrine: Reports fatigue and Denies heat intolerance Hematologic/Lymphatic Hematologic/Lymphatic: Denies easy bleeding and Denies lymphadenopathy Allergic/Immunologic Allergic/Immunologic: Denies itchy eyes, Denies lip swelling, Denies throat swelling and Denies wheezing Pulmonology Exam Inpatient Vital signs and Labs for Last 24 Hours: Temp Pulse Resp BP Pulse Ox O2 Del Method O2 Flow Rate 97.7 F 90 16 109/61 L 95 Nasal Cannula 2 07/11/23 07:43 07/11/23 07:43 07/11/23 07:43 07/11/23 07:43 07/11/23 08:00 07/11/23 08:00 07/11/23 08:00 Laboratory Results - last 24 hr 07/11/23 05:00: WBC 7.4, RBC 5.20, Hgb 15.0, Hct 48.9 H, MCV 94.2, MCH 28.8, MCHC 30.6 L, RDW 13.7, Plt Count 260, MPV 8.5, Neut % (Auto) 51.8, Lymph % (Auto) 34.1, Hardin % (Auto) 3.9, Eos % (Auto) 9.6, Baso % (Auto) 0.6, Neut # (Auto) 3.9, Lymph # (Auto) 2.5, Hardin # (Auto) 0.3, Eos # (Auto) 0.7 H, Baso # (Auto) 0.1, Sodium
[2023-07-11 09:23] LABS: Coronavirus 19, PCR Not Detected (NotDetected); Influenza A, PCR Not Detected (NotDetected); Influenza B, PCR Not Detected (NotDetected)
[2023-07-11 09:41] LABS: D-Dimer 0.79 ug/mL (0.0-0.5)
[2023-07-11 12:05] LABS: Troponin I < 0.01 ng/ml (0.00-0.034)
--- NOTE | 2023-07-11 12:08 | CT_ITS ---
FINAL REPORT TECHNIQUE: Axial imaging of the chest is obtained after the administration of contrast. 3-D MIP reformatted images were also obtained and reviewed per PE protocol. CLINICAL HISTORY: Hypoxia COMPARISON: 05/15/2023 FINDINGS: The pulmonary arteries are well filled. There is no evidence of pulmonary embolus. There is no aortic dissection or intimal flap. There are small mediastinal lymph nodes. There is no hilar or axillary lymphadenopathy. There is emphysema with evidence of prior granulomatous disease. There is lingular atelectasis. The lungs are otherwise clear. There is no pleural or pericardial effusion. Limited evaluation of the upper abdomen is without acute abnormality. No acute osseous abnormality. IMPRESSION: No evidence of pulmonary embolism or aortic dissection. No acute intrathoracic abnormality. Reviewed, Interpreted and Dictated by Clarisa Go MD Transcribed by Nydia Ramirez Authenticated and [facility]
[2023-07-11 13:14] LABS: Strep Scrn Group A (Rapid) Negative (Negative)
--- NOTE | 2023-07-11 16:25 | PC.NURSE ---
pt new admit this shift. pt alert and oriented. pt ls diminished t/o. pt has dry, hacky cough. pt has been on 2LNC with sats in mid 's. pt abdomen soft, nontender. pt on cardiac diet. pt voiding per BSC d/t when she ambulates to the bathroom she becomes SOA. call light w/i reach.
[2023-07-12] VITALS: BP 107/54; PULSE 77; RESP 19; TEMP 36.9; O2SAT 92
[2023-07-12 04:00] VITALS: BP 116/53; PULSE 78; RESP 19; TEMP 36.4; O2SAT 91; BMI 35.1
--- NOTE | 2023-07-12 05:55 | PC.NURSE ---
Patient slept intermittently throughout shift. Remains on 2L NC with O2 sat 91-94%. Patient continues to have intermittently dry, hacking cough but medication per MAR has been effective.
[2023-07-12 06:12] VITALS: PULSE 85; PULSE 87; O2SAT 94
--- NOTE | 2023-07-12 06:30 | PC.NURSE ---
Patient weaned to 1L NC at this time.
[2023-07-12 06:46] LABS: Basophils % 0.1 % (0.1-2.0); Eosinophils # 0.1 K/mm3 (0.0-0.4); Eosinophils % 0.4 % (0.1-12.0); Hematocrit 48.4 % (37.0-47.0); Hemoglobin 15.7 g/dL (12.2-16.2); Lymphocytes # 1.5 K/mm3 (0.7-4.5); Lymphocytes % 10.7 % (10-50); Mean Corpuscular HGB Conc 32.4 g/dL (31.8-35.4); Mean Corpuscular Hemoglobin 29.7 pg (27.0-31.2); Mean Corpuscular Volume 91.6 fl (81-99); Mean Platelet Volume 9.3 fl (7.4-10.4); Monocytes # 0.2 K/mm3 (0.1-1.0); Monocytes % 1.6 % (1.7-9.3); Neutrophils # 11.8 K/mm3 (1.8-7.8); Neutrophils % 87.2 % (37.0-80.0); Platelet Count 277 K/mm3 (142-424); Red Blood Count 5.28 M/mm3 (4.20-5.40); Red Cell Distribution Width 13.8 % (11.5-17.5); White Blood Count 13.6 K/mm3 (4.8-10.8)
[2023-07-12 06:48] LABS: MANUAL DIFFERENTIAL MANUAL DIFFERENTIAL (MANUAL DIFF)
[2023-07-12 06:54] LABS: Anion Gap 15.2 mEq/L (5-15); Blood Urea Nitrogen 24 mg/dl (7-17); Calcium 9.9 mg/dl (8.4-10.2); Carbon Dioxide 26 mmol/L (22.0-30.0); Chloride 101 mmol/L (98-107); Creatinine Clearance Estimated 76 mL/min (50-200); Estimated Glomerular Filt Rate 71 ml/min (>60); GFR (African American) 86 ML/MIN (>60); Glucose 154 mg/dl (74-100); Potassium 4.2 mmoL/L (3.5-5.1); Sodium 138 mmol/L (136-145)
[2023-07-12 07:31] LABS: Free T4 (Free Thyroxine) 1.87 ng/dl (0.78-2.19)
[2023-07-12 08:00] VITALS: BP 118/87; PULSE 87; RESP 22; TEMP 36.7; O2SAT 92; O2SAT 95
--- NOTE | 2023-07-12 08:17 | EXP.DC.SUM ---
General Admission date:: 07/11/23 Discharge date: 07/12/23 HPI HPI HPI: This is a 73-year-old female that presents to [facility] ED with concerns of ongoing croupy cough and dyspnea at rest. Her past medical history significant for COPD Gold classification 2 with recent FEV1 58%. She continues with cigarette smoking. She has been evaluated in the outpatient scenario by her audio video technician. He has strongly recommended against tobacco dependence, offered therapies and performed a 6-minute walk test identifying no need for home O2. Recent CTA of the chest (May 2023) was consistent with emphysema. She recently completed an antibiotic and prednisone course as an outpatient. She presented to the ED with worsening croupy cough and associated dyspnea over the last few days. She denies associated fever, chills, hemoptysis, confusion or falls. She reports a dry croupy cough with no sputum production. Her [id number]-[id number] Desirae is concerned with her significant snoring and sleep apnea. The patient reports previous conversations with her providers for a sleep study. In the ED her presenting oxygen saturation was 84% and it improved to 94% on 2 L via nasal cannula. She was afebrile with elevated blood pressures on initial assessment. Her CBC identifies a normal white blood cell count and preserved hemoglobin. Her electrolytes identify potassium 3.4 with normal creatinine and LFTs. An echocardiogram from February 2023 identified an EF of 60%. 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 In the ED her presenting oxygenation was 84% on room air. She describes a significant croupy cough that is nonproductive with associated shortness of air at rest. Problems addressed as follows: Acute exacerbation of COPD BMI 35/OHS/JERONIMO/COPD overlap Tobacco dependence Pulse oximetry monitoring Oxygen therapy to maintain appropriate oxygen saturations Currently requiring 2 L via nasal cannula (no home O2) Recent outpatient 6-minute walk test with no oxygen requirements noted Repeat 6-minute walk test as inpatient Case management consult for home oxygen needs CT chest (May 2023) with emphysema identified CTA chest with no PE, pulmonary lesions or opacities Pulmonology consult Vangie/Dallin inhalation therapy Trelegy inhaler IV Solu-Medrol transition to oral prednisone on discharge Respiratory PCR Negative negative for COVID and influenza Trending labs and inflammatory markers with stability identified Nicotine replacement therapy Tobacco cessation education Acute on chronic HFpEF Telemetry monitoring Loop diuretic therapy Low-dose beta-antonio therapy ARB therapy SGLT2 inhibitor therapy Consideration for aldosterone antagonist pending BP evals Echocardiogram (February 2023) with EF 60% Left heart cath 2017 with no obstructive disease ED ECG ED troponin negative ED BNP noted Hypothyroidism TSH and free T4 Levothyroxine replacement therapy The patient identified improvement and inquired about discharge home. I have recommended an outpatient ENT evaluation for her laryngitis and chronic tobacco use history. I have recommended that she proceed with a sleep study and encouraged compliance with NIPPV therapy nightly. She is advised to continue follow-up with her audio video technician and vocational ed instructor in an outpatient setting. She should see her PCP in 1 week for repeat BMP. A 6-minute walk test was provided prior to discharge. Case management is assisting with discharge oxygen needs if she qualifies. She understands the importance of complete tobacco cessation to improve her health. I spent 35 minutes in [id number] time with the patient and nursing staff concerning the discharge process. We discussed the admitting diagnoses and hospital course. We discussed identified improvement and the patient's desire to be discharged.
[2023-07-12 08:58] LABS: Lymphocytes % 11 % (10-50); Monocytes % 1 % (2-9); Neutrophils % 88 % (42-76); Platelet Estimate Normal; RBC Morphology Normal; Total Cells Counted 100
--- NOTE | 2023-07-12 09:06 | EXP.PULM.PN ---
Subjective *Date: 07/12/23 *Time: 11:16 Interval history: No acute respiratory vents overnight. Continued to need oxygen commands at 2 L. Pulmonology Exam Inpatient Vital signs and Labs for Last 24 Hours: Temp Pulse Resp BP Pulse Ox O2 Del Method O2 Flow Rate 98.1 F 87 22 118/87 95 Nasal Cannula 1 07/12/23 08:00 07/12/23 08:00 07/12/23 08:00 07/12/23 08:00 07/12/23 08:00 07/12/23 08:00 07/12/23 08:00 Laboratory Results - last 24 hr 07/11/23 09:05: D-Dimer 0.79 H 07/11/23 09:15: SARS-CoV-2 (PCR) Not detected, Influenza A Untype (PCR) Not detected, Influenza Type B (PCR) Not detected 07/11/23 11:16: Troponin I < 0.01 07/11/23 12:49: Group A Strep Rapid Negative 07/12/23 06:29: WBC 13.6 H D, RBC 5.28, Hgb 15.7, Hct 48.4 H, MCV 91.6, MCH 29.7, MCHC 32.4, RDW 13.8, Plt Count 277, MPV 9.3, Neut % (Auto) 87.2 H, Lymph % (Auto) 10.7, Edmunds % (Auto) 1.6 L, Eos % (Auto) 0.4, Baso % (Auto) 0.1, Neut # (Auto) 11.8 H, Lymph # (Auto) 1.5, Edmunds # (Auto) 0.2, Eos # (Auto) 0.1, Baso # (Auto) 0.0, Total Counted 100, Neutrophils % (Manual) 88 H, Lymphocytes % (Manual) 11, Monocytes % (Manual) 1 L, Platelet Estimate Normal, RBC Morphology Normal, Sodium 138, Potassium 4.2 D, Chloride 101, Carbon Dioxide 26, Anion Gap 15.2 H, BUN 24 H D, Creatinine 0.80, Estimated Creat Clear 76, Estimated GFR 71, Est GFR ( Amer) 86, Glucose 154 H, Calcium 9.9, Magnesium 2.0, TSH 0.10 L, Free T4 1.87 I & O for Labs for Last 24 Hours: Intake & Output 07/09/23 07/10/23 07/11/23 07/12/23 23:59 23:59 23:59 23:59 Intake Total 870 / 1110 600 / 600 Output Total 0 / 0 0 / 0 Balance 870 / 1110 600 / 600 Weight 205 lb 4 oz 205 lb 8 oz Constitutional: Present moderate distress Head: Present normocephalic and atraumatic ENT: Present normal exam, normal oropharynx and mucous membranes moist Neck: Present normal inspection and full ROM Respiratory: Present respiratory distress, normal respiratory effort and able to speak in complete sentences; Absent prolonged expiratory phase, wheezes or diminished air movement Cardiac: Present S1/S2, Tachycardia and radial pulses present GI: Present soft and distention; Absent tenderness or guarding Rectal (female): Present deferred (female): Present deferred Skin: Present intact; Absent cyanosis or jaundice Neuro: Present alert, awake and oriented x 3 Extremities: Present normal inspection; Absent clubbing or cyanosis Psychiatric: Present normal affect and cooperative Assessment and Plan *Assessment and plan (1) Acute respiratory failure with hypoxia: Status: Acute Category: Medical Code(s): J96.01 - Acute respiratory failure with hypoxia (2) Chronic cough: Status: Acute Category: Medical Code(s): R05.3 - Chronic cough Plan Ms. Pugh is a 73-year-old female history of stage II COPD following in pulmonary clinic recent experiencing nonresolving cough status post treatment antibiotics reviewed no review of symptoms completed treatment with CT chest without contrast modest within normal limits presented to the hospital with worsening respiratory distress and increasing oxygen requirements and pulmonary was called for further evaluation and management. Upon further questioning patient states that her cough and where she will return to work however yesterday night she had this episode of cough that led to hypoxic event and did not need medications at present She called the EMS. Chest x-ray upon admission no significant airspace disease. No evidence of leukocytosis. Afebrile. Patient upon admission was initiated on methylprednisolone 60 every 8 hours along with DuoNebs every 6 and Pulmicort scheduled Interval update: CTA no evidence of pulmonary embolism. No acute pulmonary infiltrates to contribute for the noted cough. Rapid strep a antigen testing negative. No significant wheezing noted on auscultation. Continued receiving was recommended 2 L. 6-minute walk testing showe
[2023-07-12 11:03] VITALS: PULSE 71; PULSE 74; O2SAT 92
--- NOTE | 2023-07-12 13:10 | CARE MANAGER ---
Patient had a 6 minute walk test completed this am. Patient was 90% on room air at rest and dropped to 80% on room air with ambulation. Patient placed back on 2L supplemental O2 per NC and saturation rebounded to 92 %.
--- NOTE | 2023-07-16 14:22 | CARE MANAGER ---
Unable to reach patient via phone to discuss recent discharge. No VM option and call attempted x 2.
== END 2023-07-12 13:32 | disposition home or self-care (01) | DRG 189 ==
LOC: ER 06:57 → 2ND 09:04
PROVIDERS: Internal Medicine Pulmonary Disease; Admitting Provider Family Medicine; Emergency Provider Emergency Medicine; PCP Emergency Medicine; Visit Provider Family Medicine
DX: J96.01 Acute respiratory failure with hypoxia (principal); I50.32 Chronic diastolic (congestive) heart failure; J43.9 Emphysema, unspecified; E03.9 Hypothyroidism, unspecified; F17.210 Nicotine dependence, cigarettes, uncomplicated; R05.3 Chronic cough; I11.0 Hypertensive heart disease with heart failure; J04.0 Acute laryngitis
CPT/HCPCS: 36415; 71045; 71275; 80048; 80053; 82803; 83735; 83880; 84439; 84443; 84484; 85007; 85025; 85378; 87430; 87636; 93005; 94618; 94640; 94761; 99285; Q9967

== ENCOUNTER → 2023-07-19 14:13 | Outpatient (CLI) | payer BC, SELFPAY ==
[2023-07-19 20:44] LABS: Anion Gap 10.1 mEq/L (5-15); Blood Urea Nitrogen 41 mg/dl (7-17); Calcium 9.4 mg/dl (8.4-10.2); Carbon Dioxide 38 mmol/L (22.0-30.0); Chloride 96 mmol/L (98-107); Estimated Glomerular Filt Rate 71 ml/min (>60); GFR (African American) 86 ML/MIN (>60); Glucose 65 mg/dl (74-100); Potassium 4.1 mmoL/L (3.5-5.1); Sodium 140 mmol/L (136-145)
== END ==
PROVIDERS: PCP Nurse Practitioner Family; Visit Provider Nurse Practitioner Family
DX: E66.9 Obesity, unspecified (principal); Z68.35 Body mass index [BMI] 35.0-35.9, adult; E03.9 Hypothyroidism, unspecified; Z79.899 Other long term (current) drug therapy
CPT/HCPCS: 80048

== ENCOUNTER 2023-10-17 13:00 | Outpatient (CLI) | payer MEDICARE, SELFPAY ==
--- NOTE | 2023-10-17 13:12 | XR_ITS ---
FINAL REPORT CLINICAL HISTORY: Shortness of breath COMPARISON: 07/11/2023 FINDINGS: Two views of the chest were obtained. The heart size and pulmonary vascularity are within normal limits. The mediastinum is normal. No acute pulmonary abnormality is identified. The lungs are hyperinflated consistent with COPD. There is no pneumothorax. The bony thorax is intact. IMPRESSION: No acute cardiopulmonary disease. COPD. Reviewed, Interpreted and Dictated by Manoj Mesa III, MD Transcribed by Bianka Mccallum Authenticated and [facility]
== END 2023-10-17 23:59 ==
PROVIDERS: PCP Internal Medicine; Visit Provider Internal Medicine Pulmonary Disease
DX: R06.02 Shortness of breath (principal)
CPT/HCPCS: 71046

== ENCOUNTER 2023-11-08 10:02 | Outpatient (CLI) | payer MEDICARE, SELFPAY ==
--- NOTE | 2023-11-08 10:06 | XR_ITS ---
FINAL REPORT TECHNIQUE: Two views CLINICAL HISTORY: SOB, copd COMPARISON: 10/17/2023 FINDINGS: No acute pulmonary density is present. Mediastinal contour is normal. Heart size is stable. IMPRESSION: Stable chest exam without acute disease Reviewed, Interpreted and Dictated by Ash Lugo MD Transcribed by Amelia Stein Authenticated and [facility]
[2023-11-08 12:36] LABS: Basophils # 0.1 K/mm3 (0-0.2); Basophils % 1.2 % (0.1-2.0); Eosinophils # 0.6 K/mm3 (0.0-0.4); Hematocrit 49.5 % (37.0-47.0); Hemoglobin 16.1 g/dL (12.2-16.2); Lymphocytes # 2.9 K/mm3 (0.7-4.5); Mean Corpuscular HGB Conc 32.5 g/dL (31.8-35.4); Mean Corpuscular Hemoglobin 30.7 pg (27.0-31.2); Mean Corpuscular Volume 94.4 fl (81-99); Mean Platelet Volume 8.7 fl (7.4-10.4); Monocytes # 0.5 K/mm3 (0.1-1.0); Monocytes % 5.7 % (1.7-9.3); Neutrophils # 4.6 K/mm3 (1.8-7.8); Neutrophils % 53.1 % (37.0-80.0); Platelet Count 224 K/mm3 (142-424); Red Blood Count 5.24 M/mm3 (4.20-5.40); Red Cell Distribution Width 13.6 % (11.5-17.5); White Blood Count 8.7 K/mm3 (4.8-10.8)
[2023-11-12 16:12] LABS: D001-IgE D pteronyssinus <0.10 kU/L (Class 0); D002-IgE D farinae <0.10 kU/L (Class 0); E001-IgE Cat Dander 0.11 kU/L (Class 0/I); E005-IgE Dog Dander <0.10 kU/L (Class 0); E072-IgE Mouse Urine <0.10 kU/L (Class 0); G002-IgE Bermuda Grass <0.10 kU/L (Class 0); G006-IgE Timothy Grass <0.10 kU/L (Class 0); I006-IgE Cockroach, German <0.10 kU/L (Class 0); Immunoglobulin E, Total 215 IU/mL (6-495); M001-IgE Penicillium chrysogen <0.10 kU/L (Class 0); M002-IgE Cladosporium herbarum <0.10 kU/L (Class 0); M003-IgE Aspergillus fumigatus <0.10 kU/L (Class 0); M006-IgE Alternaria alternata <0.10 kU/L (Class 0); T001-IgE Maple/Box Elder <0.10 kU/L (Class 0); T006-IgE Cedar, Mountain <0.10 kU/L (Class 0); T007-IgE Oak, White <0.10 kU/L (Class 0); T008-IgE Elm, American <0.10 kU/L (Class 0); T010-IgE Walnut <0.10 kU/L (Class 0); T014-IgE Cottonwood <0.10 kU/L (Class 0); T022-IgE Pecan, Hickory <0.10 kU/L (Class 0); T070-IgE White Mulberry <0.10 kU/L (Class 0); W001-IgE Ragweed, Short <0.10 kU/L (Class 0); W011-IgE Thistle, Russian <0.10 kU/L (Class 0); W014-IgE Pigweed, Common <0.10 kU/L (Class 0); W018-IgE Sheep Sorrel <0.10 kU/L (Class 0)
== END 2023-11-08 23:59 ==
PROVIDERS: PCP Internal Medicine; Visit Provider Internal Medicine Pulmonary Disease
DX: R06.02 Shortness of breath (principal); J45.909 Unspecified asthma, uncomplicated
CPT/HCPCS: 36415; 71046; 82785; 85025; 86003

== ENCOUNTER 2024-02-13 12:58 | Outpatient (CLI) | payer MEDICARE, SELFPAY ==
--- NOTE | 2024-02-13 13:01 | XR_ITS ---
FINAL REPORT CLINICAL HISTORY: sob COMPARISON: None FINDINGS: No acute pulmonary density is evident. There is no evidence of effusion or other pleural disease. The mediastinum has a normal appearance. The cardiac silhouette is unremarkable. IMPRESSION: Unremarkable chest exam. Reviewed, Interpreted and Dictated by Ash Lugo MD Transcribed by Amelia Stein Authenticated and [facility]
== END 2024-02-13 23:59 | disposition home or self-care (01) ==
LOC: RAD 12:59
PROVIDERS: PCP Internal Medicine; Visit Provider Internal Medicine Pulmonary Disease
DX: R06.02 Shortness of breath (principal)
CPT/HCPCS: 71046

== ENCOUNTER 2024-04-11 14:16 | Observation (INO) | payer MEDICARE, SELFPAY ==
[2024-04-11] VITALS (12 sets, daily range): BP systolic 101–114; BP diastolic 39–52; PULSE 76–104; RESP 18; TEMP 36.6–36.7; O2SAT 93–99; BMI 34.7; BMI 35.9
--- NOTE | 2024-04-11 14:13 | ECG_ITS ---
APPROVED REPORT Exam: Resting ECG HR:85 bpm ECG Measurements Heart Rate 85 AXES FL 133 P 53 QRSd 93 QRS 76 QT 341 T 75 QTc 383 Conclusion SINUS RHYTHM NORMAL ECG Electronically signed by : NAILA CHUN, 04/11/2024 15:56:41
--- NOTE | 2024-04-11 14:21 | XR_ITS ---
FINAL REPORT CLINICAL HISTORY: cough, SOA COMPARISON: 02/13/2024 FINDINGS: No acute pulmonary opacity is present. There is no evidence of effusion or pneumothorax. Mediastinum is unremarkable. Heart size is normal. IMPRESSION: No acute abnormality. Reviewed, Interpreted and Dictated by Ash Lugo MD Transcribed by Nydia Ramirez Authenticated and [facility]
[2024-04-11 14:22] LABS: Coronavirus 19, PCR Not Detected (NotDetected); Influenza A, PCR Not Detected (NotDetected); Influenza B, PCR Not Detected (NotDetected)
[2024-04-11 14:34] LABS: Lactate Venous 1.8 mmol/L (0.4-2.0); VBG Base Excess 0.6 mmol/L (-2.4-2.3); VBG HCO3 26.4 mmol/L (23-30); VBG Oxygen Saturation 62.2 % (50-70); VBG PH 7.34 mmol/L (7.31-7.41); VBG PO2 27.6 mmol/L (28-40); VBG Total CO2 27.9 mmol/L (23-27)
[2024-04-11 14:38] LABS: VBG PCO2 50.1 mmol/L (35-51)
[2024-04-11 14:40] LABS: Chloride 104 mmol/L (98-107); Sodium 138 mmol/L (136-145)
[2024-04-11 14:42] LABS: Blood Urea Nitrogen 16 mg/dl (7-17); Creatinine Clearance Estimated 74 mL/min (50-200); Estimated Glomerular Filt Rate 82 ml/min (>60); GFR (African American) 100 ML/MIN (>60)
[2024-04-11 14:43] LABS: Alanine Aminotransferase 21 U/L (12-78); Albumin Level 3.9 g/dl (3.5-5.0); Albumin/Globulin Ratio 1.4 (1.1-1.8); Alkaline Phosphatase 86 U/L (38-126); Aspartate Amino Transferase 21 U/L (14-36); Bilirubin,Total 1.5 mg/dl (0.2-1.3); Calcium 9.2 mg/dl (8.4-10.2); Carbon Dioxide 30 mmol/L (22.0-30.0); Globulin 2.8 g/dL (1.3-3.2); Glucose 110 mg/dl (74-100); Total Protein,Serum 6.7 g/dl (6.3-8.2)
[2024-04-11 14:53] LABS: NT Pro Brain Natriuretic Pep. 119 pg/mL (0-125)
[2024-04-11 14:58] LABS: Troponin I < 0.01 ng/ml (0.00-0.034)
[2024-04-11] MEDS: ACETAMINOPHEN 500MG TAB 1000 MG PO (14:58)
[2024-04-11] MEDS: IPRATROPIUM/ALBUTEROL 3 ML NEB 9 ML IH (15:00)
[2024-04-11] MEDS: ONDANSETRON 4MG/2ML VIAL 4 MG IV (15:00)
[2024-04-11] MEDS: KETOROLAC 30MG/ML VIAL 15 MG IV (15:00)
[2024-04-11] MEDS: METHYLPREDNISOLONE SOD SUCC 125MG VIAL 125 MG IV (15:00)
--- NOTE | 2024-04-11 15:07 | [facility].EDCP ---
Discharge Plan Disposition Patient Disposition: Home, Self-Care Chief Complaint: Shortness of Breath/Dyspnea Prescriptions Prescriptions: New prednisone 50 mg tablet 50 mg PO DAILY 5 Days Qty: 5 0RF doxycycline hyclate 100 mg tablet 100 mg PO BID 7 Days Qty: 14 0RF ondansetron 4 mg tablet,disintegrating 4 mg PO Q8H PRN (Reason: nausea and vomiting) 4 Days Qty: 12 0RF No Action fluticasone propionate [Flonase Allergy Relief] 50 mcg/actuation spray,suspension 2 spray intranasal DAILY 90 Days Qty: 16 2RF Rx Instructions: administer into each nostril azelastine 137 mcg (0.1 %) aerosol,spray 2 spray intranasal HS 90 Days Qty: 30 2RF Rx Instructions: administer into each nostril ipratropium-albuterol 0.5 mg-3 mg(2.5 mg base)/3 mL solution for nebulization 3 ml inhalation QID PRN (Reason: shortness of breath or wheezing) 90 Days Qty: 270 3RF montelukast 10 mg tablet 10 mg PO QPM 90 Days Qty: 90 2RF Fasenra Pen 30 mg/mL auto-injector 30 mg SQ Q4W Qty: 1 2RF Rx Instructions: 30 mg administered once every 4 weeks for the first 3 doses, and then once every 8 weeks thereafter by subcutaneous injection albuterol sulfate 90 mcg/actuation HFA aerosol inhaler See Rx Instructions .ROUTE .COMPLEX Qty: 9 0RF Dose Instruction: INHALE 2 PUFFS BY MOUTH 4 TIMES DAILY NEEDED FOR SHORTNESS OF BREATH FOR WHEEZING Rx Instructions: INHALE 2 PUFFS BY MOUTH 4 TIMES DAILY NEEDED FOR SHORTNESS OF BREATH FOR WHEEZING [facility] 160-9-4.8 mcg/actuation HFA aerosol inhaler 2 inh inhalation BID 90 Days Qty: 10.7 3RF famotidine 20 mg tablet See Rx Instructions .ROUTE .COMPLEX Qty: 120 0RF Dose Instruction: Take 2 tablets by mouth twice daily Rx Instructions: Take 2 tablets by mouth twice daily prednisone 20 mg tablet See Rx Instructions .Route .COMPLEX Qty: 20 0RF Rx Instructions: Take 40mg (2 tab) oral once daily, followed by 20mg(one tab) oral once daily for 5 days followed 10 mg (1/2 tab) oral daily for 5 days and then stop taking prednisone. levothyroxine 125 mcg tablet See Rx Instructions .ROUTE .COMPLEX Qty: 90 0RF Dose Instruction: TAKE 1 TABLET BY MOUTH ONCE DAILY AT 7 AM Rx Instructions: TAKE 1 TABLET BY MOUTH ONCE DAILY AT 7 AM Referrals Follow up/Referrals: Tony Augustine DO [Primary Care Provider] - See instructions Activity Restrictions/Add. Instructions Additional Instructions/Restrictions: You were evaluated in the emergency department today. Please picking tech your prescriptions at the pharmacy and take them as prescribed. 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 Return to the emergency department for new or worsening symptoms. Clinical Impressions Clinical Impression: Acute exacerbation of chronic obstructive pulmonary disease Instructions Patient Instructions: DI for Chronic Obstructive Pulmonary Disease, DI for Vomiting -- Adult Discharge ED Provider: Sebastian Estrella HPI <Vivian Francis DO - Last Filed: 04/11/24 15:11> General Chief Complaint: Shortness of Breath/Dyspnea Stated Complaint: SHORTNESS OF BREATH Time Seen by Provider: 04/11/24 14:20 Mode of Arrival: EMS Source of Information: Patient Limitations: No Limitations Description of Symptoms (Recalled from ER Triage Doc. by RN): pt presents to ED with c/o shorntess of air. pt reports symptoms began yesterday. pt reports symptoms worse with excertion. History of Present Illness HPI narrative: This patient is a 74-year-old female with a history of COPD intermittently on home oxygen, pulmonary emphysema, tobacco abuse, hypothyroidism presenting to the emergency department for evaluation with concern for fever, chills, cough, body aches, nausea, and vomiting that started yesterday. She notes that this feels similar to episodes of pneumonia in the past. Symptoms are worse with exertion. She has had to wear her home oxygen at home since last night. No significant abdominal pain, changes in bowel movements, urinary symptoms, or other concerns noted. She does note some bilateral chest pain that seems to be worse with coughing. She came in by EMS who noted that she was stable en route. Related Data Previous Rx's Medication Instructions Recorded azelastine 137 mcg (0.1 %) nasal 2 spray intranasal HS 90 days #30 10/17/23 spray aerosol mL fluticasone propionate 50 2 spray intranasal DAILY 90 days 10/17/23 mcg/actuation nasal #16 grams spray,suspension (Flonase Allergy Relief) ipratropium 0.5 mg-albuterol 3 mg 3 ml inhalation QID PRN shortness 10/17/23 (2.5 mg base)/3 mL nebulization of breath or wheezing 90 days #270 soln mL albuterol sulfate 90 mcg/actuation See Rx Instructions .Route 01/21/24 aerosol inhaler .COMPLEX #9 grams benralizumab 30 mg/mL subcutaneous 30 mg SQ Q4W #1 mL 02/13/24 auto-injector (Fasenra Pen) montelukast 10 mg tablet 10 mg PO QPM 90 days #90 tabs 02/13/24 budesonide 160 mcg-glycopyr 9 2 inh inhalation BID 90 days #10.7 03/11/24 mcg-formot 4.8 mcg/actuation HFA grams inhaler (Breztri Aerosphere) famotidine 20 mg tablet See Rx Instructions .Route 03/24/24 .COMPLEX #120 tabs prednisone 20 mg tablet See Rx Instructions .Route 03/27/24 .COMPLEX #20 tabs levothyroxine 125 mcg tablet See Rx Instructions .Route 04/02/24 .COMPLEX #90 tabs doxycycline hyclate 100 mg tablet 100 mg PO BID 7 days #14 tabs 04/11/24 ondansetron 4 mg disintegrating 4 mg PO Q8H PRN nausea and 04/11/24 tablet vomiting 4 days #12 tabs prednisone 50 mg tablet 50 mg PO DAILY 5 days #5 tabs 04/11/24 Allergies Allergy/AdvReac Type Severity Reaction Status Date / Time Penicillins Allergy Verified 02/13/24 13:54 [facility] <Vivian Francis DO - Last Filed: 04/11/24 15:11> [facility] Disclaimer: The information contained in this section may have been updated after the patient was seen, as this information can be updated by other users. Medical History (Updated 04/11/24 @ 14:56 by Vivian Francis DO) Asthma exacerbation Eosinophilia Asthma GERD (gastroesophageal reflux disease) Impacted cerumen of right ear Impacted cerumen of right ear Hoarseness Chronic cough Acute respiratory failure with hypoxia CHF (congestive heart failure) Tachycardia Nodule of left lung Allergic rhinitis Encounter for screening for malignant neoplasm of lung Pneumonia COPD exacerbation Neuralgia Headache Seasonal allergic rhinitis COPD (chronic obstructive pulmonary disease) Screening for lung cancer Pulmonary emphysema Smoking greater than 30 pack years Tobacco abuse disorder Family history of asthma Dyspnea on exertion Tobacco abuse counseling Hypothyroidism (acquired) Diverticulitis Surgical History History of tonsillectomy History of arthroscopic knee surgery Family History Other Alcoholism Coronary artery disease Diabetes Hyperlipidemia Hypertension Substance abuse Thyroid disorder Social History (Updated 02/13/24 @ 13:55 by Yumiko Fox) Smoking Status: Former smoker tobacco type: cigarettes packs per day: 1 smoking status stop date: may 2023 second hand exposure: Yes alcohol intake: never substance use type: denies use current occupational status: employed Travel in the last 8 weeks: Inside the [place] household members: family housing: house 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 <Vivian Francis DO - Last Filed: 04/11/24 15:11> ROS Obtained: Yes All systems reviewed & no additional complaints except as documented Physical Exam <Vivian Francis DO - Last Filed: 04/11/24 15:11> General General appearance: alert and in no apparent distress Comment: Tired and uncomfortable appearing Head Head exam: atraumatic and normocephalic Eye Eye exam: Present normal appearance, PERRL and EOMI ENT ENT exam: Present normal exam, normal oropharynx, mucous membranes moist and normal external ear exam Neck Neck exam: Present normal inspection, full ROM and trachea midline; Absent tenderness Chest Chest inspection: Present normal inspection and symmetric chest wall rise; Absent tenderness Respiratory Respiratory exam: Present wheezes, accessory muscle use and prolonged expiratory phase; Absent respiratory distress or stridor Cardiovascular Cardiovascular exam: Present regular rate and normal rhythm Abdominal Exam Abdominal exam: Present soft; Absent distention, tenderness or guarding Extremities Exam Extremities exam: Present normal inspection, full ROM and normal capillary refill; Absent tenderness or edema Back Exam Back exam: Present normal inspection and full ROM; Absent tenderness Neurological Exam Neurological exam: Present alert, oriented X3, CN II-XII intact and normal gait; Absent motor sensory deficit Psychiatric Psychiatric exam: Present normal affect and normal mood Skin Skin exam: Present warm and dry HEART Score <DO Rosalva Benito Last Filed: 04/11/24 15:11> HEART Score HEART Score assessment performed?: Yes History (anamnesis): Slightly suspicious ECG: Normal Age: >65 years Risk factors: 1-2 risk factors Troponin: </= normal limit HEART Score: 3 <Sebastian Estrella MD - Last Filed: 04/11/24 16:09> HEART Score HEART Score: 3 Critical Care <Vivian Francis DO - Last Filed: 04/11/24 15:11> Critical Care Time Critical Care Time: No Medical Decision Making <Vivian Francis DO - Last Filed: 04/11/24 15:11> Terrance Inquiry Pt receiving controlled substance: No Vital Signs Vital Signs: 04/11/24 14:16 04/11/24 14:23 04/11/24 15:00 Temperature 97.9 F Temperature Source Oral Pulse Rate 76 Pulse Rate [Left Radial] 80 Respiratory Rate 18 Blood Pressure 103/45 L 107/51 L Blood Pressure [Right Arm] 103/45 L Blood Pressure Mean Blood Pressure Mean [Right Arm] 64 02 Sat by Pulse Oximetry 95 99 Oxygen Delivery Method Nasal Cannula Room Air Oxygen Flow Rate (LPM) 2 04/11/24 15:30 04/11/24 16:00 Temperature Temperature Source Pulse Rate 93 H 104 H Pulse Rate [Left Radial] Respiratory Rate Blood Pressure 109/40 L 102/39 L Blood Pressure [Right Arm] Blood Pressure Mean 61 51 Blood Pressure Mean [Right Arm] 02 Sat by Pulse Oximetry 97 96 Oxygen Delivery Method Nasal Cannula Nasal Cannula Oxygen Flow Rate (LPM) 2 2 Lab Data Labs: Lab Results 04/11/24 14:15: SARS-CoV-2 (PCR) Not detected, Influenza A Untype (PCR) Not detected, Influenza Type B (PCR) Not detected 04/11/24 14:24: VBG pH 7.34, VBG pCO2 50.1, VBG pO2 27.6 L, VBG HCO3 26.4, VBG Total CO2 27.9 H, VBG O2 Saturation 62.2, VBG Base Excess 0.6, VBG Lactic Acid 1.8 04/11/24 14:30: WBC 17.7 H, RBC 4.88, Hgb 15.0, Hct 45.6, MCV 93.3, MCH 30.8, MCHC 33.0, RDW 14.0, Plt Count 223, MPV 8.8, Neut % (Auto) 79.6, Lymph % (Auto) 13.6, [place] % (Auto) 4.6, Eos % (Auto) 1.6, Baso % (Auto) 0.7, Neut # (Auto) 14.1 H, Lymph # (Auto) 2.4, [place] # (Auto) 0.8, Eos # (Auto) 0.3, Baso # (Auto) 0.1, Sodium 138, Potassium 4.0, Chloride 104, Carbon Dioxide 30, Anion Gap 8.0, BUN 16, Creatinine 0.70, Estimated Creat Clear 74, Estimated GFR 82, Est GFR ( Amer) 100, Glucose 110 H, Calcium 9.2, Total Bilirubin 1.5 H, AST 21, ALT 21, Alkaline Phosphatase 86, Troponin I < 0.01, NT-Pro-B Natriuret Pep 119, Total Protein 6.7, Albumin 3.9, Globulin 2.8, Albumin/Globulin Ratio 1.4 04/11/24 14:30 04/11/24 14:30 Response Orders (Tests/Meds): ED MEDICATIONS Discontinued Medications Generic Name Dose Route Start Last Admin Trade Name Fidel PRN Reason Stop Dose Admin Acetaminophen 1,000 mg 04/11/24 14:31 04/11/24 14:58 Acetaminophen 500mg Tab PO 04/11/24 14:32 1,000 mg ONCE ONE Administration Albuterol/Ipratropium 9 ml 04/11/24 14:31 04/11/24 15:00 Ipratropium/Albuterol 3 Ml Neb IH 04/11/24 14:32 9 ml ONCE ONE Administration Doxycycline Hyclate 100 mg 04/11/24 14:49 04/11/24 15:31 Doxycycline Hycl 100 Mg Tablet PO 04/11/24 14:50 100 mg ONCE ONE Administration Ketorolac Tromethamine 15 mg 04/11/24 14:31 04/11/24 15:00 Ketorolac 30mg/Ml Vial IV 04/11/24 14:32 15 mg ONCE ONE Administration Methylprednisolone Sodium Succinate 125 mg 04/11/24 14:31 04/11/24 15:00 Methylprednisolone Sod Succ 125mg Vial IV 04/11/24 14:32 125 mg ONCE ONE Administration Ondansetron HCl 4 mg 04/11/24 14:31 04/11/24 15:00 Ondansetron 4mg/2ml Vial IV 04/11/24 14:32 4 mg ONCE ONE Administration ORDERS Category Date Time Status XR chest portable Stat Exams 04/11/24 14:21 Completed BNP [NT Pro Brain Natriuretic Pep.] Stat Lab 04/11/24 14:30 Results Complete Blood Count Auto Diff Stat Lab 04/11/24 14:30 Results Comprehensive Metabolic Panel Stat Lab 04/11/24 14:30 Results Rapid PCR Covid and Flu A/B Stat Lab 04/11/24 14:15 Completed T4 (Thyroxine) Stat Lab 04/11/24 14:30 Results TSH [Thyroid Stimulating Hormone] Stat Lab 04/11/24 14:30 Results Trop I [Troponin I] Stat Lab 04/11/24 14:30 Results Troponin I Q3H Lab 04/11/24 17:45 Ordered Troponin I Q3H Lab 04/11/24 20:45 Ordered VBG [Venous Blood Gas] Stat RT 04/11/24 14:24 Completed ECG Data Tracing #1: Attestation: I reviewed this ECG and interpreted as documented below: ECG Narrative: Normal sinus rhythm with a ventricular rate of [address] changes concerning for ischemia. ECG initial impression date: 04/11/24 ECG initial impression time: 14:14 MDM Narrative Medical Decision Narrative: In summary, this patient is a 74-year-old female presenting to the Emergency Department for evaluation of fever, cough, shortness of breath, chest pain, nausea, and vomiting. Differential diagnoses considered include but are not limited to pneumonia, respiratory failure, COPD exacerbation, viral syndrome. Ruling out the most morbid conditions drove assessment. It should be noted patient's history includes COPD and emphysema which are not at goal therapy. This complicates all aspects of care by increasing patient's risk for morbidity. I reviewed patient's past medical records and noted previous evaluations in the past for similar symptoms. On exam, the patient is resting comfortably on 2 L nasal cannula with reassuring vital signs. She does have wheezing and prolonged expiratory phase with very mild accessory muscle use. Workup included CBC, CMP, troponin, BNP, chest x-ray, EKG, viral swab. She is given DuoNebs x 3 as well as IV methylprednisolone, oral doxycycline, IV Zofran, IV Toradol, oral Tylenol, and a bolus of IV fluids. Patient care signed out to the oncoming provider, Dr. Estrella, pending workup and dispositon. <Sebastian Estrella MD - Last Filed: 04/11/24 16:09> Vital Signs Vital Signs: 04/11/24 14:16 04/11/24 14:23 04/11/24 15:00 Temperature 97.9 F Temperature Source Oral Pulse Rate 76 Pulse Rate [Left Radial] 80 Respiratory Rate 18 Blood Pressure 103/45 L 107/51 L Blood Pressure [Right Arm] 103/45 L Blood Pressure Mean Blood Pressure Mean [Right Arm] 64 02 Sat by Pulse Oximetry 95 99 Oxygen Delivery Method Nasal Cannula Room Air Oxygen Flow Rate (LPM) 2 04/11/24 15:30 04/11/24 16:00 Temperature Temperature Source Pulse Rate 93 H 104 H Pulse Rate [Left Radial] Respiratory Rate Blood Pressure 109/40 L 102/39 L Blood Pressure [Right Arm] Blood Pressure Mean 61 51 Blood Pressure Mean [Right Arm] 02 Sat by Pulse Oximetry 97 96 Oxygen Delivery Method Nasal Cannula Nasal Cannula Oxygen Flow Rate (LPM) 2 2 Lab Data Labs: Lab Results 04/11/24 14:15: SARS-CoV-2 (PCR) Not detected, Influenza A Untype (PCR) Not detected, Influenza Type B (PCR) Not detected 04/11/24 14:24: VBG pH 7.34, VBG pCO2 50.1, VBG pO2 27.6 L, VBG HCO3 26.4, VBG Total CO2 27.9 H, VBG O2 Saturation 62.2, VBG Base Excess 0.6, VBG Lactic Acid 1.8 04/11/24 14:30: WBC 17.7 H, RBC 4.88, Hgb 15.0, Hct 45.6, MCV 93.3, MCH 30.8, MCHC 33.0, RDW 14.0, Plt Count 223, MPV 8.8, Neut % (Auto) 79.6, Lymph % (Auto) 13.6, [place] % (Auto) 4.6, Eos % (Auto) 1.6, Baso % (Auto) 0.7, Neut # (Auto) 14.1 H, Lymph # (Auto) 2.4, [place] # (Auto) 0.8, Eos # (Auto) 0.3, Baso # (Auto) 0.1, Sodium 138, Potassium 4.0, Chloride 104, Carbon Dioxide 30, Anion Gap 8.0, BUN 16, Creatinine 0.70, Estimated Creat Clear 74, Estimated GFR 82, Est GFR ( Amer) 100, Glucose 110 H, Calcium 9.2, Total Bilirubin 1.5 H, AST 21, ALT 21, Alkaline Phosphatase 86, Troponin I < 0.01, NT-Pro-B Natriuret Pep 119, Total Protein 6.7, Albumin 3.9, Globulin 2.8, Albumin/Globulin Ratio 1.4 Response Orders (Tests/Meds): ED MEDICATIONS Discontinued Medications Generic Name Dose Route Start Last Admin Trade Name Fidel PRN Reason Stop Dose Admin Acetaminophen 1,000 mg 04/11/24 14:31 04/11/24 14:58 Acetaminophen 500mg Tab PO 04/11/24 14:32 1,000 mg ONCE ONE Administration Albuterol/Ipratropium 9 ml 04/11/24 14:31 04/11/24 15:00 Ipratropium/Albuterol 3 Ml Neb IH 04/11/24 14:32 9 ml ONCE ONE Administration Doxycycline Hyclate 100 mg 04/11/24 14:49 04/11/24 15:31 Doxycycline Hycl 100 Mg Tablet PO 04/11/24 14:50 100 mg ONCE ONE Administration Ketorolac Tromethamine 15 mg 04/11/24 14:31 04/11/24 15:00 Ketorolac 30mg/Ml Vial IV 04/11/24 14:32 15 mg ONCE ONE Administration Methylprednisolone Sodium Succinate 125 mg 04/11/24 14:31 04/11/24 15:00 Methylprednisolone Sod Succ 125mg Vial IV 04/11/24 14:32 125 mg ONCE ONE Administration Ondansetron HCl 4 mg 04/11/24 14:31 04/11/24 15:00 Ondansetron 4mg/2ml Vial IV 04/11/24 14:32 4 mg ONCE ONE Administration ORDERS Category Date Time Status XR chest portable Stat Exams 04/11/24 14:21 Completed BNP [NT Pro Brain Natriuretic Pep.] Stat Lab 04/11/24 14:30 Results Complete Blood Count Auto Diff Stat Lab 04/11/24 14:30 Results Comprehensive Metabolic Panel Stat Lab 04/11/24 14:30 Results Rapid PCR Covid and Flu A/B Stat Lab 04/11/24 14:15 Completed T4 (Thyroxine) Stat Lab 04/11/24 14:30 Results TSH [Thyroid Stimulating Hormone] Stat Lab 04/11/24 14:30 Results Trop I [Troponin I] Stat Lab 04/11/24 14:30 Results Troponin I Q3H Lab 04/11/24 17:45 Ordered Troponin I Q3H Lab 04/11/24 20:45 Ordered VBG [Venous Blood Gas] Stat RT 04/11/24 14:24 Completed MDM Narrative Medical Decision Narrative: In summary, this patient is a 74-year-old female presenting to the Emergency Department for evaluation of fever, cough, shortness of breath, chest pain, nausea, and vomiting. Differential diagnoses considered include but are not limited to pneumonia, respiratory failure, COPD exacerbation, viral syndrome. Ruling out the most morbid conditions drove assessment. It should be noted patient's history includes COPD and emphysema which are not at goal therapy. This complicates all aspects of care by increasing patient's risk for morbidity. I reviewed patient's past medical records and noted previous evaluations in the past for similar symptoms. On exam, the patient is resting comfortably on 2 L nasal cannula with reassuring vital signs. She does have wheezing and prolonged expiratory phase with very mild accessory muscle use. Workup included CBC, CMP, troponin, BNP, chest x-ray, EKG, viral swab. She is given DuoNebs x 3 as well as IV methylprednisolone, oral doxycycline, IV Zofran, IV Toradol, oral Tylenol, and a bolus of IV fluids. Patient care signed out to the oncoming provider, Dr. Estrella, pending workup and dispositon. Delores: I assumed primary responsibility for this patient after signout from previous physician. On my evaluation, patient intermittently having coughing fits. States that she feels weak afterward, but oxygen, blood pressure, etc. are stable. She is chronically ill-appearing, but not acutely ill-appearing. Speaking in full sentences, on 2 L nasal cannula that she has been taking at home for the past few days since she has been feeling poorly. Pulmonary exam without wheezes bilaterally. This seems to be much improved from previous physician's assessment. Conversation was had with patient and daughter regarding home-going, they were both comfortable with her going home with treatment at home. I feel this is appropriate as well because patient at baseline without signs or symptoms of clinical decompensation, deemed appropriate for discharge. Results were relayed to patient who voiced understanding and were agreeable to outpatient management and follow up. I discussed my clinical impression with patient and answered all questions. At this time, the evidence for any other entities in the differential is insufficient to warrant any further testing or ED observation. This was explained as well. Advisory was given that persistent or worsening symptoms require further evaluation. I confirmed the understanding of this discussion.
[2024-04-11 15:30] LABS: Basophils # 0.1 K/mm3 (0-0.2); Basophils % 0.7 % (0.1-2.0); Eosinophils # 0.3 K/mm3 (0.0-0.4); Eosinophils % 1.6 % (0.1-12.0); Hematocrit 45.6 % (37.0-47.0); Lymphocytes # 2.4 K/mm3 (0.7-4.5); Lymphocytes % 13.6 % (10-50); Mean Corpuscular Hemoglobin 30.8 pg (27.0-31.2); Mean Corpuscular Volume 93.3 fl (81-99); Mean Platelet Volume 8.8 fl (7.4-10.4); Monocytes # 0.8 K/mm3 (0.1-1.0); Monocytes % 4.6 % (1.7-9.3); Neutrophils # 14.1 K/mm3 (1.8-7.8); Neutrophils % 79.6 % (37.0-80.0); Platelet Count 223 K/mm3 (142-424); Red Blood Count 4.88 M/mm3 (4.20-5.40); White Blood Count 17.7 K/mm3 (4.8-10.8)
[2024-04-11] MEDS: DOXYCYCLINE HYCL 100 MG TABLET PO (15:31)
[2024-04-11 15:32] LABS: MANUAL DIFFERENTIAL MANUAL DIFFERENTIAL (MANUAL DIFF)
--- NOTE | 2024-04-11 16:02 | PC.NURSE ---
DR LEE AT BEDSIDE
--- NOTE | 2024-04-11 16:22 | PC.NURSE ---
ER ON PHONE WITH HOSPITALIST
--- NOTE | 2024-04-11 16:26 | PC.NURSE ---
DEPARTMENT SPECIALIST NOTIFIED OF ADMISSION
--- NOTE | 2024-04-11 16:33 | PC.NURSE ---
attempted to call report to second floor, no answer from receiving nurse
--- NOTE | 2024-04-11 16:35 | PC.NURSE ---
House notified of pt meeting sepsis criteria.
--- NOTE | 2024-04-11 16:40 | PC.NURSE ---
report called to bonilla benson on second floor
[2024-04-11] MEDS: CEFTRIAXONE SODIUM 2 GM in 0.9 % SODIUM CHLORIDE 100 ML IV (16:41)
--- NOTE | 2024-04-11 16:42 | PC.NURSE ---
two sets of blood cultures obtained. lactic acid was obtained via VBG. abx started.
[2024-04-11 16:50] LABS: Eosinophils % 1 % (0-3); Lymphocytes % 15 % (10-50); Monocytes % 4 % (2-9); Neutrophils % 80 % (42-76); Platelet Estimate Normal; RBC Morphology Normal; Total Cells Counted 100
[2024-04-11 16:51] LABS: Troponin I < 0.01 ng/ml (0.00-0.034)
--- NOTE | 2024-04-11 16:54 | PC.NURSE ---
arrived by stretcher from ED
[2024-04-11] MEDS: IPRATROPIUM/ALBUTEROL 3 ML NEB IH ×2 (17:04→22:21)
[2024-04-11] MEDS: HEPARIN SODIUM 5,000 UNIT/ML VIAL 5000 UNIT SQ (17:05)
[2024-04-11] MEDS: LACTATED RINGERS 1000ML 2,000 ML 500 ML IV (17:05)
[2024-04-11] MEDS: METHYLPREDNISOLONE SOD SUCC 40MG VIAL 60 MG IV (17:07)
--- NOTE | 2024-04-11 17:14 | P.HP_ITS ---
History of Present Illness *Admission Date: 04/11/24 *Reason for visit:: SOB *History of present illness: Patient is a 74-year-old female with past medical history of COPD exacerbation was recently started on home oxygen 2 L nasal cannula, history of asthma obesity tobacco use presents to the hospital due to shortness of breath. According to the patient she has been feeling sick for the past 2 to 3 days, it has been getting worse, she has been requiring more oxygen. She is advised has been having difficulty taking care of herself. Otherwise denied fever chills nausea vomiting diarrhea constipation dysuria. [facility] Disclaimer: The information contained in this section may have been updated after the patient was seen, as this information can be updated by other users. Medical History Asthma exacerbation Eosinophilia Asthma GERD (gastroesophageal reflux disease) Impacted cerumen of right ear Impacted cerumen of right ear Hoarseness Chronic cough Acute respiratory failure with hypoxia CHF (congestive heart failure) Tachycardia Nodule of left lung Allergic rhinitis Encounter for screening for malignant neoplasm of lung Pneumonia COPD exacerbation Neuralgia Headache Seasonal allergic rhinitis COPD (chronic obstructive pulmonary disease) Screening for lung cancer Pulmonary emphysema Smoking greater than 30 pack years Tobacco abuse disorder Family history of asthma Dyspnea on exertion Tobacco abuse counseling Hypothyroidism (acquired) Diverticulitis Surgical History History of tonsillectomy History of arthroscopic knee surgery Family History Other Alcoholism Coronary artery disease Diabetes Hyperlipidemia Hypertension Substance abuse Thyroid disorder Social History (Updated 04/11/24 @ 17:09 by Jaja Flynn RN) Smoking Status: Former smoker tobacco type: cigarettes packs per day: 1 smoking status stop date: may 2023 second hand exposure: Yes alcohol intake: never substance use type: denies use current occupational status: employed Travel in the last 8 weeks: Inside the [place] household members: family housing: house 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 Review of Systems Review of Systems Review of systems:: pertinent systems reviewed and negative unless documented below Meds Home Medications and Allergies Home Medications Medication Instructions Recorded Confirmed Type albuterol sulfate 90 mcg/actuation 2 puff inhalation QIDP PRN 04/11/24 04/12/24 History aerosol inhaler Shortness Of Breath Or Wheezing famotidine 20 mg tablet 40 mg PO BID 04/11/24 04/12/24 History levothyroxine 125 mcg tablet 125 mcg PO DAILYDM 04/11/24 04/12/24 History budesonide 160 mcg-glycopyr 9 2 inh inhalation BIDRT 04/12/24 04/12/24 History mcg-formot 4.8 mcg/actuation HFA inhaler (Breztri Aerosphere) ipratropium 0.5 mg-albuterol 3 mg 3 ml inhalation QIDP PRN shortness 04/12/24 04/12/24 History (2.5 mg base)/3 mL nebulization of breath or wheezing soln montelukast 10 mg tablet 10 mg PO PM 04/12/24 04/12/24 History New Prescriptions to Start Prescriptions: Allergies Allergy/AdvReac Type Severity Reaction Status Date / Time Penicillins Allergy Verified 02/13/24 13:54 Exam Data for Last 24 hours Vital signs and Labs for Last 24 Hours: Temp Pulse Resp BP Pulse Ox O2 Del Method O2 Flow Rate 97.9 F 91 H 18 101/51 L 93 L Room Air 2 04/11/24 16:50 04/11/24 16:50 04/11/24 16:50 04/11/24 16:50 04/11/24 16:30 04/11/24 16:50 04/11/24 16:30 Laboratory Results - last 24 hr 04/11/24 14:15: SARS-CoV-2 (PCR) Not detected, Influenza A Untype (PCR) Not detected, Influenza Type B (PCR) Not detected 04/11/24 14:24: VBG pH 7.34, VBG pCO2 50.1, VBG pO2 27.6 L, VBG HCO3 26.4, VBG Total CO2 27.9 H, VBG O2 Saturation 62.2, VBG Base Excess 0.6, VBG Lactic Acid 1.8 04/11/24 14:30: WBC 17.7 H, RBC 4.88, Hgb 15.0, Hct 45.6, MCV 93.3, MCH 30.8, MCHC 33.0, RDW 14.0, Plt Count 223, MPV 8.8, Neut % (Auto) 79.6, Lymph % (Auto) 13.6, [place] % (Auto) 4.6, Eos % (Auto) 1.6, Baso % (Auto) 0.7, Neut # (Auto) 14.1 H, Lymph # (Auto) 2.4, [place] # (Auto) 0.8, Eos # (Auto) 0.3, Baso # (Auto) 0.1, Total Counted 100, Neutrophils % (Manual) 80 H, Lymphocytes % (Manual) 15, Monocytes % (Manual) 4, Eosinophils % (Manual) 1, Platelet Estimate Normal, RBC Morphology Normal, Sodium 138, Potassium 4.0, Chloride 104, Carbon Dioxide 30, Anion Gap 8.0, BUN 16, Creatinine 0.70, Estimated Creat Clear 74, Estimated GFR 82, Est GFR ( Amer) 100, Glucose 110 H, Calcium 9.2, Total Bilirubin 1.5 H, AST 21, ALT 21, Alkaline Phosphatase 86, Troponin I < 0.01 04/11/24 14:30: Troponin I < 0.01, NT-Pro-B Natriuret Pep 119, Total Protein 6.7, Albumin 3.9, Globulin 2.8, Albumin/Globulin Ratio 1.4 I & O for Last 24 hours: Intake & Output 04/08/24 04/09/24 04/10/24 04/11/24 23:59 23:59 23:59 23:59 Weight 91.626 kg Constitutional Constitutional: no acute distress *Routine HEENT Exam Head: Present normocephalic Eye: Present EOMI and PERRL ENT: Present mucous membranes moist *Routine Neck Exam Neck: Present supple; Absent lymphadenopathy *Routine Respiratory Exam Respiratory: Present CTA bilaterally *Routine Cardiovascular Exam Cardiovascular: Present RRR *Routine Abdominal Exam Abdominal: Present soft and normoactive bowel sounds; Absent tenderness *Routine Rectal Exam Rectal:: deferred *Routine Genitalia Exam Genitalia:: deferred *Routine Extremities Exam Extremities: Absent cyanosis, clubbing or edema *Routine Skin Exam Skin: Present warm; Absent rash *Routine Neurological Exam Neurological: Present alert and oriented X3 Assessment and Plan *Assessment and plan (1) Acute exacerbation of chronic obstructive pulmonary disease: Status: Acute Category: Medical Code(s): J44.1 - Chronic obstructive pulmonary disease with (acute) exacerbation (2) GERD (gastroesophageal reflux disease): Status: Acute Category: Medical Code(s): K21.9 - Gastro-esophageal reflux disease without esophagitis (3) Obesity (BMI 30.0-34.9): Status: Acute Category: Medical Code(s): E66.9 - Obesity, unspecified (4) CHF (congestive heart failure): Status: Acute Qualifiers: Heart failure chronicity: acute on chronic Heart failure type: unspecified Qualified Code(s): I50.9 - Heart failure, unspecified Category: Medical Code(s): I50.9 - Heart failure, unspecified (5) Tobacco abuse disorder: Status: Chronic Category: Medical Code(s): Z72.0 - Tobacco use (6) Hypothyroidism (acquired): Status: Chronic Category: Medical Code(s): E03.9 - Hypothyroidism, unspecified Plan Patient is a 74-year-old female with past medical history of COPD exacerbation was recently started on home oxygen 2 L nasal cannula, history of asthma obesity tobacco use presents to the hospital due to shortness of breath. According to the patient she has been feeling sick for the past 2 to 3 days, it has been getting worse, she has been requiring more oxygen. She is advised has been having difficulty taking care of herself. Otherwise denied fever chills nausea vomiting diarrhea constipation dysuria. Assessment and plan Acute on chronic hypoxic respiratory failure satting less than 90% on room air COPD exacerbation DuoNeb every 4 hours scheduled Solu-Medrol 60 twice daily Start levofloxacin 750 mg daily Wean oxygen as tolerated Consult pulmonary Tobacco use Nicotine patch ordered History of chronic CHF with preserved ejection fraction -Compensated Monitor on cardiac telemetry Resume home diuretics History of hypothyroidism Resume home levothyroxine DVT prophylaxis- Heparin
[2024-04-11] MEDS: LEVOFLOXACIN/D5W 750 MG/150 ML 750 MG/150 ML PIGGYBACK 100 MG IV (17:34)
[2024-04-11 18:10] LABS: T4 (Thyroxine) 13.1 ug/dl (5.53-11.0)
[2024-04-11 18:24] LABS: Thyroid Stimulating Hormone 0.09 uIU/mL (0.465-4.68)
[2024-04-11 21:28] LABS: Troponin I < 0.01 ng/ml (0.00-0.034)
[2024-04-11] MEDS: BENZONATATE 100MG CAPSULE 100 MG PO (21:40)
[2024-04-12] VITALS (9 sets, daily range): BP systolic 121–134; BP diastolic 56–69; PULSE 81–104; RESP 16–20; TEMP 36.3–36.8; O2SAT 92–97; BMI 37.3
[2024-04-12] MEDS: HEPARIN SODIUM 5,000 UNIT/ML VIAL 5000 UNIT SQ ×2 (00:44→08:33)
[2024-04-12] MEDS: IPRATROPIUM/ALBUTEROL 3 ML NEB IH ×4 (01:32→14:12)
[2024-04-12] MEDS: METHYLPREDNISOLONE SOD SUCC 125MG VIAL 125 MG IV (04:52)
[2024-04-12] MEDS: METHYLPREDNISOLONE SOD SUCC 40MG VIAL 60 MG IV (04:53)
[2024-04-12] MEDS: LEVOTHYROXINE 25MCG (0.025MG) TAB 125 MCG PO (06:51)
[2024-04-12 06:58] LABS: Basophils % 0.1 % (0.1-2.0); Eosinophils # 0.1 K/mm3 (0.0-0.4); Eosinophils % 0.5 % (0.1-12.0); Hematocrit 35.5 % (37.0-47.0); Hemoglobin 13.8 g/dL (12.2-16.2); Lymphocytes % 7.4 % (10-50); Mean Corpuscular HGB Conc 38.9 g/dL (31.8-35.4); Mean Corpuscular Hemoglobin 37.4 pg (27.0-31.2); Mean Corpuscular Volume 96.3 fl (81-99); Mean Platelet Volume 9.4 fl (7.4-10.4); Monocytes # 0.2 K/mm3 (0.1-1.0); Monocytes % 1.6 % (1.7-9.3); Neutrophils # 12.3 K/mm3 (1.8-7.8); Neutrophils % 90.4 % (37.0-80.0); Platelet Count 190 K/mm3 (142-424); Red Blood Count 3.69 M/mm3 (4.20-5.40); Red Cell Distribution Width 14.3 % (11.5-17.5); White Blood Count 13.7 K/mm3 (4.8-10.8)
[2024-04-12 07:02] LABS: Chloride 107 mmol/L (98-107)
[2024-04-12 07:03] LABS: Potassium 4.3 mmoL/L (3.5-5.1); Sodium 138 mmol/L (136-145)
[2024-04-12 07:05] LABS: Blood Urea Nitrogen 21 mg/dl (7-17); Creatinine Clearance Estimated 80 mL/min (50-200); Estimated Glomerular Filt Rate 82 ml/min (>60); GFR (African American) 100 ML/MIN (>60)
[2024-04-12 07:06] LABS: Anion Gap 9.3 mEq/L (5-15); Calcium 9.3 mg/dl (8.4-10.2); Carbon Dioxide 26 mmol/L (22.0-30.0); Glucose 178 mg/dl (74-100)
[2024-04-12 07:08] LABS: MANUAL DIFFERENTIAL MANUAL DIFFERENTIAL (MANUAL DIFF)
[2024-04-12 08:19] LABS: Lymphocytes % 8 % (10-50); Monocytes % 1 % (2-9); Neutrophils % 91 % (42-76); Total Cells Counted 100
[2024-04-12 08:20] LABS: Platelet Estimate Normal; RBC Morphology Normal
--- NOTE | 2024-04-12 08:27 | HMH.PHAINT1 ---
Pharmacy Intervention Comments: MEDICATION RECONCILIATION COMPLETE USING EXTERNAL PHARMACY FILL HISTORY AND MOST RECENT PULMONOLOGY OFFICE VISIT NOTE.
[2024-04-12] MEDS: FAMOTIDINE 20MG TABLET 40 MG PO (08:33)
[2024-04-12] MEDS: NICOTINE 21MG/24HR PATCH 21 MG TD (08:35)
[2024-04-12] MEDS: ACETAMINOPHEN 325MG TAB 650 MG PO (08:48)
[2024-04-12] MEDS: BENZONATATE 100MG CAPSULE 100 MG PO (08:49)
[2024-04-12] MEDS: FLUTICASONE/UMECLIDIN/VILANTER 100/62.5/25MCG INHALER 1 PUFF IH (11:20)
--- NOTE | 2024-04-12 13:32 | EXP.DC.SUM ---
General Admission date:: 04/11/24 Discharge date: 04/12/24 HPI HPI HPI: Patient is a 74-year-old female with past medical history of COPD exacerbation was recently started on home oxygen 2 L nasal cannula, history of asthma obesity tobacco use presents to the hospital due to shortness of breath. According to the patient she has been feeling sick for the past 2 to 3 days, it has been getting worse, she has been requiring more oxygen. She is advised has been having difficulty taking care of herself. Otherwise denied fever chills nausea vomiting diarrhea constipation dysuria. Hospital Course Hospital Course Hospital Course: Patient is a 74-year-old female with past medical history of COPD exacerbation was recently started on home oxygen 2 L nasal cannula, history of asthma obesity tobacco use presents to the hospital due to shortness of breath. According to the patient she has been feeling sick for the past 2 to 3 days, it has been getting worse, she has been requiring more oxygen. She is advised has been having difficulty taking care of herself. Otherwise denied fever chills nausea vomiting diarrhea constipation dysuria. COPD exacerbation - improved, patient was treated with breathing treatments, prednisone and levofloxacin, patient had significant improvement and patient mentions she feels like she is ready to go home, she is walking in the room and hallways without difficulty and requesting to be discharged, patient denied any acute events overnight. patient counselled on following up with PCP and pulmonolgist as OP. On the date of discharge, the patient reported feeling stable. The patient was found not to be in any acute distress, and no new abnormalities on physical examination. Further, the patient expressed appropriate understanding of, and agreement with, the discharge recommendations, medications, and plan. Time spent 37 mins Exam Data for Last 24 hours Vital signs and Labs for Last 24 Hours: Temp Pulse Resp BP Pulse Ox O2 Del Method O2 Flow Rate 97.8 F 90 18 130/66 92 L Nasal Cannula 2 04/12/24 11:48 04/12/24 12:00 04/12/24 11:48 04/12/24 11:48 04/12/24 11:48 04/12/24 13:00 04/12/24 13:00 Laboratory Results - last 24 hr 04/11/24 14:15: SARS-CoV-2 (PCR) Not detected, Influenza A Untype (PCR) Not detected, Influenza Type B (PCR) Not detected 04/11/24 14:24: VBG pH 7.34, VBG pCO2 50.1, VBG pO2 27.6 L, VBG HCO3 26.4, VBG Total CO2 27.9 H, VBG O2 Saturation 62.2, VBG Base Excess 0.6, VBG Lactic Acid 1.8 04/11/24 14:30: WBC 17.7 H, RBC 4.88, Hgb 15.0, Hct 45.6, MCV 93.3, MCH 30.8, MCHC 33.0, RDW 14.0, Plt Count 223, MPV 8.8, Neut % (Auto) 79.6, Lymph % (Auto) 13.6, [place] % (Auto) 4.6, Eos % (Auto) 1.6, Baso % (Auto) 0.7, Neut # (Auto) 14.1 H, Lymph # (Auto) 2.4, [place] # (Auto) 0.8, Eos # (Auto) 0.3, Baso # (Auto) 0.1, Total Counted 100, Neutrophils % (Manual) 80 H, Lymphocytes % (Manual) 15, Monocytes % (Manual) 4, Eosinophils % (Manual) 1, Platelet Estimate Normal, RBC Morphology Normal, Sodium 138, Potassium 4.0, Chloride 104, Carbon Dioxide 30, Anion Gap 8.0, BUN 16, Creatinine 0.70, Estimated Creat Clear 74, Estimated GFR 82, Est GFR ( Amer) 100, Glucose 110 H, Calcium 9.2, Total Bilirubin 1.5 H, AST 21, ALT 21, Alkaline Phosphatase 86, Troponin I < 0.01 04/11/24 14:30: Troponin I < 0.01, NT-Pro-B Natriuret Pep 119, Total Protein 6.7, Albumin 3.9, Globulin 2.8, Albumin/Globulin Ratio 1.4, TSH 0.09 L, Thyroxine (T4) 13.1 H 04/11/24 20:40: Troponin I < 0.01 04/12/24 06:25: WBC 13.7 H, RBC 3.69 L, Hgb 13.8, Hct 35.5 L, MCV 96.3, MCH 37.4 H, MCHC 38.9 H, RDW 14.3, Plt Count 190, MPV 9.4, Neut % (Auto) 90.4 H, Lymph % (Auto) 7.4 L, [place] % (Auto) 1.6 L, Eos % (Auto) 0.5, Baso % (Auto) 0.1, Neut # (Auto) 12.3 H, Lymph # (Auto) 1.0, [place] # (Auto) 0.2, Eos # (Auto) 0.1, Baso # (Auto) 0.0, Total Counted 100, Neutrophils % (Manual) 91 H, Lymphocytes % (Manual) 8 L, Monocytes % (Manual) 1 L, Platelet Estimate Normal, RBC Morphology Normal, Sodium 138, Potassium 4.3, Chloride 107, Carbon Dioxide 26, Anion Gap 9.3, BUN 21 H D, Creatinine 0.70, Estimated Creat Clear 80, Estimated GFR 82, Est GFR ( Amer) 100, Glucose 178 H D, Calcium 9.3 I & O for Last 24 hours: Intake & Output 04/09/24 04/10/24 04/11/24 04/12/24 23:59 23:59 23:59 23:59 Intake Total 360 / 360 420 / 420 Output Total 0 / 0 Balance 360 / 360 420 / 420 Weight 95.481 kg 99.201 kg Constitutional Constitutional: no acute distress *Routine HEENT Exam Head: Present normocephalic Eye: Present EOMI and PERRL ENT: Present mucous membranes moist *Routine Neck Exam Neck: Present supple; Absent lymphadenopathy *Routine Respiratory Exam Respiratory: Present CTA bilaterally *Routine Cardiovascular Exam Cardiovascular: Present RRR *Routine Abdominal Exam Abdominal: Present soft and normoactive bowel sounds; Absent tenderness *Routine Extremities Exam Extremities: Absent cyanosis, clubbing or edema *Routine Skin Exam Skin: Present warm; Absent rash *Routine Neurological Exam Neurological: Present alert and oriented X3 Results Data Completed and Pending Labs on day of discharge: Labs from last 24 hours 04/12/24 04/11/24 04/11/24 06:25 20:40 14:30 WBC 13.7 H RBC 3.69 L Hgb 13.8 Hct 35.5 L MCV 96.3 MCH 37.4 H MCHC 38.9 H RDW 14.3 Plt Count 190 MPV 9.4 Neut % (Auto) 90.4 H Lymph % (Auto) 7.4 L [place] % (Auto) 1.6 L Eos % (Auto) 0.5 Baso % (Auto) 0.1 Neut # (Auto) 12.3 H Lymph # (Auto) 1.0 [place] # (Auto) 0.2 Eos # (Auto) 0.1 Baso # (Auto) 0.0 Total Counted 100 Neutrophils % (Manual) 91 H Lymphocytes % (Manual) 8 L Monocytes % (Manual) 1 L Eosinophils % (Manual) Platelet Estimate Normal RBC Morphology Normal VBG pH VBG pCO2 VBG pO2 VBG HCO3 VBG Total CO2 VBG O2 Saturation VBG Base Excess VBG Lactic Acid Sodium 138 Potassium 4.3 Chloride 107 Carbon Dioxide 26 Anion Gap 9.3 BUN 21 H D Creatinine 0.70 Estimated Creat Clear 80 Estimated GFR 82 Est GFR ( Amer) 100 Glucose 178 H D Calcium 9.3 Total Bilirubin AST ALT Alkaline Phosphatase Troponin I < 0.01 < 0.01 NT-Pro-B Natriuret Pep 119 Total Protein 6.7 Albumin 3.9 Globulin 2.8 Albumin/Globulin Ratio 1.4 TSH 0.09 L Thyroxine (T4) 13.1 H SARS-CoV-2 (PCR) Influenza A Untype (PCR) Influenza Type B (PCR) 04/11/24 04/11/24 04/11/24 14:30 14:24 14:15 WBC 17.7 H RBC 4.88 Hgb 15.0 Hct 45.6 MCV 93.3 MCH 30.8 MCHC 33.0 RDW 14.0 Plt Count 223 MPV 8.8 Neut % (Auto) 79.6 Lymph % (Auto) 13.6 [place] % (Auto) 4.6 Eos % (Auto) 1.6 Baso % (Auto) 0.7 Neut # (Auto) 14.1 H Lymph # (Auto) 2.4 [place] # (Auto) 0.8 Eos # (Auto) 0.3 Baso # (Auto) 0.1 Total Counted 100 Neutrophils % (Manual) 80 H Lymphocytes % (Manual) 15 Monocytes % (Manual) 4 Eosinophils % (Manual) 1 Platelet Estimate Normal RBC Morphology Normal VBG pH 7.34 VBG pCO2 50.1 VBG pO2 27.6 L VBG HCO3 26.4 VBG Total CO2 27.9 H VBG O2 Saturation 62.2 VBG Base Excess 0.6 VBG Lactic Acid 1.8 Sodium 138 Potassium 4.0 Chloride 104 Carbon Dioxide 30 Anion Gap 8.0 BUN 16 Creatinine 0.70 Estimated Creat Clear 74 Estimated GFR 82 Est GFR ( Amer) 100 Glucose 110 H Calcium 9.2 Total Bilirubin 1.5 H AST 21 ALT 21 Alkaline Phosphatase 86 Troponin I < 0.01 NT-Pro-B Natriuret Pep Total Protein Albumin Globulin Albumin/Globulin Ratio TSH Thyroxine (T4) SARS-CoV-2 (PCR) Not detected Influenza A Untype (PCR) Not detected Influenza Type B (PCR) Not detected DS: Diagnosis Discharge Diagnosis (1) Acute exacerbation of chronic obstructive pulmonary disease: Status: Acute Code(s): J44.1 - Chronic obstructive pulmonary disease with (acute) exacerbation (2) GERD (gastroesophageal reflux disease): Status: Acute Code(s): K21.9 - Gastro-esophageal reflux disease without esophagitis (3) Obesity (BMI 30.0-34.9): Status: Acute Code(s): E66.9 - Obesity, unspecified (4) CHF (congestive heart failure): Status: Acute Code(s): I50.9 - Heart failure, unspecified Qualifiers: Heart failure chronicity: acute on chronic Heart failure type: unspecified Qualified Code(s): I50.9 - Heart failure, unspecified (5) Tobacco abuse disorder: Status: Chronic Code(s): Z72.0 - Tobacco use (6) Hypothyroidism (acquired): Status: Chronic Code(s): E03.9 - Hypothyroidism, unspecified Meds Home Medications and Allergies Home Medications Medication Instructions Recorded Confirmed Type albuterol sulfate 90 mcg/actuation 2 puff inhalation QIDP PRN 04/11/24 04/12/24 History aerosol inhaler Shortness Of Breath Or Wheezing famotidine 20 mg tablet 40 mg PO BID 04/11/24 04/12/24 History levothyroxine 125 mcg tablet 125 mcg PO DAILYDM 04/11/24 04/12/24 History budesonide 160 mcg-glycopyr 9 2 inh inhalation BIDRT 04/12/24 04/12/24 History mcg-formot 4.8 mcg/actuation HFA inhaler (Breztri Aerosphere) ipratropium 0.5 mg-albuterol 3 mg 3 ml inhalation QIDP PRN shortness 04/12/24 04/12/24 History (2.5 mg base)/3 mL nebulization of breath or wheezing soln levofloxacin 750 mg tablet 750 mg PO DAILY 5 days #5 tabs 04/12/24 Rx montelukast 10 mg tablet 10 mg PO PM 04/12/24 04/12/24 History prednisone 50 mg tablet 50 mg PO DAILY #30 tabs 04/12/24 Rx New Prescriptions to Start Prescriptions: levofloxacin Nancy Harvey prednisone Nancy Harvey Allergies Allergy/AdvReac Type Severity Reaction Status Date / Time Penicillins Allergy Verified 02/13/24 13:54 Discharge Plan Disposition Patient Disposition: Home, Self-Care Condition: Good Follow up Plan Follow up with: Tony Augustine DO [Primary Care Provider] - 1 week Prescriptions/Medication Reconciliation: New prednisone 50 mg tablet 50 mg PO DAILY Qty: 30 0RF levofloxacin 750 mg tablet 750 mg PO DAILY 5 Days Qty: 5 0RF Continued famotidine 20 mg tablet 40 mg PO BID levothyroxine 125 mcg tablet 125 mcg PO DAILYDM Rx Instructions: TAKE 1 TABLET BY MOUTH ONCE DAILY AT 7 AM albuterol sulfate 90 mcg/actuation HFA aerosol inhaler 2 puff inhalation QIDP PRN (Reason: Shortness Of Breath Or Wheezing) montelukast 10 mg tablet 10 mg PO PM Patient Comments: TAKE 1 TABLET BY MOUTH ONCE DAILY IN THE EVENING FOR 90 DAYS Breztri Aerosphere 160-9-4.8 mcg/actuation HFA aerosol inhaler 2 inh INHALATION BIDRT Patient Comments: INHALE 2 PUFFS BY MOUTH TWICE DAILY FOR 90 DAYS ipratropium-albuterol 0.5 mg-3 mg(2.5 mg base)/3 mL solution for nebulization 3 ml inhalation QIDP PRN (Reason: shortness of breath or wheezing) Problem Reconciliation Problems Reviewed?: Yes Patient Discharge Instructions ACTIVITY: Ambulate as tolerated DIET: continue same diet Patient Instructions: Chronic Obstructive Pulmonary Disease (Alternative Therapy), Chronic Obstructive Pulmonary Disease, DI for Chronic Obstructive Pulmonary Disease, DI for Shortness of Breath, How to Manage Shortness of Breath, COPD: When to Call for Help, Physical Activity for People with COPD Providers Primary Care Provider: Tony Augustine Admit Provider: Nancy Harvey Attending Provider: Nancy Harvey
--- NOTE | 2024-04-12 14:53 | PC.NURSE ---
pt is 94% on room air
--- NOTE | 2024-04-12 16:45 | PC.NURSE ---
[facility] called to ask about prescriptions for pt. States they received scripts for Doxy & Levaquin. Pt was d/c from 2nd floor (Dr. Harvey) today and the newest script for Levaquin should be the script they fill per d.c summary
--- NOTE | 2024-04-14 15:25 | SW/DCPLANNER ---
Follow up phone call: patient stated that she is doing well at home since discharge. Patient was able to [employer] medications and make follow up appointments w/ PCP. Patient did not have any further needs/questions at this time.
== END 2024-04-12 16:07 | disposition home or self-care (01) ==
LOC: ER 16:23 → 2ND 16:28
PROVIDERS: Emergency Medicine; Admitting Provider Internal Medicine; Emergency Provider Emergency Medicine; PCP Internal Medicine; Visit Provider Internal Medicine
DX: J44.1 Chronic obstructive pulmonary disease with (acute) exacerbation (principal); K21.9 Gastro-esophageal reflux disease without esophagitis; E66.9 Obesity, unspecified; I50.9 Heart failure, unspecified; Z72.0 Tobacco use; E03.9 Hypothyroidism, unspecified; Z99.81 Dependence on supplemental oxygen; Z68.37 Body mass index [BMI] 37.0-37.9, adult
CPT/HCPCS: 36415; 71045; 80048; 80053; 82803; 83880; 84436; 84443; 84484; 85007; 85025; 87040; 87636; 93005; 94640; 94761; 99285; G0378; J0696; J1644; J1885; J1956; J2405; J2919; J7120; J7620

== ENCOUNTER 2024-04-21 10:12 | Outpatient (CLI) | payer MEDICARE, SELFPAY ==
--- NOTE | 2024-04-21 10:20 | XR_ITS ---
FINAL REPORT CLINICAL HISTORY: COPD CHEST TIGHTNESS FINDINGS: Two views of the chest were obtained. The heart size is normal. There is mild pulmonary vascular congestion. The mediastinum is normal. The lungs are hyperinflated consistent with COPD. No acute pulmonary abnormality is identified. There is no pneumothorax. The bony thorax is intact. IMPRESSION: Mild pulmonary vascular congestion. COPD. Reviewed, Interpreted and Dictated by Manoj Mesa III, MD Transcribed by Christine Rangel Authenticated and [facility]
[2024-04-21 11:14] LABS: Basophils # 0.1 K/mm3 (0-0.2); Basophils % 0.9 % (0.1-2.0); Eosinophils # 0.3 K/mm3 (0.0-0.4); Eosinophils % 1.8 % (0.1-12.0); Hematocrit 46.8 % (37.0-47.0); Hemoglobin 15.3 g/dL (12.2-16.2); Lymphocytes # 4.6 K/mm3 (0.7-4.5); Lymphocytes % 30.8 % (10-50); Mean Corpuscular HGB Conc 32.7 g/dL (31.8-35.4); Mean Corpuscular Hemoglobin 31.1 pg (27.0-31.2); Mean Corpuscular Volume 95.3 fl (81-99); Mean Platelet Volume 8.9 fl (7.4-10.4); Monocytes # 0.7 K/mm3 (0.1-1.0); Monocytes % 4.8 % (1.7-9.3); Neutrophils # 9.3 K/mm3 (1.8-7.8); Neutrophils % 61.7 % (37.0-80.0); Platelet Count 273 K/mm3 (142-424); Red Blood Count 4.91 M/mm3 (4.20-5.40); Red Cell Distribution Width 15.1 % (11.5-17.5)
[2024-04-21 11:15] LABS: MANUAL DIFFERENTIAL MANUAL DIFFERENTIAL (MANUAL DIFF)
[2024-04-21 11:49] LABS: Thyroid Stimulating Hormone 0.67 uIU/mL (0.465-4.68)
[2024-04-21 13:21] LABS: Lymphocytes % 35 % (10-50); Monocytes % 5 % (2-9); Neutrophils % 58 % (42-76); Platelet Estimate Normal; RBC Morphology Normal; Total Cells Counted 100
== END 2024-04-21 23:59 | disposition home or self-care (01) ==
LOC: LAB 10:13
PROVIDERS: PCP Internal Medicine; Visit Provider Internal Medicine
DX: J44.1 Chronic obstructive pulmonary disease with (acute) exacerbation (principal); J43.9 Emphysema, unspecified; E03.9 Hypothyroidism, unspecified
CPT/HCPCS: 36415; 71046; 84443; 85007; 85025; 85027

== ENCOUNTER 2024-05-13 12:00 | Outpatient (POV) | payer MEDICARE, SELFPAY | END 2024-05-13 23:59 | disposition home or self-care (01) | LOC: SC 12:00 | PROVIDERS: PCP Internal Medicine; Visit Provider Dermatology | DX: Z00.00 Encounter for general adult medical examination without abnormal findings (principal) ==

== ENCOUNTER 2024-06-03 09:56 | Outpatient (CLI) | payer MEDICARE, SELFPAY ==
[2024-06-03] MEDS: ALBUTEROL 0.083% 2.5 MG/3 ML NEB IH (10:27)
--- NOTE | 2024-06-03 13:37 | PC.NURSE ---
Pre and Post Spirometry completed without incident. Albuterol 0.083% given via HHN, per written protocol, Pt tolerated tx well. 6 Minute Walk Test Completed.
== END 2024-06-03 23:59 | disposition home or self-care (01) ==
LOC: RT 09:57
PROVIDERS: PCP Internal Medicine; Visit Provider Internal Medicine Pulmonary Disease
DX: R06.09 Other forms of dyspnea (principal)
CPT/HCPCS: 94060; 94618; J7613

== ENCOUNTER 2024-07-28 09:27 | Outpatient (CLI) | payer MEDICARE, SELFPAY ==
--- NOTE | 2024-07-28 09:30 | XR_ITS ---
FINAL REPORT CLINICAL HISTORY: cough, soa, congestion, wheezing COMPARISON: 04/21/2024 FINDINGS: 2 views of the chest were obtained . The heart is normal in size. The mediastinum is within normal limits. There are mild chronic changes at the lung bases. Lungs are otherwise clear. There is no pneumothorax. Osseous structures are unremarkable. IMPRESSION: No acute cardiopulmonary process. Reviewed, Interpreted and Dictated by Joaquim Peres MD Transcribed by Beronica Kruger Authenticated and [facility]
== END 2024-07-28 23:59 | disposition home or self-care (01) ==
LOC: RAD 09:28
PROVIDERS: PCP Internal Medicine; Visit Provider Internal Medicine Pulmonary Disease
DX: R05.3 Chronic cough (principal)
CPT/HCPCS: 71046

== ENCOUNTER 2024-08-05 09:15 | Outpatient (CLI) | payer MEDICARE, SELFPAY ==
[2024-08-05 09:48] LABS: Basophils # 0.2 K/mm3 (0-0.2); Basophils % 1.3 % (0.1-2.0); Eosinophils # 0.2 K/mm3 (0.0-0.4); Eosinophils % 1.4 % (0.1-12.0); Hematocrit 44.2 % (37.0-47.0); Hemoglobin 14.7 g/dL (12.2-16.2); Lymphocytes # 5.2 K/mm3 (0.7-4.5); Mean Corpuscular HGB Conc 33.2 g/dL (31.8-35.4); Mean Corpuscular Hemoglobin 31.1 pg (27.0-31.2); Mean Corpuscular Volume 93.6 fl (81-99); Mean Platelet Volume 8.5 fl (7.4-10.4); Monocytes # 0.8 K/mm3 (0.1-1.0); Monocytes % 5.7 % (1.7-9.3); Neutrophils % 52.7 % (37.0-80.0); Platelet Count 208 K/mm3 (142-424); Red Blood Count 4.72 M/mm3 (4.20-5.40); Red Cell Distribution Width 14.3 % (11.5-17.5); White Blood Count 13.3 K/mm3 (4.8-10.8)
[2024-08-05 09:53] LABS: Coronavirus 19, PCR Not Detected (NotDetected); Influenza A, PCR Not Detected (NotDetected); Influenza B, PCR Not Detected (NotDetected)
[2024-08-05 10:06] LABS: Alanine Aminotransferase 28 U/L (12-78); Albumin Level 3.6 g/dl (3.5-5.0); Alkaline Phosphatase 59 U/L (38-126); Anion Gap 5.8 mEq/L (5-15); Aspartate Amino Transferase 24 U/L (14-36); Bilirubin,Direct 0.1 mg/dl (0.0-0.4); Bilirubin,Indirect 0.5 mg/dL (0.0-0.9); Bilirubin,Total 0.6 mg/dl (0.2-1.3); Bilirubin,Unconjugated 0.4 mg/dL (0.0-1.1); Blood Urea Nitrogen 22 mg/dl (7-17); Calcium 9.2 mg/dl (8.4-10.2); Carbon Dioxide 32 mmol/L (22.0-30.0); Chloride 107 mmol/L (98-107); Cholesterol 160 mg/dl (140-200); Estimated Glomerular Filt Rate 98 ml/min (>60); GFR (African American) 119 ML/MIN (>60); Glucose 92 mg/dl (74-100); HDL Cholesterol 80 mg/dl (40-60); Magnesium 1.8 mg/dl (1.6-2.3); Potassium 3.8 mmoL/L (3.5-5.1); Sodium 141 mmol/L (136-145); Total Protein,Serum 5.4 g/dl (6.3-8.2); Triglycerides 93 mg/dl (30-150); VLDL Cholesterol 19 mg/dL (0-40)
[2024-08-05 10:15] LABS: NT Pro Brain Natriuretic Pep. 77.1 pg/mL (0-125)
[2024-08-05 10:17] LABS: Direct LDL Cholesterol 62.41 mg/dL (100-129)
[2024-08-05 10:20] LABS: Free T4 (Free Thyroxine) 1.49 ng/dl (0.78-2.19)
[2024-08-05 10:25] LABS: RSV Rapid Ab Screen Negative (Negative)
[2024-08-05 10:36] LABS: Thyroid Stimulating Hormone 2.16 uIU/mL (0.465-4.68)
[2024-08-05 10:55] LABS: Hemoglobin A1C 5.6 % (4.0-6.0)
== END 2024-08-05 23:59 | disposition home or self-care (01) ==
LOC: LAB 09:16
PROVIDERS: PCP Internal Medicine; Visit Provider Physician Assistant
DX: R00.2 Palpitations (principal); R07.89 Other chest pain; Z13.1 Encounter for screening for diabetes mellitus; I50.9 Heart failure, unspecified; M79.89 Other specified soft tissue disorders; E66.9 Obesity, unspecified; J43.9 Emphysema, unspecified; F17.210 Nicotine dependence, cigarettes, uncomplicated; R05.9 Cough, unspecified; R06.02 Shortness of breath; Z68.39 Body mass index [BMI] 39.0-39.9, adult
CPT/HCPCS: 36415; 80048; 80061; 80076; 83036; 83735; 83880; 84439; 84443; 85025; 87636; 87807

== ENCOUNTER 2024-08-12 09:26 | Outpatient (CLI) | payer MEDICARE, SELFPAY ==
--- NOTE | 2024-08-12 09:29 | CA_ITS ---
APPROVED REPORT EXAM: Comprehensive 2D, Doppler, and color-flow Echocardiogram Radio Engineer: ELENA Verdugo, RVS Ht: 5 ft 4 in Wt: 231lbs BSA: 2.08 BP: 98/54 mmHg Indications: CP, SOB, worsening cough, COPD, CP, Smoker, Palpitations, Fatigue, Hypotension Echo Enhancing Agent Comments: TDS: body habitus with lung impedence 2D Dimensions Left Atrium 2.88 cm LA Volume 63.20 mL LA Volume Index 29.70 mL/m2 (M/F) 16-34 EF AP4 56.30 % GL Strain -26.4 % M-Mode Dimensions RVDd 2.69 cm (0.9-2.6) LA Diam 4.45 cm (1.9-4.0) LVDd 5.88 cm (3.5-5.7) LVDs 3.98 cm (3.5-5.7) IVSd 1.43 cm (0.6-1.1) PWd 0.97 cm (0.6-1.1) EF (Teich) 59.70% EPSs 0.50 cm FS 32.30% EDV (Teich) 171.90 mL TAPSE 2.95 (<1.7) ESV (Teich) 69.20 mL LV Diastology E Decel Time 197 (160-240 msec) E/A Ratio 1.12 MED A' 7.90 cm/s LAT A' 7.00 cm/s Aortic Valve CHRISTIE Index 0.99 cm2/m2 AoV Peak Shantanu. 148.0 (50-130 cm/s) AO Peak GR. 8.80 mmHg AO Mean GR. 4.30 (<5 mmHg) AO VTI 32.0 (18-25 cm) CHRISTIE (VTI) 2.11 (2.5-4.5 cm2) Mitral Valve MV A Velocity 87.0 (40-130 cm/s) E/A Ratio 1.12 Pulmonary Valve PV Peak Velocity 111.0 (50-150 cm/s) Tricuspid Valve TR P. Velocity 197.00 cm/s RAP Estimate 10.00 mmHg RVSP 25.50 mmHg Left Ventricle The left ventricle is normal size. The left ventricular systolic function is normal. The left ventricular ejection fraction is within the normal range. There is increased LV wall thickness. There is normal LV segmental wall motion. The left ventricular diastolic function is normal. LVEF is 60%. Right Ventricle The right ventricle is normal size. The right ventricular systolic function is normal. Atria The left atrium size is normal. The right atrium size is normal. There is no Doppler evidence of interatrial shunt. Aortic Valve The aortic valve is mildly thickened. There is no aortic valvular stenosis. No aortic regurgitation is present. Mitral Valve The mitral valve is normal in structure. No evidence of mitral valve stenosis. Mild mitral regurgitation. Tricuspid Valve Tricuspid valve is grossly normal in structure and function. Trace tricuspid regurgitation. Pulmonic Valve The pulmonary valve is normal in structure. Trace pulmonic regurgitation. The ascending aorta is not well-visualized. Great Vessels The aortic root is normal in size. There is insufficient TR jet to estimate RVSP. IVC is normal in size and collapses >50% with inspiration. Pericardium Trivial anterior pericardial effusion is present. No echo indications of tamponade. Other Information Study Quality: Fair Conclusion Normal biventricular systolic function. Mild MR. Trivial anterior pericardial effusion is present. No echo indications of tamponade. Electronically signed by : Petra Blas MD 08/14/2024 14:43:06
--- NOTE | 2024-08-12 10:07 | CT_ITS ---
FINAL REPORT TECHNIQUE: Thin section axial images were obtained from the lung apices to the upper abdomen by computed tomography. Reformatted images were obtained and reviewed. This study was performed with techniques to keep radiation doses al low as reasonably achievable (ALARA). Individualized dose reduction techniques using automated exposure control or adjustment of mA and/or kV according to the patient's size were employed. CLINICAL HISTORY: .current smoker 1 ppd x 46 yrs COMPARISON: 05/15/2023 FINDINGS: CHEST CT LOW DOSE CTDI vol (mGy): 2.9 DLP (mGy-cm): 109.68 There is no axillary adenopathy. Small mediastinal nodes are present. There is no adenopathy. The heart is normal in size. There are mild coronary artery calcifications. There is no pericardial or pleural effusion. There is mild emphysema and mild pulmonary scarring. Lung window images demonstrate stable pulmonary nodules including a 4 mm posterior right upper lobe nodule on series 3 image 32 and a 4 mm lateral left lower lobe nodule on series 3 image 56. No new mass or nodule identified. There are multiple calcified granulomas. Right middle lobe atelectasis or scarring is noted. Limited images of the upper abdomen are unremarkable. IMPRESSION: Lung-RADS category 2. Recommend 12 month follow up low dose chest CT. Reviewed, Interpreted and Dictated by Manoj Mesa III, MD Transcribed by Bianka Mccallum Authenticated and [facility]
== END 2024-08-12 23:59 | disposition home or self-care (01) ==
LOC: RT 09:27
PROVIDERS: PCP Internal Medicine; Visit Provider Internal Medicine Pulmonary Disease
DX: I34.0 Nonrheumatic mitral (valve) insufficiency (principal); R05.9 Cough, unspecified; R00.2 Palpitations; M79.89 Other specified soft tissue disorders; R07.89 Other chest pain; I50.9 Heart failure, unspecified; J43.9 Emphysema, unspecified; E66.9 Obesity, unspecified; Z68.38 Body mass index [BMI] 38.0-38.9, adult; F17.210 Nicotine dependence, cigarettes, uncomplicated; Z13.1 Encounter for screening for diabetes mellitus
CPT/HCPCS: 71271; 93306

== ENCOUNTER 2024-09-16 13:58 | Outpatient (CLI) | payer MEDICARE, SELFPAY ==
--- NOTE | 2024-09-16 14:03 | XR_ITS ---
FINAL REPORT CLINICAL HISTORY: knee pain COMPARISON: None FINDINGS: Two views of the left knee were obtained. There is no evidence of fracture or dislocation. The bony alignment is normal. There are mild and moderate degenerative changes. There is no evidence of joint effusion. There are multiple posterior loose bodies measuring up to 10 mm. IMPRESSION: Degenerative changes with multiple posterior loose bodies measuring up to 10 mm. Reviewed, Interpreted and Dictated by Manoj Mesa III, MD Transcribed by Cleopatra Clay Authenticated and [facility]
== END 2024-09-16 23:59 | disposition home or self-care (01) ==
LOC: RAD 13:59
PROVIDERS: PCP Internal Medicine; Visit Provider Internal Medicine
DX: M17.0 Bilateral primary osteoarthritis of knee (principal)
CPT/HCPCS: 73560

== ENCOUNTER 2024-11-14 09:21 | Observation (INO) | payer MEDICARE, SELFPAY ==
[2024-11-14] VITALS (13 sets, daily range): BP systolic 102–162; BP diastolic 33–90; PULSE 62–92; RESP 16–22; TEMP 36.5–37.4; O2SAT 88–96; BMI 39.6; BMI 38.9
--- NOTE | 2024-11-14 09:19 | PC.NURSE ---
DR ESTRADA AT BEDSIDE
--- NOTE | 2024-11-14 09:22 | XR_ITS ---
FINAL REPORT CLINICAL HISTORY: SOA COMPARISON: 07/28/2024 FINDINGS: SINGLE VIEW CHEST There is mild cardiomegaly. There is a calcified lymph node in the right infrahilar region. The mediastinum is unremarkable. There are chronic changes at both bases. There is no pneumothorax. IMPRESSION: No acute process. Reviewed, Interpreted and Dictated by Joaquim Peres MD Transcribed by Nydia Ramirez Authenticated and [facility]
--- NOTE | 2024-11-14 09:23 | ECG_ITS ---
APPROVED REPORT Exam: Resting ECG HR:87 bpm ECG Measurements Heart Rate 87 AXES NV 127 P 55 QRSd 98 QRS 75 QT 344 T 71 QTc 388 Conclusion SINUS RHYTHM MODERATE ST DEPRESSION [0.05+ mV ST DEPRESSION] ABNORMAL ECG UNCONFIRMED REPORT Electronically signed by : OFELIA PALUMBO, 11/15/2024 00:42:17
[2024-11-14 09:30] LABS: Adenovirus,PCR Not Detected (NotDetected); Bordetella Pertussis Not Detected (NotDetected); Chlamydophila Pneumoniae, PCR Not Detected (NotDetected); Coronavirus 19, PCR Not Detected (NotDetected); Coronavirus 229E Not Detected (NotDetected); Coronavirus NL63 Not Detected (NotDetected); Coronavirus OC43 Not Detected (NotDetected); Coronovirus HKU1,PCR Not Detected (NotDetected); Human Metapneumovirus Not Detected (NotDetected); Influenza A, PCR Not Detected (NotDetected); Influenza AH1, 2009 Not Detected (NotDetected); Influenza AH1, PCR Not Detected (NotDetected); Influenza B, PCR Not Detected (NotDetected); Mycoplasma Pneumoniae, PCR Not Detected (NotDetected); Parainfluenza 1, PCR Not Detected (NotDetected); Parainfluenza 2, PCR Not Detected (NotDetected); Parainfluenza 3, PCR Not Detected (NotDetected); Parainfluenza 4, PCR Not Detected (NotDetected); Respiratory Syncytial Virus Not Detected (NotDetected); Rhinovirus/Enterovirus Not Detected (NotDetected)
[2024-11-14] MEDS: IPRATROPIUM/ALBUTEROL 3 ML NEB 9 ML IH (09:30)
[2024-11-14] MEDS: MAGNESIUM SULFATE IN WATER 2 GM/50 ML PIGGYBACK IV (09:30)
--- NOTE | 2024-11-14 09:32 | PC.NURSE ---
RESPIRATORY NOTIFIED OF VBG ORDER, BLOOD SENT TO LAB
--- NOTE | 2024-11-14 09:33 | PC.NURSE ---
both blood cultures have been collected at this time and blue band was placed on left wrist
[2024-11-14 09:37] LABS: Basophils % 0.6 % (0.1-2.0); Hematocrit 41.8 % (37.0-47.0); Hemoglobin 13.8 g/dL (12.2-16.2); Lymphocytes % 14.7 % (10-50); Mean Corpuscular Hemoglobin 30.9 pg (27.0-31.2); Mean Corpuscular Volume 93.5 fl (81-99); Mean Platelet Volume 10.9 fl (7.4-10.4); Monocytes # 0.6 K/mm3 (0.1-1.0); Monocytes % 8.5 % (1.7-9.3); Neutrophils # 5.1 K/mm3 (1.8-7.8); Neutrophils % 75.8 % (37.0-80.0); Platelet Count 175 K/mm3 (142-424); Red Blood Count 4.47 M/mm3 (4.20-5.40); Red Cell Distribution Width 14.1 % (11.5-17.5); White Blood Count 6.7 K/mm3 (4.8-10.8)
--- NOTE | 2024-11-14 09:39 | [facility].EDCP ---
Discharge Plan Disposition Patient Disposition: Admitted Condition: Fair Prescriptions Prescriptions: No Action albuterol sulfate 0.63 mg/3 mL solution for nebulization 0.63 mg inhalation Q6H Qty: 90 2RF levothyroxine 125 mcg tablet See Rx Instructions .ROUTE .COMPLEX Qty: 90 0RF Dose Instruction: TAKE 1 TABLET BY MOUTH ONCE DAILY AT 7 AM Rx Instructions: TAKE 1 TABLET BY MOUTH ONCE DAILY AT 7 AM Referrals Follow up/Referrals: Tony Augustine DO [Primary Care Provider] - See instructions Clinical Impressions Clinical Impression: Acute exacerbation of COPD with asthma, Influenza Print Language Print Language: Italian Discharge ED Provider: Izabel Doherty HPI General Chief Complaint: Shortness of Breath/Dyspnea Stated Complaint: asthma episode Time Seen by Provider: 11/14/24 09:22 Mode of Arrival: EMS Source of Information: Patient and EMS Limitations: No Limitations Description of Symptoms (Recalled from ER Triage Doc. by RN): pt c/o SOA, nonproductive cough, nausea and ORTIZ x3d. pt reports her ORTIZ is 9/10, sharp in nature, she is photophobic and sensitive to sound. pt was on 4LNC on arrival. We obtained a room air sat at 88%, pt came up to 92% on 2LNC. pt has PRN oxygen at home but does not use it all the time. pt received 125mg IV solumedrol in route. History of Present Illness HPI narrative: Patient is a 74-year-old female presenting with shortness of breath. Patient states she began feeling sick 2 days ago with cough, increasing shortness of breath and temperature of 99.5 F at home. This morning, patient took a breathing treatment at 4 AM and 8 AM without relief. Patient had placed herself on 2 L nasal cannula at home which she does not typically wear. Patient called EMS for transport to the ER. Patient unsure of any sick contacts. Patient complaining of headache. Patient denies chest pain, abdominal pain, nausea, vomiting, bowel or bladder dysfunction. EMS stated patient was placed on 4L NC for low oxygen saturation on their arrival. Patient was also treated with 125 mg IV Solu-Medrol by EMS. Related Data Previous Rx's ?Medication ?Instructions ?Recorded albuterol sulfate 0.63 mg/3 mL 0.63 mg (3 mL) inhalation Q6H 07/15/24 solution for nebulization shortness of breath #90 mL levothyroxine 125 mcg tablet See Rx Instructions .Route 10/16/24 .COMPLEX #90 tabs Allergies Allergy/AdvReac Type Severity Reaction Status Date / Time Penicillins Allergy Anaphylaxis Verified 11/14/24 09:45 [facility] Disclaimer: The information contained in this section may have been updated after the patient was seen, as this information can be updated by other users. Medical History Swelling of lower extremity Asthma exacerbation Eosinophilia Asthma GERD (gastroesophageal reflux disease) Impacted cerumen of right ear Impacted cerumen of right ear Hoarseness Chronic cough Acute respiratory failure with hypoxia CHF (congestive heart failure) Tachycardia Nodule of left lung Allergic rhinitis Encounter for screening for malignant neoplasm of lung Pneumonia COPD exacerbation Neuralgia Headache Seasonal allergic rhinitis COPD (chronic obstructive pulmonary disease) Screening for lung cancer Pulmonary emphysema Smoking greater than 30 pack years Tobacco abuse disorder Family history of asthma Dyspnea on exertion Tobacco abuse counseling Hypothyroidism (acquired) Diverticulitis Surgical History History of tonsillectomy History of arthroscopic knee surgery Family History Other Alcoholism Coronary artery disease Diabetes Hyperlipidemia Hypertension Substance abuse Thyroid disorder Social History Smoking Status: Former smoker smoking status stop date: may 2023 second hand exposure: Yes alcohol intake: never substance use type: denies use current occupational status: employed Travel in the last 8 weeks: None household members: family housing: house 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 Have you lived/traveled outside [place] in past 30 days?: No Contact w/someone who lives/traveled outside US past 30 days?: No Exposure to someone with infectious disease in past 14 days?: No Do you have a fever (greater than 100.4 F or 38 C)?: No Have you tested positive for COVID-19: No Exposed to someone with COVID-19 in past 14 days?: No Do you have a sore throat?: No Do you have a cough?: No Do you have any weakness?: No Do you have any diarrhea?: No Are you experiencing any unusual bleeding?: No Do you have any muscle aches/pain?: No Do you have any abdominal pain?: No Are you experiencing loss of taste or smell?: No Other Medical History Have you received the Flu Vaccine for this season: No Have you received the Pneumonia Vaccine: Yes ROS Obtained: Yes All systems reviewed & no additional complaints except as documented Physical Exam General General appearance: alert and in distress Head Head exam: atraumatic, normocephalic and normal inspection Eye Eye exam: Present normal appearance, PERRL and EOMI ENT ENT exam: Present normal exam, normal oropharynx, mucous membranes moist, normal external ear exam and other (2L NC) Neck Neck exam: Present normal inspection, full ROM and trachea midline; Absent meningismus or lymphadenopathy Chest Chest inspection: Present normal inspection and symmetric chest wall rise; Absent tenderness Respiratory Respiratory exam: Present respiratory distress Expanded Respiratory Exam Location: Left: decreased breath sounds, Right: decreased breath sounds, Upper: decreased breath sounds and Lower: decreased breath sounds Cardiovascular Cardiovascular exam: Present regular rate and normal rhythm; Absent JVD Abdominal Exam Abdominal exam: Present soft and normal bowel sounds; Absent distention, tenderness or guarding Extremities Exam Extremities exam: Present normal inspection, full ROM and normal capillary refill; Absent edema or calf tenderness Back Exam Back exam: Present normal inspection; Absent tenderness Neurological Exam Neurological exam: Present alert and oriented X3 Psychiatric Psychiatric exam: Present normal affect and normal mood Skin Skin exam: Present warm, dry, intact and normal color Lymphatic Lymphatic Findings: no adenopathy HEART Score HEART Score HEART Score assessment performed?: Yes History (anamnesis): Slightly suspicious ECG: Non-specific disturbance Age: >65 years Risk factors: 1-2 risk factors Troponin: 1-3x normal limit HEART Score: 5 Procedures Limited Ultrasound Indication:: Shortness of breath Views:: Bilateral lungs, parasternal long and short axis Findings:: Adequate lung sliding bilaterally, no consolidation, pneumothorax, significant pulmonary edema. Limited cardiac exam with no wall motion abnormalities, RV dilation, or pericardial effusion. Interpretation:: No invasive interventions required in the lungs or heart based on limited exam Critical Care Critical Care Time Critical Care Time: Yes Attestation: On 11/14/24, the high probability of a clinically significant, sudden or life threatening deterioration of the following system(s) required my full and direct attention, intervention and personal management. The time I documented below is in addition to time spent performing reported procedures but includes the following listed in this critical care notation. Total Time Total Critical Care Time: 35 Medical Decision Making Medical Records Medical records reviewed: Yes I reviewed the patient's medical records. Terrance Inquiry Pt receiving controlled substance: No Vital Signs Vital Signs: 11/14/24 09:27 11/14/24 09:33 11/14/24 10:00 Temperature 99.3 F Temperature Source Oral Pulse Rate 88 88 Pulse Rate [Left] 92 H Respiratory Rate 17 Blood Pressure 108/47 L 122/57 L Blood Pressure [Right Arm] 120/53 L Blood Pressure Mean [Right Arm] 75 Blood Pressure Source [Right Arm] Automatic Cuff Blood Pressure Position [Right Arm] Sitting 02 Sat by Pulse Oximetry 88 L 96 96 Oxygen Delivery Method Room Air Nasal Cannula Nasal Cannula Oxygen Flow Rate (LPM) 2 11/14/24 11:27 11/14/24 11:30 Temperature Temperature Source Pulse Rate 74 83 Pulse Rate [Left] Respiratory Rate 16 17 Blood Pressure 110/90 102/45 L Blood Pressure [Right Arm] Blood Pressure Mean [Right Arm] Blood Pressure Source [Right Arm] Blood Pressure Position [Right Arm] 02 Sat by Pulse Oximetry 92 L 92 L Oxygen Delivery Method Nasal Cannula Nasal Cannula Oxygen Flow Rate (LPM) 2 Lab Data Lab results reviewed: Yes I reviewed the patient's lab results. Labs: Lab Results 11/14/24 09:15: WBC 6.7, RBC 4.47, Hgb 13.8, Hct 41.8, MCV 93.5, MCH 30.9, MCHC 33.0, RDW 14.1, Plt Count 175, MPV 10.9 H, Neut % (Auto) 75.8, Lymph % (Auto) 14.7, [place] % (Auto) 8.5, Eos % (Auto) 0.0 L, Baso % (Auto) 0.6, Neut # (Auto) 5.1, Lymph # (Auto) 1.0, [place] # (Auto) 0.6, Eos # (Auto) 0.0, Baso # (Auto) 0.0, Sodium 138, Potassium 3.9, Chloride 103, Carbon Dioxide 27, Anion Gap 11.9, BUN 24 H, Creatinine 0.90, Estimated Creat Clear 84, Estimated GFR 62, Est GFR ( Amer) 74, Glucose 108 H, Calcium 8.8, Total Bilirubin 0.7, AST 52 H, ALT 34, Alkaline Phosphatase 73, Troponin I 0.04 H, NT-Pro-B Natriuret Pep 513 H, Total Protein 6.3, Albumin 4.1, Globulin 2.2, Albumin/Globulin Ratio 1.9 H 11/14/24 09:26: Chlamy pneumoniae PCR Not detected, Adenovirus (PCR) Not detected, B. pertussis DNA (PCR) Not detected, Coronavirus OC43 (PCR) Not detected, Coronavirus HKU1 (PCR) Not detected, Coronavirus 229E (PCR) Not detected, SARS-CoV-2 (PCR) Not detected, Coronavirus NL63 (PCR) Not detected, Human Metapneumovir PCR Not detected, Influenza A (H1) PCR Not detected, Influ A (H1N1/09) PCR Not detected, Influenza A (H3) PCR Detected A, Influenza Type A (PCR) Not detected, Influenza Type B (PCR) Not detected, M. pneumoniae (PCR) Not detected, Parainfluenza 1 (PCR) Not detected, Parainfluenza 2 (PCR) Not detected, Parainfluenza 3 (PCR) Not detected, Parainfluenza 4 (PCR) Not detected, RSV (PCR) Not detected, Entero/Rhino (PCR) Not detected 11/14/24 09:39: VBG pH 7.32, VBG pCO2 47.6, VBG pO2 67.7 H, VBG HCO3 23.9, VBG Total CO2 25.4, VBG O2 Saturation 94.0 H, VBG Base Excess -2.2, VBG Lactic Acid 2.0 11/14/24 11:15: Troponin I 0.04 H 11/14/24 09:15 11/14/24 09:15 Response Orders (Tests/Meds): ED MEDICATIONS Discontinued Medications Generic Name Dose Route Start Last Admin Trade Name Freq PRN Reason Stop Dose Admin Albuterol/Ipratropium 9 ml 11/14/24 09:22 11/14/24 09:30 Ipratropium/Albuterol 3 Ml Neb IH 11/14/24 09:23 9 ml ONCE ONE Administration Magnesium Sulfate 2 gm in 50 mls @ 50 mls/hr 11/14/24 09:22 11/14/24 09:30 Magnesium Sulfate 2gm/50ml Premix IV 11/14/24 10:21 50 mls/hr ONCE ONE Administration Ceftriaxone Sodium 1 gm/ 50 mls @ 100 mls/hr 11/14/24 10:48 11/14/24 11:08 Sodium Chloride IV 11/14/24 11:17 100 mls/hr ONCE ONE Administration Azithromycin 500 mg/ Sodium 250 mls @ 250 mls/hr 11/14/24 10:48 11/14/24 11:27 Chloride IV 11/14/24 10:49 250 mls/hr ONCE ONE Administration Ketorolac Tromethamine 15 mg 11/14/24 10:00 11/14/24 10:01 Ketorolac 30mg/Ml Vial IV 11/14/24 10:01 15 mg ONCE ONE Administration ORDERS Category Date Time Status CXR --portable [XR chest portable] Stat Exams 11/14/24 09:22 Taken POCUS Point of Care (ER Only) Stat Exams 11/14/24 10:00 Completed BNP [NT Pro Brain Natriuretic Pep.] Stat Lab 11/14/24 09:15 Completed CBC w/Auto Diff [Complete Blood Count Auto Diff] Stat Lab 11/14/24 09:15 Completed CMP [Comprehensive Metabolic Panel] Stat Lab 11/14/24 09:15 Completed Full Resp Panel w/COVID ([facility]) Routine Lab 11/14/24 09:26 Completed HIV Combo Routine Lab 11/14/24 09:28 Received Hepatitis C Ab Qual. W/ RFX Stat Lab 11/14/24 09:15 Received Trop I [Troponin I] Stat Lab 11/14/24 09:15 Completed Troponin I Q2H Lab 11/14/24 11:15 Completed Troponin I Q2H Lab 11/14/24 14:30 Ordered VBG [Venous Blood Gas] Stat RT 11/14/24 09:39 Completed ECG Data Tracing #1: ECG Narrative: Sinus rhythm with a rate of 87, no QTc prolongation, no significant ST elevation/depression no evidence of acute ischemia Tracing #2: ECG Narrative: EKG repeated due to elevated troponin. Repeat EKG demonstrates sinus rhythm with a rate of 98 and no evidence of acute ischemia with ST elevation/depression. A few intermittent PVCs noted. Patient has no complaint of chest pain at this time. ECG initial impression date: 11/14/24 ECG initial impression time: 10:22 MDM Narrative Medical Decision Narrative: In summary, this is a 74-year-old female presenting with shortness of breath. Patient has had cough and upper respiratory symptoms for the past 2 days. Differential diagnosis includes but is not limited to, asthma exacerbation, pneumonia, viral URI, ACS, PE, among others. In order to evaluate patient's symptoms, we will perform CBC, CMP, troponin, VBG, EKG, CXR, and full respiratory panel. Due to lack of breath sounds bilaterally, patient will be started on 3 rounds of DuoNebs and magnesium sulfate. On evaluation of patient's laboratory results, CBC negative for leukocytosis, anemia, thrombocytopenia. VBG with pH 7.32, no CO2 retention, lactic acid 2.0. CMP without actionable derangements. Initial troponin 0.04. CXR personally evaluated by me and significant for bilateral lower lobe opacity suggesting significant atelectasis versus infection. I personally performed a bedside limited ultrasound of the patient's lungs bilaterally as well as her limited cardiac exam given her history of CHF. Patient did not have evidence of pericardial effusion, wall motion abnormalities, or RV dilation. Lung zambrano did not demonstrate significant B-lines and adequate lung sliding was visualized bilaterally. Given patient's elevated initial troponin, despite lack of chest pain, repeat EKG performed without change or evidence of acute ischemia. Repeat troponin drawn at 2-hour nelda and is unchanged at 0.04. Patient's respiratory panel significant for influenza A (H3). On reevaluation, patient continues to require 2L NC which she does not chronically wear at home. This is keeping her oxygen saturations between 90 and 92%. Patient continues to feel short of breath and has difficulty speaking full sentences. After therapy performed in the ED, to include 3X DuoNebs, magnesium sulfate, Rocephin, azithromycin, Toradol for headache, patient has had improvement in aeration of lung zambrano and began coughing more frequently. Patient appears deconditioned and will have difficulty with ADLs at home. Patient was in agreement with admission at this time. I discussed the patient's case with the hospitalist who was in agreement with this plan. Patient admitted in stable condition. Izabel Doherty MD
[2024-11-14 09:42] LABS: VBG HCO3 23.9 mmol/L (23-30); VBG PCO2 47.6 mmol/L (35-51); VBG PH 7.32 mmol/L (7.31-7.41); VBG PO2 67.7 mmol/L (28-40); VBG Total CO2 25.4 mmol/L (23-27)
[2024-11-14 09:42] LABS: Alanine Aminotransferase 34 U/L (12-78); Albumin Level 4.1 g/dl (3.5-5.0); Albumin/Globulin Ratio 1.9 (1.1-1.8); Alkaline Phosphatase 73 U/L (38-126); Anion Gap 11.9 mEq/L (5-15); Aspartate Amino Transferase 52 U/L (14-36); Bilirubin,Total 0.7 mg/dl (0.2-1.3); Blood Urea Nitrogen 24 mg/dl (7-17); Calcium 8.8 mg/dl (8.4-10.2); Carbon Dioxide 27 mmol/L (22.0-30.0); Chloride 103 mmol/L (98-107); Creatinine Clearance Estimated 84 mL/min (50-200); Estimated Glomerular Filt Rate 62 ml/min (>60); GFR (African American) 74 ML/MIN (>60); Globulin 2.2 g/dL (1.3-3.2); Glucose 108 mg/dl (74-100); Potassium 3.9 mmoL/L (3.5-5.1); Sodium 138 mmol/L (136-145); Total Protein,Serum 6.3 g/dl (6.3-8.2)
[2024-11-14 09:43] LABS: VBG Base Excess -2.2 mmol/L (-2.4-2.3)
--- NOTE | 2024-11-14 09:53 | PC.NURSE ---
I rounded on the pt, she states her ORTIZ is worsening. She states she is not feeling better SOA rogers. no other complaints. call neal in reach. I notified Dr. Doherty about the pts ORTIZ, she ordered IV ketorolac
[2024-11-14 09:54] LABS: Troponin I 0.04 ng/ml (0.00-0.034)
--- NOTE | 2024-11-14 09:57 | PC.NURSE ---
I notified Eri in lab that Dr. Doherty is adding on a lab to the blood already collected.
[2024-11-14] MEDS: KETOROLAC 30MG/ML VIAL 15 MG IV (10:01)
--- NOTE | 2024-11-14 10:07 | PC.NURSE ---
Dr. Doherty bedside with US.
[2024-11-14 10:18] LABS: NT Pro Brain Natriuretic Pep. 513 pg/mL (0-125)
--- NOTE | 2024-11-14 10:18 | ECG_ITS ---
APPROVED REPORT Exam: Resting ECG HR:98 bpm ECG Measurements Heart Rate 98 AXES AZ 130 P 60 QRSd 97 QRS 75 QT 348 T 48 QTc 404 Conclusion SINUS RHYTHM WITH OCCASIONAL SUPRAVENTRICULAR PREMATURE COMPLEXES NONSPECIFIC ST & T-WAVE ABNORMALITY BORDERLINE ECG UNCONFIRMED REPORT Electronically signed by : OFELIA PALUMBO, 11/15/2024 00:42:02
--- NOTE | 2024-11-14 10:20 | PC.NURSE ---
Repeated EKG per Dr. Doherty. pt states her neb treatment is smothering her and took it off intermittently throughout admin. pt states her ORTIZ is 7/10 and has moved to her sinuses rather than the top of her head. Dr. Doherty notified, no new orders received. call neal in reach.
--- NOTE | 2024-11-14 10:21 | PC.NURSE ---
88% ON RA. 2L NC PLACED BACK ON PT
--- NOTE | 2024-11-14 10:47 | PC.NURSE ---
rounded on pt at this time states no needs,i gave granddaughter a chair so she did not have sit in floor. call light in reach
[2024-11-14] MEDS: CEFTRIAXONE SODIUM 1 GM in 0.9 % SODIUM CHLORIDE 50 ML IV (11:08)
--- NOTE | 2024-11-14 11:17 | PC.NURSE ---
2nd Trop drwn [id number]
--- NOTE | 2024-11-14 11:26 | PC.NURSE ---
ROUNDED ON PT, RESTING ON RIGHT SIDE. CALL LIGHT WITHIN REACH. DENIES NEEDS AT THIS TIME
[2024-11-14] MEDS: AZITHROMYCIN 500 MG in 0.9 % SODIUM CHLORIDE 250 ML 250 MG IV (11:27)
[2024-11-14 11:46] LABS: Troponin I 0.04 ng/ml (0.00-0.034)
--- NOTE | 2024-11-14 12:15 | PC.NURSE ---
DR ESTRADA SPEAKING WITH HOSPITALIST FOR ADMISSION
--- NOTE | 2024-11-14 12:16 | PC.NURSE ---
ANYA ARGUELLO speaking with hospitalist
--- NOTE | 2024-11-14 12:17 | PC.NURSE ---
pt states she has o2 at home through [employer], unaware on how often she is suppose to wear it. says she wears it if she isnt feeling well and sometimes at nights at 2-2.5l via nc. made aware and went to bedside.
--- NOTE | 2024-11-14 12:20 | PC.NURSE ---
INSPECTOR FILTERS NOTIFIED OF ADMISSION
[2024-11-14 12:22] LABS: Influenza AH3,PCR Detected (NotDetected)
--- NOTE | 2024-11-14 12:23 | PC.NURSE ---
Yu from lab called critical on patient, Flu AH3. Repeated and verified
[2024-11-14 12:32] LABS: Hepatitis C Ab Qual. W/ RFX NEGATIVE (Negative)
--- NOTE | 2024-11-14 12:40 | PC.NURSE ---
report called to fidel on second floor
[2024-11-14] MEDS: OSELTAMIVIR 75MG CAPSULE 75 MG PO ×2 (14:04→20:04)
[2024-11-14 14:08] LABS: HIV Combo NEGATIVE (Negative)
--- NOTE | 2024-11-14 14:15 | PC.NURSE ---
pt. states she is finished with her lasix per cardiology.
--- NOTE | 2024-11-14 14:29 | [facility].PHAINT1 ---
Pharmacy Intervention Comments: MEDICATION RECONCILIATION COMPLETE USING EXTERNAL PHARMACY FILL HISTORY.
[2024-11-14 14:53] LABS: Troponin I 0.03 ng/ml (0.00-0.034)
--- NOTE | 2024-11-14 17:33 | EXP.HP ---
History of Present Illness *Admission Date: 11/14/24 *Reason for visit:: Shortness of breath continue that was good *History of present illness: Rhea Pugh is a 74-year-old female with a medical history significant for COPD on room air (2 L as needed), hypothyroidism, GERD who presents with increasing shortness of breath and nonproductive cough. She states it started 3 days ago and has progressively gotten worse, so her granddaughter brought her in today. Denies chest pain, abdominal pain, urinary symptoms, constipation/diarrhea. Workup in the ED significant for influenza A, and decreased air movement. She was given breathing treatments and steroids in the ED without significant improvement. Requiring 2 L for appropriate saturations, new requirement. Case discussed with ED provider and decision was made to admit patient for acute hypoxic respiratory failure secondary to COPD exacerbation from the flu. Of note, she states she has stopped taking her Lasix prescribed by cardiology a few weeks ago. However, she does not seem volume overloaded. BNP is marginally elevated to 513. No evidence of volume overload on CXR. [facility] Disclaimer: The information contained in this section may have been updated after the patient was seen, as this information can be updated by other users. Medical History Swelling of lower extremity Asthma exacerbation Eosinophilia Asthma GERD (gastroesophageal reflux disease) Impacted cerumen of right ear Impacted cerumen of right ear Hoarseness Chronic cough Acute respiratory failure with hypoxia CHF (congestive heart failure) Tachycardia Nodule of left lung Allergic rhinitis Encounter for screening for malignant neoplasm of lung Pneumonia COPD exacerbation Neuralgia Headache Seasonal allergic rhinitis COPD (chronic obstructive pulmonary disease) Screening for lung cancer Pulmonary emphysema Smoking greater than 30 pack years Tobacco abuse disorder Family history of asthma Dyspnea on exertion Tobacco abuse counseling Hypothyroidism (acquired) Diverticulitis Surgical History History of tonsillectomy History of arthroscopic knee surgery Family History Other Alcoholism Coronary artery disease Diabetes Hyperlipidemia Hypertension Substance abuse Thyroid disorder Social History (Updated 11/14/24 @ 15:59 by Matt Jansen RN) Smoking Status: Former smoker smoking status stop date: may 2023 second hand exposure: Yes alcohol intake: never substance use type: denies use current occupational status: employed Travel in the last 8 weeks: None household members: family housing: house 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 Have you lived/traveled outside [place] in past 30 days?: No Contact w/someone who lives/traveled outside [place] past 30 days?: No Exposure to someone with infectious disease in past 14 days?: No Do you have a fever (greater than 100.4 F or 38 C)?: No Have you tested positive for COVID-19: No Exposed to someone with COVID-19 in past 14 days?: No Do you have a sore throat?: No Do you have a cough?: No Do you have any weakness?: No Do you have any diarrhea?: No Are you experiencing any unusual bleeding?: No Do you have any muscle aches/pain?: No Do you have any abdominal pain?: No Are you experiencing loss of taste or smell?: No Other Medical History Have you received the Flu Vaccine for this season: Yes Have you received the Pneumonia Vaccine: Yes Meds Home Medications and Allergies Home Medications ?Medication ?Instructions ?Recorded ?Confirmed ?Type budesonide 160 mcg-glycopyr 9 2 puff inhalation BIDRT 11/14/24 11/14/24 History mcg-formot 4.8 mcg/actuation HFA inhaler (Breztri Aerosphere) famotidine 20 mg tablet 40 mg PO BID 11/14/24 11/14/24 History furosemide 40 mg tablet 40 mg PO Q2D 11/14/24 11/14/24 History levothyroxine 125 mcg tablet 125 mcg PO DAILYDM 11/14/24 11/14/24 History montelukast 10 mg tablet 10 mg PO PM 11/14/24 11/14/24 History spironolactone 25 mg tablet 25 mg PO Q2D 11/14/24 11/14/24 History New Prescriptions to Start Prescriptions: Allergies Allergy/AdvReac Type Severity Reaction Status Date / Time Penicillins Allergy Anaphylaxis Verified 11/14/24 09:45 Exam Data for Last 24 hours Vital signs and Labs for Last 24 Hours: Temp Pulse Resp BP Pulse Ox O2 Del Method O2 Flow Rate 98.0 F 62 22 131/60 94 L Nasal Cannula 2 11/14/24 16:00 11/14/24 16:00 11/14/24 16:00 11/14/24 16:00 11/14/24 16:00 11/14/24 16:39 11/14/24 16:39 Laboratory Results - last 24 hr 11/14/24 09:15: WBC 6.7, RBC 4.47, Hgb 13.8, Hct 41.8, MCV 93.5, MCH 30.9, MCHC 33.0, RDW 14.1, Plt Count 175, MPV 10.9 H, Neut % (Auto) 75.8, Lymph % (Auto) 14.7, [place] % (Auto) 8.5, Eos % (Auto) 0.0 L, Baso % (Auto) 0.6, Neut # (Auto) 5.1, Lymph # (Auto) 1.0, [place] # (Auto) 0.6, Eos # (Auto) 0.0, Baso # (Auto) 0.0, Sodium 138, Potassium 3.9, Chloride 103, Carbon Dioxide 27, Anion Gap 11.9, BUN 24 H, Creatinine 0.90, Estimated Creat Clear 84, Estimated GFR 62, Est GFR ( Amer) 74, Glucose 108 H, Calcium 8.8, Total Bilirubin 0.7, AST 52 H, ALT 34, Alkaline Phosphatase 73, Troponin I 0.04 H, NT-Pro-B Natriuret Pep 513 H, Total Protein 6.3, Albumin 4.1, Globulin 2.2, Albumin/Globulin Ratio 1.9 H, HCV Ab CHELSEA w/Rflx PCR Qn Negative 11/14/24 09:26: Chlamy pneumoniae PCR Not detected, Adenovirus (PCR) Not detected, B. pertussis DNA (PCR) Not detected, Coronavirus OC43 (PCR) Not detected, Coronavirus HKU1 (PCR) Not detected, Coronavirus 229E (PCR) Not detected, SARS-CoV-2 (PCR) Not detected, Coronavirus NL63 (PCR) Not detected, Human Metapneumovir PCR Not detected, Influenza A (H1) PCR Not detected, Influ A (H1N1/09) PCR Not detected, Influenza A (H3) PCR Detected A, Influenza Type A (PCR) Not detected, Influenza Type B (PCR) Not detected, M. pneumoniae (PCR) Not detected, Parainfluenza 1 (PCR) Not detected, Parainfluenza 2 (PCR) Not detected, Parainfluenza 3 (PCR) Not detected, Parainfluenza 4 (PCR) Not detected, RSV (PCR) Not detected, Entero/Rhino (PCR) Not detected 11/14/24 09:28: HIV Ag/Ab Combo Qual Negative 11/14/24 09:39: VBG pH 7.32, VBG pCO2 47.6, VBG pO2 67.7 H, VBG HCO3 23.9, VBG Total CO2 25.4, VBG O2 Saturation 94.0 H, VBG Base Excess -2.2, VBG Lactic Acid 2.0 11/14/24 11:15: Troponin I 0.04 H 11/14/24 14:25: Troponin I 0.03 I & O for Last 24 hours: Intake & Output 11/11/24 11/12/24 11/13/24 11/14/24 23:59 23:59 23:59 23:59 Intake Total 420 / 420 Balance 420 / 420 Weight 103.051 kg Constitutional Constitutional: no acute distress *Routine HEENT Exam Head: Present normocephalic Eye: Present EOMI and PERRL ENT: Present mucous membranes moist *Routine Neck Exam Neck: Present supple; Absent lymphadenopathy *Routine Respiratory Exam Respiratory: Present wheezes and diminished air movement; Absent CTA bilaterally *Routine Cardiovascular Exam Cardiovascular: Present RRR *Routine Abdominal Exam Abdominal: Present soft and normoactive bowel sounds; Absent tenderness *Routine Rectal Exam Rectal:: deferred *Routine Genitalia Exam Genitalia:: deferred *Routine Extremities Exam Extremities: Absent cyanosis, clubbing or edema *Routine Skin Exam Skin: Present warm; Absent rash *Routine Neurological Exam Neurological: Present alert and oriented X3 Assessment and Plan *Assessment and plan (1) Influenza: Status: Acute Category: Medical Code(s): J11.1 - Influenza due to unidentified influenza virus with other respiratory manifestations (2) Acute exacerbation of COPD with asthma: Status: Acute Category: Medical Code(s): J44.1 - Chronic obstructive pulmonary disease with (acute) exacerbation Plan Rhea Pugh is a 74-year-old female with a medical history significant for COPD on room air (2 L as needed), hypothyroidism, GERD who presents with increasing shortness of breath and nonproductive cough. She states it started 3 days ago and has progressively gotten worse, so her granddaughter brought her in today. Denies chest pain, abdominal pain, urinary symptoms, constipation/diarrhea. Workup in the ED significant for influenza A, and decreased air movement. She was given breathing treatments and steroids in the ED without significant improvement. Requiring 2 L for appropriate saturations, new requirement. Case discussed with ED provider and decision was made to admit patient for acute hypoxic respiratory failure secondary to COPD exacerbation from the flu. Of note, she states she has stopped taking her Lasix prescribed by cardiology a few weeks ago. However, she does not seem volume overloaded. BNP is marginally elevated to 513. No evidence of volume overload on CXR. #Acute hypoxic respiratory failure #COPD exacerbation #Influenza A ? Progressive shortness of breath, nonproductive cough. Influenza A positive on respiratory panel. WBC normal, no signs of sepsis. VBG reassuring. ? CXR does not show pneumonia, but does suggest severe emphysema consistent with previous CXRs. ? DuoNebs every 4 hours, Pulmicort twice daily. ? Doxycycline day 2/5 starting tomorrow. Azithromycin given in ED. ? Prednisone day 2/5 starting tomorrow. IV Solu-Medrol given in the ED. ? Tamiflu 75 mg twice daily. ? Follow-up sputum culture. #Elevated BNP ? BNP 513, without signs of volume overload. Continue to monitor. #Hypothyroidism ? Resume home levothyroxine 125 mcg. ? Follow-up morning TFTs. #GERD ? Start Protonix 40 mg. Full code DVT prophylaxis: Lovenox 40 mg
[2024-11-14] MEDS: DOXYCYCLINE HYCLATE 100 MG in 0.9 % SODIUM CHLORIDE 250 ML 166.667 MG IV (18:35)
[2024-11-14] MEDS: IPRATROPIUM/ALBUTEROL 3 ML NEB IH ×2 (18:41→22:42)
[2024-11-14] MEDS: BUDESONIDE 0.5MG/2ML NEB 0.5 MG IH (18:41)
[2024-11-14] MEDS: PANTOPRAZOLE 40MG TABLET 40 MG PO (20:04)
[2024-11-15] VITALS (12 sets, daily range): BP systolic 119–148; BP diastolic 55–80; PULSE 70–98; RESP 18–20; TEMP 36.4–37.4; O2SAT 93–96; BMI 38.9
[2024-11-15] MEDS: IPRATROPIUM/ALBUTEROL 3 ML NEB IH ×5 (01:56→22:05)
--- NOTE | 2024-11-15 04:28 | PC.NURSE ---
Pt A&OX4 and has tolerated 2L nasal cannula. Lung sounds diminished and bowel sounds active. She has had a none productive cough. She has ambulated with Standby assist. Receiving IV antibiotics. Family member has remained at bedside. No complaints at this time, call light within reach.
[2024-11-15] MEDS: DOXYCYCLINE HYCLATE 100 MG in 0.9 % SODIUM CHLORIDE 250 ML 166.667 MG IV ×2 (05:35→18:00)
[2024-11-15 06:04] LABS: Albumin Level 4.3 g/dl (3.5-5.0); Chloride 105 mmol/L (98-107); Potassium 4.2 mmoL/L (3.5-5.1); Sodium 139 mmol/L (136-145)
[2024-11-15 06:06] LABS: Anion Gap 11.2 mEq/L (5-15); Blood Urea Nitrogen 23 mg/dl (7-17); Carbon Dioxide 27 mmol/L (22.0-30.0); Creatinine Clearance Estimated 83 mL/min (50-200); Estimated Glomerular Filt Rate 98 ml/min (>60); GFR (African American) 119 ML/MIN (>60)
[2024-11-15 06:07] LABS: Alanine Aminotransferase 46 U/L (12-78); Albumin/Globulin Ratio 2.4 (1.1-1.8); Alkaline Phosphatase 63 U/L (38-126); Aspartate Amino Transferase 80 U/L (14-36); Basophils % 0.1 % (0.1-2.0); Bilirubin,Total 0.3 mg/dl (0.2-1.3); Calcium 8.8 mg/dl (8.4-10.2); Globulin 1.8 g/dL (1.3-3.2); Glucose 138 mg/dl (74-100); Hematocrit 41.3 % (37.0-47.0); Hemoglobin 13.8 g/dL (12.2-16.2); Lymphocytes # 0.7 K/mm3 (0.7-4.5); Lymphocytes % 10.6 % (10-50); Magnesium 2.3 mg/dl (1.6-2.3); Mean Corpuscular HGB Conc 33.4 g/dL (31.8-35.4); Mean Corpuscular Hemoglobin 30.8 pg (27.0-31.2); Mean Corpuscular Volume 92.2 fl (81-99); Mean Platelet Volume 10.6 fl (7.4-10.4); Monocytes # 0.5 K/mm3 (0.1-1.0); Monocytes % 6.9 % (1.7-9.3); Neutrophils # 5.6 K/mm3 (1.8-7.8); Platelet Count 182 K/mm3 (142-424); Red Blood Count 4.48 M/mm3 (4.20-5.40); Red Cell Distribution Width 13.5 % (11.5-17.5); Total Protein,Serum 6.1 g/dl (6.3-8.2); White Blood Count 6.8 K/mm3 (4.8-10.8)
[2024-11-15] MEDS: BUDESONIDE 0.5MG/2ML NEB 0.5 MG IH ×2 (06:09→18:54)
[2024-11-15] MEDS: OSELTAMIVIR 75MG CAPSULE 75 MG PO ×2 (09:18→20:41)
[2024-11-15] MEDS: predniSONE 20MG TAB 40 MG PO (09:18)
[2024-11-15] MEDS: ENOXAPARIN 40MG/0.4ML SYRINGE 40 MG SUBCUT (09:18)
[2024-11-15] MEDS: BENZONATATE 100MG CAPSULE 200 MG PO ×2 (09:18→14:41)
--- NOTE | 2024-11-15 12:12 | CT_ITS ---
PROCEDURE INFORMATION: Exam: CTA Chest With Contrast Exam date and time: 11/15/2024 12:49 PM Age: 74 years old Clinical indication: Cough; Additional info: Hypoxia, cough TECHNIQUE: Imaging protocol: Computed tomographic angiography of the chest with contrast. Exam focused on the arteries. 3D rendering (Not supervised by radiologist): MIP and/or 3D reconstructed images were created by the technologist. Radiation optimization: All CT scans at this facility use at least one of these dose optimization techniques: automated exposure control; mA and/or kV adjustment per patient size (includes targeted exams where dose is matched to clinical indication); or iterative reconstruction. Contrast material: ISO 370; Contrast volume: 70 ml; Contrast route: INTRAVENOUS (IV); COMPARISON: CT ANGIO CHEST PE PROTOCOL 07/11/2023 12:54 PM FINDINGS: Pulmonary arteries: No evidence of filling defects to suggest pulmonary emboli. Aorta: Unremarkable. No aortic aneurysm. No aortic dissection. Trachea: Main airways are patent. Lungs: Upper lobe predominant centrilobular emphysema noted. Pre-existing pulmonary nodules are not substantially changed. For instance, right middle lobe 4 mm nodule (series 7, image 65). Left lower lobe 4 mm nodule (series 7, image 70). Pleural spaces: No pneumothorax. No pleural effusion. Heart: Unremarkable. No cardiomegaly. No pericardial effusion. Heart RV/LV ratio: The RV/LV ratio is less than 1. Coronary arteries: There is mild atherosclerotic calcification of the coronary arteries. Lymph nodes: Calcified mediastinal and hilar lymph nodes suggest prior granulomatous exposure. Spleen: Multiple splenic granulomas Bones/joints: Unremarkable. No acute fracture. Soft tissues: Unremarkable. IMPRESSION: 1. No evidence of filling defects to suggest pulmonary emboli. 2. Pre-existing pulmonary nodules are not substantially changed. This patient is already enrolled in [place] lung screening program. COMMENTS: The presence of pulmonary emphysema on CT is an independent risk factor for lung cancer. In the absence of a history or active diagnosis of lung cancer, it is recommended that this patient with emphysema be evaluated for enrollment in a low dose CT lung cancer screening program.
[2024-11-15] MEDS: IOPAMIDOL-370 (76%);100ML BOTTLE 70 ML IV (12:51)
[2024-11-15] MEDS: 0.9 % SODIUM CHLORIDE 50 ML VIAL IV (12:51)
[2024-11-15] MEDS: SODIUM CHLORIDE 0.9% 10ML SYR (RAD ONLY) 10 ML IV (12:51)
[2024-11-15] MEDS: FUROSEMIDE 40MG/4ML VIAL 40 MG IV (13:26)
[2024-11-15] MEDS: BELLADONNA ALKALOIDS 60 ML ML PO (13:26)
[2024-11-15] MEDS: LEVOTHYROXINE 125MCG (0.125MG) TAB 125 MCG PO (14:41)
[2024-11-15] MEDS: METHYLPREDNISOLONE SOD SUCC 40MG VIAL 40 MG IV (16:21)
--- NOTE | 2024-11-15 17:44 | PC.NURSE ---
Pt alert and oriented x4. on 3L NC. Wheezes noted upon auscultation. Pt sitting up in bed most of day. ambulates to bathroom with assist x1. Family at bedside. Pt requested cough medicine and was medicated per MAR. No complaints at this time will continue to monitor.
[2024-11-15] MEDS: MONTELUKAST SODIUM 10MG TAB 10 MG PO (18:00)
[2024-11-15] MEDS: PANTOPRAZOLE 40MG TABLET 40 MG PO (20:41)
[2024-11-15] MEDS: GUAIFENESIN/DEXTROMETHORPHAN 200MG/20MG 10ML UDC 10 ML PO (20:41)
--- NOTE | 2024-11-15 22:32 | EXP.PN ---
Subjective *Date: 11/15/24 *Time: 22:32 Interval history: Patient continues to have good amount of nonproductive cough, tight airway. Saturating well on 2 L. Increased to Solu-Medrol 40 mg twice daily, obtain CTA with acute unremarkable findings, started DuoNebs as needed in addition to scheduled. Given a dose of IV Lasix 40 mg. Exam Data for Last 24 hours Vital signs and Labs for Last 24 Hours: Temp Pulse Resp BP Pulse Ox O2 Del Method O2 Flow Rate 97.9 F 74 19 139/67 95 Nasal Cannula 2 11/15/24 19:52 11/15/24 22:17 11/15/24 19:52 11/15/24 19:52 11/15/24 19:52 11/15/24 19:52 11/15/24 19:52 Laboratory Results - last 24 hr 11/15/24 05:46: WBC 6.8, RBC 4.48, Hgb 13.8, Hct 41.3, MCV 92.2, MCH 30.8, MCHC 33.4, RDW 13.5, Plt Count 182, MPV 10.6 H, Neut % (Auto) 82.0 H, Lymph % (Auto) 10.6, [place] % (Auto) 6.9, Eos % (Auto) 0.0 L, Baso % (Auto) 0.1, Neut # (Auto) 5.6, Lymph # (Auto) 0.7, [place] # (Auto) 0.5, Eos # (Auto) 0.0, Baso # (Auto) 0.0, Sodium 139, Potassium 4.2, Chloride 105, Carbon Dioxide 27, Anion Gap 11.2, BUN 23 H, Creatinine 0.60 D, Estimated Creat Clear 83, Estimated GFR 98, Est GFR ( Amer) 119 D, Glucose 138 H D, Calcium 8.8, Magnesium 2.3, Total Bilirubin 0.3, AST 80 H D, ALT 46 D, Alkaline Phosphatase 63, Total Protein 6.1 L, Albumin 4.3, Globulin 1.8, Albumin/Globulin Ratio 2.4 H I & O for Last 24 hours: Intake & Output 11/12/24 11/13/24 11/14/24 11/15/24 23:59 23:59 23:59 23:59 Intake Total 420 / 870 1500 / 1500 Output Total 0 / 0 0 / 0 Balance 420 / 870 1500 / 1500 Weight 103.051 kg 103.6 kg Constitutional Constitutional: no acute distress *Routine HEENT Exam Head: Present normocephalic Eye: Present EOMI and PERRL ENT: Present mucous membranes moist *Routine Neck Exam Neck: Present supple; Absent lymphadenopathy *Routine Respiratory Exam Respiratory: Present wheezes and diminished air movement *Routine Cardiovascular Exam Cardiovascular: Present RRR *Routine Abdominal Exam Abdominal: Present soft and normoactive bowel sounds; Absent tenderness *Routine Extremities Exam Extremities: Absent cyanosis, clubbing or edema *Routine Skin Exam Skin: Present warm; Absent rash *Routine Neurological Exam Neurological: Present alert and oriented X3 Assessment and Plan *Assessment and plan (1) Influenza: Status: Acute Category: Medical Code(s): J11.1 - Influenza due to unidentified influenza virus with other respiratory manifestations (2) Acute exacerbation of COPD with asthma: Status: Acute Category: Medical Code(s): J44.1 - Chronic obstructive pulmonary disease with (acute) exacerbation Plan Rhea Pugh is a 74-year-old female with a medical history significant for COPD on room air (2 L as needed), hypothyroidism, GERD who presents with increasing shortness of breath and nonproductive cough. She states it started 3 days ago and has progressively gotten worse, so her granddaughter brought her in today. Denies chest pain, abdominal pain, urinary symptoms, constipation/diarrhea. Workup in the ED significant for influenza A, and decreased air movement. She was given breathing treatments and steroids in the ED without significant improvement. Requiring 2 L for appropriate saturations, new requirement. Case discussed with ED provider and decision was made to admit patient for acute hypoxic respiratory failure secondary to COPD exacerbation from the flu. Of note, she states she has stopped taking her Lasix prescribed by cardiology a few weeks ago. However, she does not seem volume overloaded. BNP is marginally elevated to 513. No evidence of volume overload on CXR. #Acute hypoxic respiratory failure #COPD exacerbation #Influenza A ? Progressive shortness of breath, nonproductive cough. Influenza A positive on respiratory panel. WBC normal, no signs of sepsis. VBG reassuring. ? CXR does not show pneumonia, but does suggest severe emphysema consistent with previous CXRs. ? DuoNebs every 4 hours, Pulmicort twice daily. ? Doxycycline day 2/5 . Azithromycin given in ED. ? IV Solu-Medrol 40 mg twice daily, increased from his prednisone as patient continues to have increased work of breathing and tight airways. ? CTA chest unremarkable for acute findings, PE. ? Tamiflu 75 mg twice daily. ? Follow-up sputum culture. #Elevated BNP ? BNP 513, without signs of volume overload. Continue to monitor. #Hypothyroidism ? Resume home levothyroxine 125 mcg. ? Follow-up morning TFTs. #GERD ? Start Protonix 40 mg. Full code DVT prophylaxis: Lovenox 40 mg
[2024-11-16] MEDS: IPRATROPIUM/ALBUTEROL 3 ML NEB IH ×3 (01:38→10:39)
[2024-11-16 01:45] VITALS: PULSE 77
[2024-11-16 01:46] VITALS: PULSE 72
[2024-11-16 04:00] VITALS: BP 126/73; PULSE 82; RESP 18; TEMP 37.2; O2SAT 92; BMI 39.2
[2024-11-16] MEDS: METHYLPREDNISOLONE SOD SUCC 40MG VIAL 40 MG IV (04:05)
--- NOTE | 2024-11-16 04:39 | PC.NURSE ---
Pt A&OX4. She has tolerated 2L nasal cannula. Receiving duonebs q4. She has still had a non productive cough but reports it is much better then the night before. Currently sitting up in bed with call light within reach.
[2024-11-16] MEDS: DOXYCYCLINE HYCLATE 100 MG in 0.9 % SODIUM CHLORIDE 250 ML 166.667 MG IV (06:12)
[2024-11-16 06:42] LABS: VBG HCO3 23.3 mmol/L (23-30); VBG Oxygen Saturation 97.6 % (50-70); VBG PCO2 36.4 mmol/L (35-51); VBG PH 7.43 mmol/L (7.31-7.41); VBG PO2 93.8 mmol/L (28-40); VBG Total CO2 24.5 mmol/L (23-27)
[2024-11-16 06:43] LABS: Lactate Venous 1.9 mmol/L (0.4-2.0)
[2024-11-16 06:50] LABS: Basophils % 0.1 % (0.1-2.0); Hematocrit 42.9 % (37.0-47.0); Hemoglobin 14.1 g/dL (12.2-16.2); Lymphocytes # 0.8 K/mm3 (0.7-4.5); Lymphocytes % 8.6 % (10-50); Mean Corpuscular HGB Conc 32.9 g/dL (31.8-35.4); Mean Corpuscular Hemoglobin 30.4 pg (27.0-31.2); Mean Corpuscular Volume 92.5 fl (81-99); Mean Platelet Volume 11.1 fl (7.4-10.4); Monocytes # 0.5 K/mm3 (0.1-1.0); Monocytes % 4.7 % (1.7-9.3); Neutrophils # 8.2 K/mm3 (1.8-7.8); Neutrophils % 86.3 % (37.0-80.0); Platelet Count 213 K/mm3 (142-424); Red Blood Count 4.64 M/mm3 (4.20-5.40); Red Cell Distribution Width 13.7 % (11.5-17.5); White Blood Count 9.5 K/mm3 (4.8-10.8)
[2024-11-16] MEDS: LEVOTHYROXINE 125MCG (0.125MG) TAB 125 MCG PO (06:58)
[2024-11-16 07:09] VITALS: PULSE 85; PULSE 88; O2SAT 94
[2024-11-16] MEDS: BUDESONIDE 0.5MG/2ML NEB 0.5 MG IH (07:10)
[2024-11-16 07:14] LABS: Alanine Aminotransferase 49 U/L (12-78); Albumin/Globulin Ratio 1.9 (1.1-1.8); Alkaline Phosphatase 65 U/L (38-126); Anion Gap 11.1 mEq/L (5-15); Aspartate Amino Transferase 74 U/L (14-36); Bilirubin,Total 0.3 mg/dl (0.2-1.3); Blood Urea Nitrogen 29 mg/dl (7-17); Carbon Dioxide 30 mmol/L (22.0-30.0); Chloride 105 mmol/L (98-107); Creatinine Clearance Estimated 84 mL/min (50-200); Estimated Glomerular Filt Rate 82 ml/min (>60); GFR (African American) 100 ML/MIN (>60); Globulin 2.1 g/dL (1.3-3.2); Glucose 145 mg/dl (74-100); Magnesium 2.2 mg/dl (1.6-2.3); Potassium 4.1 mmoL/L (3.5-5.1); Sodium 142 mmol/L (136-145); Total Protein,Serum 6.1 g/dl (6.3-8.2)
[2024-11-16 08:00] VITALS: BP 131/63; PULSE 96; RESP 20; TEMP 36.7; O2SAT 94
[2024-11-16] MEDS: ENOXAPARIN 40MG/0.4ML SYRINGE 40 MG SUBCUT (08:31)
[2024-11-16] MEDS: OSELTAMIVIR 75MG CAPSULE 75 MG PO (08:31)
--- NOTE | 2024-11-16 10:35 | EXP.DC.SUM ---
General Admission date:: 11/14/24 HPI HPI HPI: Rhea Pugh is a 74-year-old female with a medical history significant for COPD on room air (2 L as needed), hypothyroidism, GERD who presents with increasing shortness of breath and nonproductive cough. She states it started 3 days ago and has progressively gotten worse, so her granddaughter brought her in today. Denies chest pain, abdominal pain, urinary symptoms, constipation/diarrhea. Workup in the ED significant for influenza A, and decreased air movement. She was given breathing treatments and steroids in the ED without significant improvement. Requiring 2 L for appropriate saturations, new requirement. Case discussed with ED provider and decision was made to admit patient for acute hypoxic respiratory failure secondary to COPD exacerbation from the flu. Of note, she states she has stopped taking her Lasix prescribed by cardiology a few weeks ago. However, she does not seem volume overloaded. BNP is marginally elevated to 513. No evidence of volume overload on CXR. Hospital Course Hospital Course Hospital Course: Rhea Pugh is a 74-year-old female with a medical history significant for COPD on room air (2 L as needed), hypothyroidism, GERD who presents with increasing shortness of breath and nonproductive cough. She states it started 3 days ago and has progressively gotten worse, so her granddaughter brought her in today. Denies chest pain, abdominal pain, urinary symptoms, constipation/diarrhea. Workup in the ED significant for influenza A, and decreased air movement. She was given breathing treatments and steroids in the ED without significant improvement. Requiring 2 L for appropriate saturations, new requirement. Case discussed with ED provider and decision was made to admit patient for acute hypoxic respiratory failure secondary to COPD exacerbation from the flu. Of note, she states she has stopped taking her Lasix prescribed by cardiology a few weeks ago. However, she does not seem volume overloaded. BNP is marginally elevated to 513. No evidence of volume overload on CXR. #Acute hypoxic respiratory failure #COPD exacerbation #Influenza A ? Presented with progressive shortness of breath, nonproductive cough. Influenza A positive on respiratory panel. WBC normal, no signs of sepsis. VBG reassuring. ? CXR does not show pneumonia, but does suggest severe emphysema consistent with previous CXRs. ? Patient continued to have increased work of breathing during admission, CTA obtained without evidence of PE or acute intrapulmonary findings. ? Gradually improved with DuoNebs, Pulmicort, doxycycline, Solu-Medrol, Tamiflu. ? Saturating appropriately on 2 L nasal cannula. Saturated 88% on room air at rest. ? Discharged with prednisone, doxycycline, Tamiflu for 3 more days, and DuoNebs as needed. Continue Breztri twice a day. ? Advised to follow-up with pulmonology within 1 week. #Elevated BNP ? BNP 513, without signs of volume overload. ECHO July 2024 normal biventricular function. #Hypothyroidism ? Resume home levothyroxine 125 mcg. #GERD ? Started Protonix 40 mg. Total time spent on discharge: 32 minutes on chart review, counseling, documentation, and direct care with patient. Exam Data for Last 24 hours Vital signs and Labs for Last 24 Hours: Temp Pulse Resp BP Pulse Ox O2 Del Method O2 Flow Rate 98.1 F 96 H 20 131/63 94 L Room Air 2 11/16/24 08:00 11/16/24 08:00 11/16/24 08:00 11/16/24 08:00 11/16/24 08:00 11/16/24 09:00 11/16/24 08:00 Laboratory Results - last 24 hr 11/16/24 06:19: WBC 9.5 D, RBC 4.64, Hgb 14.1, Hct 42.9, MCV 92.5, MCH 30.4, MCHC 32.9, RDW 13.7, Plt Count 213, MPV 11.1 H, Neut % (Auto) 86.3 H, Lymph % (Auto) 8.6 L, [place] % (Auto) 4.7, Eos % (Auto) 0.0 L, Baso % (Auto) 0.1, Neut # (Auto) 8.2 H, Lymph # (Auto) 0.8, Cid[place] # (Auto) 0.5, Eos # (Auto) 0.0, Baso # (Auto) 0.0, Sodium 142, Potassium 4.1, Chloride 105, Carbon Dioxide 30, Anion Gap 11.1, BUN 29 H D, Creatinine 0.70, Estimated Creat Clear 84, Estimated GFR 82, Est GFR ( Amer) 100, Glucose 145 H, Calcium 9.0, Magnesium 2.2, Total Bilirubin 0.3, AST 74 H, ALT 49, Alkaline Phosphatase 65, Total Protein 6.1 L, Albumin 4.0, Globulin 2.1, Albumin/Globulin Ratio 1.9 H 11/16/24 06:20: VBG pH 7.43 H, VBG pCO2 36.4, VBG pO2 93.8 H, VBG HCO3 23.3, VBG Total CO2 24.5, VBG O2 Saturation 97.6 H, VBG Base Excess -1.0, VBG Lactic Acid 1.9 I & O for Last 24 hours: Intake & Output 11/13/24 11/14/24 11/15/24 11/16/24 23:59 23:59 23:59 23:59 Intake Total 420 / 870 1500 / 1950 1108 / 1108 Output Total 0 / 0 0 / 0 0 / 0 Balance 420 / 870 1500 / 1950 1108 / 1108 Weight 103.051 kg 103.6 kg 104.372 kg Constitutional Constitutional: no acute distress *Routine HEENT Exam Head: Present normocephalic Eye: Present EOMI and PERRL ENT: Present mucous membranes moist *Routine Neck Exam Neck: Present supple; Absent lymphadenopathy *Routine Respiratory Exam Respiratory: Present wheezes *Routine Cardiovascular Exam Cardiovascular: Present RRR *Routine Abdominal Exam Abdominal: Present soft and normoactive bowel sounds; Absent tenderness *Routine Extremities Exam Extremities: Absent cyanosis, clubbing or edema *Routine Skin Exam Skin: Present warm; Absent rash *Routine Neurological Exam Neurological: Present alert and oriented X3 Results Data Completed and Pending Labs on day of discharge: Labs from last 24 hours 11/16/24 11/16/24 06:20 06:19 WBC 9.5 D RBC 4.64 Hgb 14.1 Hct 42.9 MCV 92.5 MCH 30.4 MCHC 32.9 RDW 13.7 Plt Count 213 MPV 11.1 H Neut % (Auto) 86.3 H Lymph % (Auto) 8.6 L Cidra % (Auto) 4.7 Eos % (Auto) 0.0 L Baso % (Auto) 0.1 Neut # (Auto) 8.2 H Lymph # (Auto) 0.8 Cidra # (Auto) 0.5 Eos # (Auto) 0.0 Baso # (Auto) 0.0 VBG pH 7.43 H VBG pCO2 36.4 VBG pO2 93.8 H VBG HCO3 23.3 VBG Total CO2 24.5 VBG O2 Saturation 97.6 H VBG Base Excess -1.0 VBG Lactic Acid 1.9 Sodium 142 Potassium 4.1 Chloride 105 Carbon Dioxide 30 Anion Gap 11.1 BUN 29 H D Creatinine 0.70 Estimated Creat Clear 84 Estimated GFR 82 Est GFR ( Amer) 100 Glucose 145 H Calcium 9.0 Magnesium 2.2 Total Bilirubin 0.3 AST 74 H ALT 49 Alkaline Phosphatase 65 Total Protein 6.1 L Albumin 4.0 Globulin 2.1 Albumin/Globulin Ratio 1.9 H DS: Diagnosis Discharge Diagnosis (1) Influenza: Status: Acute Code(s): J11.1 - Influenza due to unidentified influenza virus with other respiratory manifestations (2) Acute exacerbation of COPD with asthma: Status: Acute Code(s): J44.1 - Chronic obstructive pulmonary disease with (acute) exacerbation Meds Home Medications and Allergies Home Medications ?Medication ?Instructions ?Recorded ?Confirmed ?Type budesonide 160 mcg-glycopyr 9 2 puff inhalation BIDRT 11/14/24 11/24/24 History mcg-formot 4.8 mcg/actuation HFA inhaler (Breztri Aerosphere) famotidine 20 mg tablet 40 mg PO BID 11/14/24 11/24/24 History levothyroxine 125 mcg tablet 125 mcg PO DAILYDM 11/14/24 11/24/24 History montelukast 10 mg tablet 10 mg PO PM 11/14/24 11/24/24 History ipratropium 0.5 mg-albuterol 3 mg 3 ml inhalation Q6HP PRN Shortness 11/16/24 11/24/24 Rx (2.5 mg base)/3 mL nebulization Of Breath 30 days #180 mL soln pantoprazole 40 mg tablet,delayed 40 mg PO DAILY 30 days #30 tabs 11/16/24 11/24/24 Rx release New Prescriptions to Start Prescriptions: ipratropium-albuterol Tony Zimmerman pantoprazole Tony Zimmerman Allergies Allergy/AdvReac Type Severity Reaction Status Date / Time Penicillins Allergy Anaphylaxis Verified 11/24/24 11:08 Discharge Plan Disposition Patient Disposition: Home, Self-Care Condition: Fair Follow up Plan Follow up with: [place] MD [Physician] - 11/19/24 (please call for a follow up appointment.) Prescriptions/Medication Reconciliation: New ipratropium-albuterol 0.5 mg-3 mg(2.5 mg base)/3 mL Solution For Nebulization 3 ml inhalation Q6HP PRN (Reason: Shortness Of Breath) 30 Days Qty: 180 3RF pantoprazole 40 mg Tablet,Delayed Release (Dr/Ec) 40 mg PO DAILY 30 Days Qty: 30 0RF Rx Instructions: Take on empty stomach. Continued montelukast 10 mg tablet 10 mg PO PM Patient Comments: TAKE 1 TABLET BY MOUTH IN THE EVENING Breztri Aerosphere 160-9-4.8 mcg/actuation HFA aerosol inhaler 2 puff INHALATION BIDRT levothyroxine 125 mcg tablet 125 mcg PO DAILYDM famotidine 20 mg tablet 40 mg PO BID Patient Comments: TAKE 2 TABLETS BY MOUTH TWICE DAILY Discontinued spironolactone 25 mg tablet 25 mg PO Q2D Patient Comments: TAKE 1 TABLET BY MOUTH EVERY OTHER DAY furosemide 40 mg tablet 40 mg PO Q2D Patient Comments: TAKE 1 TABLET BY MOUTH EVERY OTHER DAY Problem Reconciliation Problems Reviewed?: Yes Patient Discharge Instructions Patient Instructions: DI for Chronic Obstructive Pulmonary Disease, DI for Respiratory Failure Print Language: Upper Sorbian Providers Primary Care Provider: Tony Augustine Admit Provider: Tony Zimmerman Attending Provider: Tony Zimmerman
[2024-11-16 10:39] VITALS: PULSE 73; PULSE 83; O2SAT 91
--- NOTE | 2024-11-17 10:24 | SW/DCPLANNER ---
Spoke with patient on the phone. Patient stated that she is doing fairly well. Patient stated that she knew she had an upcoming appointment but not sure when. Patient stated that she was able to black pickler her new medicine from [facility]. Patient stated that she has no concern or questions at this time. Ilsa Quinones
== END 2024-11-16 11:40 | disposition home or self-care (01) ==
LOC: ER 12:23 → 2ND 12:35
PROVIDERS: Admitting Provider Student in an Organized Health Care Education/Training Program; Emergency Provider Student in an Organized Health Care Education/Training Program; PCP Internal Medicine; Visit Provider Student in an Organized Health Care Education/Training Program
DX: J44.1 Chronic obstructive pulmonary disease with (acute) exacerbation (principal); J96.01 Acute respiratory failure with hypoxia; J10.1 Influenza due to other identified influenza virus with other respiratory manifestations; J45.901 Unspecified asthma with (acute) exacerbation; K21.9 Gastro-esophageal reflux disease without esophagitis; E03.9 Hypothyroidism, unspecified; Z79.82 Long term (current) use of aspirin; Z79.899 Other long term (current) drug therapy; Z87.891 Personal history of nicotine dependence; Z77.22 Contact with and (suspected) exposure to environmental tobacco smoke (acute) (chronic); Z79.890 Hormone replacement therapy
CPT/HCPCS: 36415; 71045; 71275; 80053; 82803; 83735; 83880; 84484; 85025; 86803; 87389; 87633; 93005; 94640; 94761; 99291; G0378; J0456; J0696; J1650; J1885; J1940; J2919; J3475; J7050; J7620; Q9967

== ENCOUNTER 2024-11-24 16:31 | Outpatient (CLI) | payer MEDICARE, SELFPAY ==
--- NOTE | 2024-11-24 16:37 | XR_ITS ---
PROCEDURE INFORMATION: Exam: XR Chest Exam date and time: 11/24/2024 4:37 PM Age: 74 years old Clinical indication: Cough and shortness of breath; Additional info: SOB TECHNIQUE: Imaging protocol: Radiologic exam of the chest. Views: 2 views. COMPARISON: CT ANGIO CHEST PE PROTOCOL 11/15/2024 12:49 PM FINDINGS: Lungs: Unremarkable. No consolidation. Pleural spaces: Unremarkable. No pleural effusion. No pneumothorax. Heart/Mediastinum: Unremarkable. No cardiomegaly. Bones/joints: Unremarkable. IMPRESSION: No acute findings.
== END 2024-11-24 23:59 | disposition home or self-care (01) ==
LOC: LAB 16:32
PROVIDERS: PCP Internal Medicine; Visit Provider Internal Medicine Pulmonary Disease
DX: R06.02 Shortness of breath (principal)
CPT/HCPCS: 71046

== ENCOUNTER 2024-12-02 09:45 | Outpatient (CLI) | payer MEDICARE, SELFPAY ==
--- NOTE | 2024-12-02 10:15 | PC.NURSE ---
Pt unable to do Pre and Post due to coughing and getting over the flu. 6MWT was completed.
== END 2024-12-02 23:59 | disposition home or self-care (01) ==
LOC: RT 09:47
PROVIDERS: PCP Internal Medicine; Visit Provider Internal Medicine Pulmonary Disease
DX: R06.09 Other forms of dyspnea (principal)
CPT/HCPCS: 94618

== ENCOUNTER 2025-01-23 12:05 | Outpatient (CLI) | payer MEDICARE, SELFPAY ==
[2025-01-23 18:31] LABS: Hemoglobin A1C 5.3 % (4.0-6.0)
[2025-01-23 19:36] LABS: Thyroid Stimulating Hormone 0.43 uIU/mL (0.465-4.68)
== END 2025-01-23 23:59 | disposition home or self-care (01) ==
LOC: LAB.DROPOF 01-25 12:06
PROVIDERS: PCP Family Medicine; Visit Provider Family Medicine
DX: E03.9 Hypothyroidism, unspecified (principal); R73.09 Other abnormal glucose
CPT/HCPCS: 83036; 84443

== ENCOUNTER 2025-02-12 09:16 | Outpatient (CLI) | payer MEDICARE, SELFPAY ==
--- NOTE | 2025-02-12 09:30 | XR_ITS ---
FINAL REPORT TECHNIQUE: Bone densitometry calculations of the lumbar spine and bilateral hips were obtained. CLINICAL HISTORY: screening COMPARISON: None FINDINGS: Using L1-4, the bone mineral density of the spine is 1.118 g/cm2, corresponding to T-score of 0.6. Using the left hip, the bone mineral density of the femoral neck is 0.746 g/cm2, corresponding to a T-score of -0.9. Using the right hip, the bone mineral density of the femoral neck is 0.673 g/cm?, corresponding to a T-score of -1.6. Note is made of several sclerotic appearing areas noted on the images of the hips, which may represent artifact. However, would suggest plain film correlation of the hips for further evaluation. NOTE: T-score: Standard deviation compared with peak bone mass of young adult mean. *Following the recommendations of the International Society of Bone densitometry, classification of hip BMD is based on the lower of two T-scores; total hip or femoral neck. IMPRESSION: Diminished bone mineral density of the right hip consistent with osteopenia. Normal bone mineral density of the left hip and lumbar spine. Several sclerotic appearing areas noted on images of the hips, which may represent artifact. However, suggest plain film correlation for further evaluation. Reviewed, Interpreted and Dictated by Joaquim Peres MD Transcribed by Amelia Stein Authenticated and [facility]
== END 2025-02-12 23:59 | disposition home or self-care (01) ==
LOC: RAD 09:16
PROVIDERS: PCP Family Medicine; Visit Provider Family Medicine
DX: M81.0 Age-related osteoporosis without current pathological fracture (principal)
CPT/HCPCS: 77080

== ENCOUNTER 2025-02-18 06:22 | Outpatient (CLI) | payer MEDICARE, SELFPAY ==
--- NOTE | 2025-02-18 | CA_ITS ---
APPROVED REPORT Exam: Pharmacologic Technologist: Ronel Chawla Ht: 5 ft 4 in Wt: 233 lbs BSA: 2.09 m2 HR: 60 bpm BP: 139/48 mmHg Stress Test Details Test: Lexiscan HR Resting HR: 60 bpm Max Heart Rate (APMHR): 148.125583 bpm Max HR Achieved: 81 bpm Target HR (85% APMHR): 125.867686 bpm % of APMHR: 54.73 Recovery HR: 77 bpm BP Resting BP: 139.0/48.0 mmHg Max BP: 142.0/61.0 mmHg Recovery BP: 142.0/61.0 mmHg ECG Stress ECG Conclusion Symptoms: Shortness of air with Lexiscan and dizziness. Arrhythmias/Ectopy: PACs noted before test, with Lexiscan infusion, and in recovery. ST-T Changes: Unremarkable with Lexiscan Electronically signed by : Petra Blas MD 02/18/2025 13:03:24
--- NOTE | 2025-02-18 06:30 | NM_ITS ---
APPROVED REPORT Exam: Nuclear Stress Test Indication: tob use, fm hx, c.p., sob Patient Location: Outpatient Stress Tech: Ronel Chawla [place] Tech:Radhika Chavez MEGHAN RT (R)(N)(M) Ht: 5 ft 4 in Wt: 230 lbs Bra Size: 46d HR: 62 bpm BP: 139/48 mmHg BSA: 2.08 m2 TID: 1.44 BMI: 39.4 History: tob use, fm hx, c.p., sob Procedure: Patient received 0.4 mg of intravenous Lexiscan, resting heart rate 62 bpm, resting blood pressure 139/48 mmHg, with Lexiscan maximum heart rate achieved was 82 bpm which is % of the maximum predicted heart rate and blood pressure was 118/45 mmHg. Cardiac Stress and Resting SPECT Images: Cardiac Stress and Resting SPECT images were obtained using technetium 99m Myoview 31.7 mCi stress and 10.69 mCi at rest. The patient is unable to lie on her abdomen. Therefore, obtain stress imaging cannot be performed. This may affect the diagnostic interpretation of the study findings. Resting and stress imaging in supine positions demonstrate no evidence of fixed or reversible perfusion defects. There is increase in transient ischemic dilatation ratio (TID 1.44), suggestive of possible multivessel disease or balanced ischemia. Gated imaging demonstrates normal global and regional LV systolic function. LVEF is calculated at 62%. Conclusion: No evidence of fixed or reversible perfusion defects. There is increase in transient ischemic dilatation ratio (TID 1.44), suggestive of possible multivessel disease or balanced ischemia. Gated imaging demonstrates normal global and regional LV systolic function. LVEF is calculated at 62%. Electronically signed by : Petra Blas MD 02/18/2025 13:00:00
[2025-02-18] MEDS: SODIUM CHLORIDE 0.9% 10ML SYR (RAD ONLY) 10 ML IV ×2 (06:35→08:30)
--- NOTE | 2025-02-18 08:18 | XR_ITS ---
FINAL REPORT CLINICAL HISTORY: Abnormal DEXA scan COMPARISON: None FINDINGS: AP and frog leg views of the left hip were obtained. There is no acute fracture or dislocation. Mild osteopenia is noted. Joint space is preserved. There is no acute soft tissue abnormality. IMPRESSION: Mild osteopenia without acute osseous abnormality of the left hip. Reviewed, Interpreted and Dictated by Clarisa Go MD Transcribed by Cleopatra Clay Authenticated and [facility]
--- NOTE | 2025-02-18 08:18 | XR_ITS ---
FINAL REPORT CLINICAL HISTORY: Abnormal DEXA scan COMPARISON: None FINDINGS: An AP view of the pelvis and AP and frog leg views of the right hip were obtained. There is no acute fracture or dislocation. Mild osteopenia is noted. There is mild degenerative joint disease. The remaining osseous pelvis is without acute abnormality. There is no acute soft tissue abnormality. IMPRESSION: Degenerative joint disease without acute osseous abnormality of the right hip. Reviewed, Interpreted and Dictated by Clarisa Go MD Transcribed by Cleopatra Clay Authenticated and [facility]
[2025-02-18] MEDS: REGADENOSON 0.4MG/5ML SYRINGE 0.4 MG IV (08:30)
[2025-02-18] MEDS: ISOTOPE MYOVIEW (PER STUDY) 1 DOSE IV (08:46)
== END 2025-02-18 23:59 | disposition home or self-care (01) ==
LOC: RAD 06:24
PROVIDERS: PCP Family Medicine; Visit Provider Family Medicine
DX: R06.09 Other forms of dyspnea (principal); R07.9 Chest pain, unspecified; M85.80 Other specified disorders of bone density and structure, unspecified site
CPT/HCPCS: 73502; 78452; 93017; 93018; A9502; J2785

== ENCOUNTER 2025-02-27 08:21 | Day surgery (SDC) | payer MEDICARE, SELFPAY ==
[2025-02-27] VITALS (12 sets, daily range): BP systolic 120–137; BP diastolic 57–70; PULSE 53–63; RESP 15–26; TEMP 36.6–36.9; O2SAT 92–100; BMI 39.4
--- NOTE | 2025-02-27 07:03 | IR_ITS ---
APPROVED REPORT Patient Location: Outpatient PROCEDURES Left heart catheterization Left ventriculogram Selective coronary angiogram INDICATION Abnormal Myoview Informed consent was obtained prior to the procedure. COMPLICATIONS NONE Estimated Blood Loss: LESS THAN 10 ML TECHNIQUE One percent lidocaine used to anesthetize the right anterior aspect of the wrist. The right radial artery was accessed via the Seldinger technique. A 6 Serbian sheath was placed in the right radial artery. 2.5 mg of Verapamil, 800 mcg of nitroglycerin, 1mg Lidocaine and 5000 U Heparin were given through the arterial sheath. The JL3 catheter was also used to perform left heart catheterization, left ventriculogram and selective coronary angiogram. At the end of the procedure the sheath was removed good hemostasis was achieved using Traclet band, patient was transferred to the postop holding area in stable condition. 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 Risk factor modification 2. Medical management Electronically signed by : Bud Sheppard MD 02/27/2025 13:22:29
[2025-02-27 08:54] LABS: Basophils # 0.1 K/mm3 (0-0.2); Basophils % 1.1 % (0.1-2.0); Eosinophils # 0.1 Kmm3 (0.0-0.4); Eosinophils % 1.5 % (0.1-12.0); Hematocrit 46.3 % (37.0-47.0); Hemoglobin 15.2 g/dL (12.2-16.2); Immature Granulocytes # 0.02 10^3uL; Immature Granulocytes % 0.2 %; Lymphocytes # 3.4 K/mm3 (0.7-4.5); Lymphocytes % 40.9 % (10-50); Mean Corpuscular HGB Conc 32.8 g/dL (31.8-35.4); Mean Corpuscular Hemoglobin 30.4 pg (27.0-31.2); Mean Corpuscular Volume 92.6 fl (81-99); Mean Platelet Volume 10.8 fl (7.4-10.4); Monocytes # 0.5 K/mm3 (0.1-1.0); Monocytes % 5.7 % (1.7-9.3); Neutrophils # 4.3 K/mm3 (1.8-7.8); Neutrophils % 50.6 % (37.0-80.0); Nucleated Red Blood Cells # 0 10^3/uL; Nucleated Red Blood Cells % 0 %; Platelet Count 269 K/mm3 (142-424); Red Cell Distribution Width 13.4 % (11.5-17.5); Red Cell Distribution Width-SD 45.5 fL; White Blood Count 8.4 K/mm3 (4.8-10.8)
[2025-02-27 08:57] LABS: Chloride 109 mmol/L (98-107); Potassium 4.3 mmoL/L (3.5-5.1); Sodium 139 mmol/L (136-145)
[2025-02-27 09:00] LABS: Anion Gap 9.3 mEq/L (5-15); Blood Urea Nitrogen 18 mg/dl (7-17); Carbon Dioxide 25 mmol/L (22.0-30.0); Creatinine Clearance Estimated 83 mL/min (50-200); Estimated Glomerular Filt Rate 82 ml/min (>60); GFR (African American) 99 ML/MIN (>60)
[2025-02-27 09:01] LABS: Calcium 9.4 mg/dl (8.4-10.2); Glucose 111 mg/dl (74-100)
[2025-02-27] MEDS: HEPARIN 1,000 UNITS/500ML NS (CATH LAB) 3000 UNIT IV (10:48)
[2025-02-27] MEDS: LIDOCAINE 1% 10ML MDV 10 ML IJ (10:48)
[2025-02-27] MEDS: VERAPAMIL 2.5MG/ML 2ML VIAL 2.5 MG IV (10:48)
[2025-02-27] MEDS: HEPARIN 1,000 UNITS/ML 10ML VIAL (CATH LAB) 5000 UNIT IV (10:48)
[2025-02-27] MEDS: 0.9 % SODIUM CHLORIDE 500 ML 25 ML IV (10:48)
[2025-02-27] MEDS: MIDAZOLAM HCL 1MG/ML 5ML VIAL 1 MG IV (10:49)
[2025-02-27] MEDS: NITROGLYCERIN 800MCG/8ML SYR (CATH LAB) 800 MCG IA (10:49)
[2025-02-27] MEDS: diphenhydrAMINE 50MG/ML VIAL 50 MG IV (10:49)
[2025-02-27] MEDS: FENTANYL 100MCG/2ML VIAL 50 MCG IV (10:49)
[2025-02-27] MEDS: IOPAMIDOL-370 (76%);100ML BOTTLE 70 ML IV (11:35)
== END 2025-02-27 14:03 | disposition home or self-care (01) ==
PROVIDERS: PCP Family Medicine; Visit Provider Internal Medicine
PROC: 4A023N7 Measurement of Cardiac Sampling and Pressure, Left Heart, Percutaneous Approach (ICD-10-PCS; CPT 93452; principal; 2025-02-27 08:45)
DX: R93.1 Abnormal findings on diagnostic imaging of heart and coronary circulation (principal); R06.09 Other forms of dyspnea; R07.89 Other chest pain; Z87.891 Personal history of nicotine dependence; Z88.0 Allergy status to penicillin; Z79.51 Long term (current) use of inhaled steroids; Z79.899 Other long term (current) drug therapy; J44.9 Chronic obstructive pulmonary disease, unspecified; I50.9 Heart failure, unspecified; E66.811 Obesity, class 1; Z68.39 Body mass index [BMI] 39.0-39.9, adult
CPT/HCPCS: 80048; 85025; 93454; 99152; C1725; C1769; J1200; J1644; J3010; Q9967

== ENCOUNTER 2025-03-03 12:52 | Outpatient (CLI) | payer MEDICARE, SELFPAY ==
--- NOTE | 2025-03-03 12:55 | CA_ITS ---
APPROVED REPORT EXAM: Comprehensive 2D, Doppler, and color-flow Echocardiogram Beverage Specialist: Sofya Zhou RDCS Ht: 5 ft 4 in Wt: 229lbs BSA: 2.07 BP: 154/74 mmHg Indications: CP,COPD,SOA,EDEMA,BEDOYA TDS LIMITED BY BODY HABITUS M-Mode Dimensions RVDd 2.54 cm (0.9-2.6) LA Diam 4.04 cm (1.9-4.0) LVDd 5.81 cm (3.5-5.7) LVDs 4.48 cm (3.5-5.7) IVSd 0.77 cm (0.6-1.1) PWd 0.65 cm (0.6-1.1) EF (Teich) 45.30% FS 22.90% EDV (Teich) 167.20 mL ESV (Teich) 91.50 mL LV Diastology E Decel Time 243 (160-240 msec) E/A Ratio 0.9 Mitral Valve MV E Max Shantanu. 61.0 (40-130 cm/s) MV A Velocity 71.0 (40-130 cm/s) E/A Ratio 0.86 MV PHT 71.0 ms Left Ventricle The left ventricle is normal size. The left ventricular systolic function is normal. The left ventricular ejection fraction is within the normal range. There is increased LV wall thickness. There is normal LV segmental wall motion. The left ventricular diastolic function is normal. LVEF is 60%. Right Ventricle The right ventricle is normal size. The right ventricular systolic function is normal. Atria The left atrium size is normal. The right atrium size is normal. There is no Doppler evidence of interatrial shunt. Aortic Valve Aortic valve is mildly thickened. There is no aortic valvular stenosis. Trace aortic regurgitation. Mitral Valve The mitral valve is normal in structure. No evidence of mitral valve stenosis. Trace mitral regurgitation. Tricuspid Valve Tricuspid valve is grossly normal in structure and function. Trace tricuspid regurgitation. There is insufficient TR jet to estimate RVSP. Pulmonic Valve The pulmonary valve is normal in structure. Trace pulmonic regurgitation. Great Vessels The aortic root is normal in size. IVC is normal in size and collapses >50% with inspiration. Pericardium Trivial, anterior pericardial effusion is present. No echo indications of tamponade. Other Information Study Quality: Fair Conclusion Normal biventricular systolic function. No significant valvular stenosis or regurgitation. Trivial, anterior pericardial effusion is present. No echo indications of tamponade. Compared to prior study from 08/12/2024, there are no significant changes. The location and size of the pericardial effusion are unchanged. Electronically signed by : Petra Blas MD 03/04/2025 00:14:11
== END 2025-03-03 23:59 | disposition home or self-care (01) ==
LOC: RT 12:53
PROVIDERS: PCP Family Medicine; Visit Provider Internal Medicine
DX: R07.89 Other chest pain (principal); J44.9 Chronic obstructive pulmonary disease, unspecified; R60.9 Edema, unspecified; R94.39 Abnormal result of other cardiovascular function study; R06.09 Other forms of dyspnea
CPT/HCPCS: 93306

== ENCOUNTER 2025-03-16 15:00 | Outpatient (CLI) | payer MEDICARE, SELFPAY ==
--- NOTE | 2025-03-16 15:15 | MM_ITS ---
PROCEDURE INFORMATION: Exam: MG Bilateral Screening 3D Mammography Exam date and time: 03/16/2025 3:16 PM Age: 75 years old Clinical indication: Screening examination TECHNIQUE: Imaging protocol: Bilateral Screening tomosynthesis and 2D mammography including computer-aided detection (CAD) when performed. COMPARISON: 1. MG MM DIG SCREENING MAMM BI W/CAD 03/01/2021 10:00 AM 2. MG SCBI MM Dig screening mamm BI w/CAD 06/03/2018 10:32 AM FINDINGS: MAMMOGRAPHY: Breast composition: There are scattered areas of fibroglandular density. Mass: None. Architectural distortion: None. Calcifications: No suspicious calcifications. Asymmetric density: None. Skin thickening: None. Axillary adenopathy: None. IMPRESSION: No mammographic evidence of malignancy. Annual screening is recommended unless otherwise clinically indicated. ASSESSMENT: BI-RADS 1, Negative.
== END 2025-03-16 23:59 | disposition home or self-care (01) ==
LOC: RAD 15:01
PROVIDERS: PCP Family Medicine; Visit Provider Family Medicine
DX: Z12.31 Encounter for screening mammogram for malignant neoplasm of breast (principal); R92.323 Mammographic fibroglandular density, bilateral breasts
CPT/HCPCS: 77063; 77067

== ENCOUNTER 2025-03-25 14:53 | Outpatient (CLI) | payer MEDICARE, SELFPAY ==
--- OUTSIDE RECORDS SUMMARY | 2025-03-25 14:56 | XMS_ITS | Clinical Summary ---
Author Organization Healthcare Address [address] [place] [address] Care Team Providers Care Public Relations Manager Name Role Phone Unavailable Primary Care Provider Unavailabl e Social History Tobacco Use Types Packs/Day Years Used Date Smoking Tobacco: Never Assessed Comments Unknown Sex and Gender Information Value Date Recorded Sex Assigned at Not on file Legal Sex Female 6:55 PM EDT Gender Identity Not on file Sexual Orientation Not on file Last Filed Vital Signs Vital Sign Reading Time Taken Comments Blood Pressure 133/62 03/13/2023 8:04 AM EDT Pulse 62 03/13/2023 8:04 AM EDT Temperature - - Respiratory Rate - - Oxygen Saturation - - Inhaled Oxygen Concentration - - Weight 100 kg (221 lb) 03/13/2023 8:04 AM EDT Height 162.6 cm (5' 4 ) 03/13/2023 8:04 AM EDT Body Mass Index 37.93 03/13/2023 8:04 AM EDT Plan of Treatment Health Maintenance Due Date Last Done Comments [facility]-Bone Density Scan 1950 [facility]-Depression Screening 1950 [facility]-/Child/Adol SDOH Screenings 1950 [facility]- SDOH Screenings 02/26/1970 [facility]-Adult SDOH Screenings 02/26/1970 [facility]-DTaP,Tdap,and Td Vaccine s (1 - Tdap) 12/20/1996 12/19/1996 CT Colonography 02/26/1997 Colonoscopy 02/26/1997 FIT-DNA 02/26/1997 FIT 02/26/1997 FOBT 02/26/1997 Sigmoidoscopy 02/26/1997 [facility]-Colorectal Cancer Screening 02/26/1997 [facility]-Zoster Vaccines (1 of 2) 02/26/2002 [facility]-Pneumococcal Vaccine: 50 + Years (3 of 3 - PCV20 or PCV21) 07/25/2023 07/25/2018, 07/29/2016 [id number] Vaccine ( season) 2024 01/26/2021, 12/29/2020 [facility]-Influenza Vaccine (Seaso n Ended) 2025 07/02/2021, 06/29/2020, 07/29/2016 [facility]-RSV Vaccine: 60+ Years o r (1 - 1-dose 75+ series) 02/26/2027 [facility]-Hepatitis A Vaccines Aged Out 05/21/2019 No longer eligible based on patient's age to complete this topic HPV Vaccines Aged Out No longer eligi ble based on patient's age to complete this topic [facility]-HIB Vaccines Aged Out No longer e ligible based on patient's age to complete this topic [facility]-IPV Vaccines Aged Out No longer e ligible based on patient's age to complete this topic [facility]-Rotavirus Vaccines Aged Out No lo nger eligible based on patient's age to complete this topic Insurance [employer]
[2025-03-25 16:42] LABS: Basophils # 0.1 K/mm3 (0-0.2); Basophils % 0.9 % (0.1-2.0); Eosinophils # 0.2 Kmm3 (0.0-0.4); Eosinophils % 1.8 % (0.1-12.0); Hematocrit 48.6 % (37.0-47.0); Hemoglobin 15.6 g/dL (12.2-16.2); Immature Granulocytes # 0.04 10^3uL; Immature Granulocytes % 0.4 %; Lymphocytes # 3.4 K/mm3 (0.7-4.5); Lymphocytes % 32.8 % (10-50); Mean Corpuscular HGB Conc 32.1 g/dL (31.8-35.4); Mean Corpuscular Hemoglobin 29.4 pg (27.0-31.2); Mean Corpuscular Volume 91.7 fl (81-99); Mean Platelet Volume 11.4 fl (7.4-10.4); Monocytes # 0.7 K/mm3 (0.1-1.0); Monocytes % 6.5 % (1.7-9.3); Neutrophils % 57.6 % (37.0-80.0); Nucleated Red Blood Cells # 0 10^3/uL; Nucleated Red Blood Cells % 0 %; Platelet Count 246 K/mm3 (142-424); Red Cell Distribution Width 13.2 % (11.5-17.5); Red Cell Distribution Width-SD 44.1 fL; White Blood Count 10.4 K/mm3 (4.8-10.8)
[2025-03-25 17:02] LABS: Alanine Aminotransferase 29 U/L (12-78); Albumin Level 4.3 g/dl (3.5-5.0); Alkaline Phosphatase 92 U/L (38-126); Anion Gap 9.5 mEq/L (5-15); Aspartate Amino Transferase 34 U/L (14-36); Bilirubin,Direct 0.2 mg/dl (0.0-0.4); Bilirubin,Indirect 0.7 mg/dL (0.0-0.9); Bilirubin,Total 0.9 mg/dl (0.2-1.3); Bilirubin,Unconjugated 0.7 mg/dL (0.0-1.1); Blood Urea Nitrogen 17 mg/dl (7-17); Calcium 9.7 mg/dl (8.4-10.2); Carbon Dioxide 29 mmol/L (22.0-30.0); Chloride 105 mmol/L (98-107); Chol/HDL Ratio 4.4 (1-3.5); Cholesterol 194 mg/dl (140-200); Estimated Glomerular Filt Rate 82 ml/min (>60); GFR (African American) 99 ML/MIN (>60); Glucose 90 mg/dl (74-100); HDL Cholesterol 44 mg/dl (40-60); Magnesium 1.8 mg/dl (1.6-2.3); Potassium 4.5 mmoL/L (3.5-5.1); Sodium 139 mmol/L (136-145); Total Protein,Serum 6.5 g/dl (6.3-8.2); Triglycerides 138 mg/dl (30-150); VLDL Cholesterol 28 mg/dL (0-40)
[2025-03-25 17:10] LABS: NT Pro Brain Natriuretic Pep. 76.7 pg/mL (0-125)
[2025-03-25 17:19] LABS: Free T4 (Free Thyroxine) 2.19 ng/dl (0.78-2.19)
[2025-03-25 17:32] LABS: Thyroid Stimulating Hormone 0.27 uIU/mL (0.465-4.68)
== END 2025-03-25 23:59 | disposition home or self-care (01) ==
LOC: LAB 14:54
PROVIDERS: PCP Family Medicine; Visit Provider Internal Medicine
DX: R06.02 Shortness of breath (principal); R07.89 Other chest pain; I25.10 Atherosclerotic heart disease of native coronary artery without angina pectoris; I50.9 Heart failure, unspecified; R93.1 Abnormal findings on diagnostic imaging of heart and coronary circulation; R06.09 Other forms of dyspnea
CPT/HCPCS: 36415; 80048; 80061; 80076; 83735; 83880; 84439; 84443; 85025; 93225; 93227

== ENCOUNTER 2025-03-27 15:31 | Outpatient (CLI) | payer MEDICARE, SELFPAY ==
--- OUTSIDE RECORDS SUMMARY | 2025-03-27 15:33 | XMS_ITS | Clinical Summary ---
Author Organization Healthcare Address [address] [place] [address] Care Team Providers Care Director Of Purchasing Name Role Phone Unavailable Primary Care Provider [...] - PCV20 or PCV21) 07/25/2023 07/25/2018, 07/29/2016 [id number] Vaccine ( season) 2024 01/26/2021, 12/29/2020 [facility]-Influenza [...]
== END 2025-03-27 23:59 | disposition home or self-care (01) ==
LOC: RT 15:31
PROVIDERS: PCP Family Medicine; Visit Provider Internal Medicine
DX: I49.1 Atrial premature depolarization (principal); I47.19 Other supraventricular tachycardia; I49.3 Ventricular premature depolarization; I25.10 Atherosclerotic heart disease of native coronary artery without angina pectoris; R93.1 Abnormal findings on diagnostic imaging of heart and coronary circulation
CPT/HCPCS: 93270

== ENCOUNTER 2025-06-19 13:47 | Outpatient (CLI) | payer MEDICARE, SELFPAY ==
--- OUTSIDE RECORDS SUMMARY | 2025-06-19 13:50 | XMS_ITS | Clinical Summary ---
Author Organization Healthcare Address [address] [place] [address] Care Team Providers Care Dental Technician Metal Name Role Phone Unavailable Primary Care Provider [...] - PCV20 or PCV21) 07/25/2023 07/25/2018, 07/29/2016 [id number] Vaccine ( season) 2024 01/26/2021, 12/29/2020 [facility]-Influenza Vaccine (#1) 06/15/202507/02, 06/29/2020, 07/29/2016 [facility]-RSV Vaccine: 60+ Years o [...] patient's age to complete this topic Insurance [employer]
== END 2025-06-19 23:59 | disposition home or self-care (01) ==
LOC: LAB 13:48
PROVIDERS: PCP Family Medicine; Visit Provider Family Medicine Addiction Medicine
DX: H47.012 Ischemic optic neuropathy, left eye (principal)
CPT/HCPCS: 36415; 85651

== ENCOUNTER 2025-07-13 10:51 | Outpatient (CLI) | payer MEDICARE, SELFPAY ==
--- NOTE | 2025-07-13 10:55 | CA_ITS ---
FINAL REPORT TECHNIQUE: Damon scale, color and spectral doppler images of the bilateral carotid arteries were obtained. CLINICAL HISTORY: HTN, HLD, ex smoker. 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 COMPARISON: None FINDINGS: Peak systolic velocity in the right internal carotid artery is 98.4 cm/sec. The internal carotid to common carotid artery ratio is 1.24. There is no significant carotid artery stenosis and minimal plaque formation. The right vertebral artery is normal in direction. Peak systolic velocity in the left internal carotid artery is 72 cm/sec. The internal carotid to common carotid artery ratio is 0.9. There is no significant carotid artery stenosis and minimal plaque formation. The left vertebral artery is normal in direction. IMPRESSION: No ultrasound evidence of hemodynamically significant carotid artery stenosis. Normal peak systolic velocities and normal internal to common carotid artery ratios bilaterally. Reviewed, Interpreted and Dictated by Joaquim Peres MD Transcribed by Amelia Stein Authenticated and [facility]
--- OUTSIDE RECORDS SUMMARY | 2025-07-13 10:56 | XMS_ITS | Patient Health Record ---
Author Organization [facility] Address [address] [place] [id number] Care Team Providers Care Python Java Developer Name Role Phone Andria Zamora Primary Care Provider [phone] Reason For Referral No Information Medications Medication SIG (Take, Route, Frequency, Duration) Notes Start Date End Date Status Premarin 1.25 MG 1 tab(s) orally once a day Active Levothyroxine Sodium 100 MCG 1 tab(s) or ally once a day Active Problems Problem Type SNOMED Code ICD Code Onset Dates Problem Status W/U Status Risk Notes Problem Essential hypertension (30444098) HTN [Hypertens ion] (401.9) Active confirmed Plan Of Treatment No Information Insurance Providers Payer Name Payer Address Payer Phone Subscriber Number Group Number Insured Name Patient Relationship to Insured Coverage Start Date Coverage End Date [facility] [id number] [place] [address] [id number] Rhae Pugh Self - patient is the insured Medical (General) History Medical History History ICD Code Hypothyroid Surgical menopause Colon polyps Surgical History Surgery Date(Month/Year) total hysterectomy for fibroids cyst in groin area left knee surgery for torn meniscus 1975 Coloncoscopy Hospitalization History Reason Date(Month/Year) see above
--- OUTSIDE RECORDS SUMMARY | 2025-07-13 10:56 | XMS_ITS | Clinical Summary ---
Author Organization Healthcare Address [address] [place] [address] Care Team Providers Care General Production Worker Name Role Phone Unavailable Primary Care Provider [...] - PCV20 or PCV21) 07/25/2023 07/25/2018, 07/29/2016 [id number] Vaccine ( season) 2025 01/26/2021, 12/29/2020 UKY-Influenza Vaccine (#1) 06/15/202507/02, 06/29/2020, [...]
== END 2025-07-13 23:59 | disposition home or self-care (01) ==
LOC: RT 10:51
PROVIDERS: PCP Family Medicine; Visit Provider Family Medicine Addiction Medicine
DX: H34.12 Central retinal artery occlusion, left eye (principal); I10 Essential (primary) hypertension; E78.5 Hyperlipidemia, unspecified; Z87.891 Personal history of nicotine dependence
CPT/HCPCS: 93880

== ENCOUNTER → 2025-07-16 09:47 | Outpatient (RCR) | payer MEDICARE, SELFPAY | LOC: PULREHAB 09:47 | PROVIDERS: Visit Provider Internal Medicine Pulmonary Disease | DX: J44.9 Chronic obstructive pulmonary disease, unspecified (principal) | CPT/HCPCS: 94626 ==

== ENCOUNTER 2025-08-12 15:38 | Outpatient (CLI) | payer MEDICARE, SELFPAY ==
--- NOTE | 2025-08-12 15:46 | XR_ITS ---
FINAL REPORT TECHNIQUE: Chest PA & Lateral CLINICAL HISTORY: bronchitis COMPARISON: 11/24/2024 FINDINGS: 2 views of the chest were performed. Mild cardiomegaly is present. The mediastinum is within normal limits. There is no acute cardiopulmonary process. There are mild chronic changes at the lung bases. There are no pleural effusions. There is no pneumothorax. The bony thorax appears intact. IMPRESSION: Mild cardiomegaly and chronic changes at the lung bases. No acute cardiopulmonary process. Reviewed, Interpreted and Dictated by Joaquim Peres MD Transcribed by Amelia Stein Authenticated and . [facility]
--- OUTSIDE RECORDS SUMMARY | 2025-08-12 15:51 | XMS_ITS | Clinical Summary ---
Author Organization Healthcare Address [address] [place] [address] Care Team Providers Care Health Care Consultant Name Role Phone Unavailable Primary Care Provider [...] - PCV20 or PCV21) 07/25/2023 07/25/2018, 07/29/2016 [id number] Vaccine ( season) 2025 01/26/2021, 12/29/2020 UKY-Influenza [...]
[2025-08-12 16:42] LABS: Blood Urea Nitrogen 22 mg/dl (7-17); Creatinine,Serum 0.80 mg/dl (0.52-1.04); Estimated Glomerular Filt Rate 70 ml/min (>60); GFR (African American) 85 ML/MIN (>60)
== END 2025-08-12 23:59 | disposition home or self-care (01) ==
PROVIDERS: PCP Family Medicine; Visit Provider Internal Medicine
DX: I51.7 Cardiomegaly (principal); J40 Bronchitis, not specified as acute or chronic; R91.8 Other nonspecific abnormal finding of lung field
CPT/HCPCS: 36415; 71046; 82565; 84520

== ENCOUNTER 2025-08-13 07:43 | Outpatient (CLI) | payer MEDICARE, SELFPAY ==
--- OUTSIDE RECORDS SUMMARY | 2025-08-13 07:45 | XMS_ITS | Clinical Summary ---
Author Organization Healthcare Address [address] [place] [address] Care Team Providers Care Safety Council Director Name Role Phone Unavailable Primary Care Provider [...] - PCV20 or PCV21) 07/25/2023 07/25/2018, 07/29/2016 [id number] Vaccine ( season) 2025 01/26/2021, 12/29/2020 UKY-Influenza [...]
--- OUTSIDE RECORDS SUMMARY | 2025-08-13 07:45 | XMS_ITS | Patient Health Record ---
Author Organization [facility] Address [address] [place] [id number] Care Team Providers Care Dip Brazier Name Role Phone Andria Zamora Primary Care Provider Reason For Referral No Information Medications Medication SIG (Take, Route, Frequency, Duration) Notes Start Date End Date Status Premarin 1.25 MG 1 tab(s) orally once a day Active Levothyroxine Sodium 100 MCG 1 tab(s) or ally once a day Active Problems Problem Type SNOMED Code ICD Code Onset Dates Problem Status W/U Status Risk Notes Problem Essential hypertension (25865827) HTN [Hypertens ion] (401.9) Active confirmed Plan Of Treatment No Information Insurance Providers Payer Name Payer Address Payer Phone Subscriber Number Group Number Insured Name Patient Relationship to Insured Coverage Start Date Coverage End Date [facility] [id number] [place] [address] [id number] Rhea Pugh Self - patient is the insured Medical (General) History Medical History History ICD Code Hypothyroid Surgical menopause Colon polyps Surgical History Surgery Date(Month/Year) total hysterectomy for fibroids cyst in groin area left knee surgery for torn meniscus 1975 Coloncoscopy Hospitalization History Reason Date(Month/Year) see above
--- NOTE | 2025-08-13 08:00 | MR_ITS ---
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 The raw data images were also reviewed. The aortic arch is patent. The right common carotid artery is patent. The right internal carotid artery is patent. The right external carotid artery is patent. The right vertebral artery is patent. The left common carotid artery is patent. The left internal carotid artery is patent. The left external carotid artery is patent. The left vertebral artery is patent. IMPRESSION: No evidence of significant stenosis in any of the cervical vessels. Reviewed, Interpreted and Dictated by Joaquim Peres MD Transcribed by Amelia Stein Authenticated and . [facility]
--- NOTE | 2025-08-13 08:45 | MR_ITS ---
FINAL REPORT TECHNIQUE: MRA/MRV of the intracranial vessels performed pre and postcontrast enhancement. CLINICAL HISTORY: hx of stroke, effecting vision in left eye COMPARISON: None FINDINGS: MRA/MRV INTRACRANIAL VESSELS: MR angiography performed of the intracranial vessels reveals normal flow in the mid and distal cervical and vertebral arteries. The basilar artery, anterior and middle cerebral branches are unremarkable. No evidence of major vessel occlusion is identified. No focal aneurysm is seen. There is poor visualization of the superior sagittal sinus on the MRV portion of the examination, that likely is secondary to timing of the contrast bolus. IMPRESSION: Intracranial arterial vessels are normal in appearance. No major vessel occlusion is identified. Poor visualization of the superior sagittal sinus and the MRV examination, likely secondary to poor timing of the contrast bolus. Reviewed, Interpreted and Dictated by Joaquim Peres MD Transcribed by Amelia Stein Authenticated and [facility]
[2025-08-13] MEDS: SODIUM CHLORIDE 0.9% 10ML SYR (RAD ONLY) 10 ML IV (09:02)
[2025-08-13] MEDS: 0.9 % SODIUM CHLORIDE 50 ML VIAL 10 ML IV (09:02)
[2025-08-13] MEDS: GADOTERIDOL INJ 20ML SYRINGE 19 ML IV (09:02)
--- NOTE | 2025-08-13 09:30 | CA_ITS ---
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, Smoker, Edema, SOB Echo Enhancing Agent Indication: Rule out thrombus Agent(s) / Amount(s) Used: Definity 2 cc Comments: Patient coughed uncontrollably throughout exam 2D Dimensions IVSd 1.09 cm LVEF (Visual) 55.00 % PWd 0.96 cm LA Volume 50.40 mL LVDd 4.31 cm LA Volume Index 24.80 mL/m2 (M/F) 16-34 LVDs 3.09 cm EF AP4 58.70 % GL Strain -21.9 % M-Mode Dimensions LVDd 4.31 cm (3.5-5.7) LVDs 3.09 cm (3.5-5.7) IVSd 1.09 cm (0.6-1.1) PWd 0.96 cm (0.6-1.1) EPSs 0.46 cm FS 28.30% Other Information Study Quality: Technically Difficult Conclusion This is a limited TTE to evaluate for LV systolic function and rule out LV thrombus in the setting of prior stroke. Limited windows are obtained. Ultrasound enhancing agent is administered. The left ventricle is normal in size. There is increased LV wall thickness. There is normal global LV systolic function. No regional wall motion abnormalities are noted. LVEF is 55%. Ultrasound enhancing agent administration demonstrates no evidence of LV thrombus. Trivial anterior pericardial effusion is present (unchanged/slightly improved from prior TTE from 03/03/2025). Electronically signed by : Petra Blas MD 08/16/2025 01:09:09
[2025-08-13] MEDS: DEFINITY US ECHO CONTRAST 2ML INJ 2 MG IV (09:59)
--- NOTE | 2025-08-13 10:15 | CA_ITS ---
FINAL REPORT TECHNIQUE: extremity venous duplex was performed with augmentation and compression. CLINICAL HISTORY: HFrEF, COPD, Left leg edema, Obesity COMPARISON: None FINDINGS: Proper flow is seen throughout the left lower extremity deep venous system. There is no evidence of deep venous thrombosis. IMPRESSION: no deep venous thrombosis in the left lower extremity. Reviewed, Interpreted and Dictated by Joaquim Peres MD Transcribed by Amelia Stein Authenticated and [facility]
== END 2025-08-13 23:59 | disposition home or self-care (01) ==
LOC: RAD 07:43
PROVIDERS: PCP Family Medicine; Visit Provider Internal Medicine
DX: I50.40 Unspecified combined systolic (congestive) and diastolic (congestive) heart failure (principal); H47.019 Ischemic optic neuropathy, unspecified eye; I25.10 Atherosclerotic heart disease of native coronary artery without angina pectoris; M79.605 Pain in left leg; I63.9 Cerebral infarction, unspecified; J44.9 Chronic obstructive pulmonary disease, unspecified; E66.9 Obesity, unspecified; F17.200 Nicotine dependence, unspecified, uncomplicated
CPT/HCPCS: 70546; 70549; 93308; 93971; A9576; Q9957